=== PATIENT | female | born 1970 | race Caucasian/White ===

== ENCOUNTER 2016-04-06 16:06 | Observation (INO) | payer OTHER ==
[2016-04-06] MEDS ORDERED: PANTOPRAZOLE 40 MG/10 ML VIAL IVP STA (16:41)
[2016-04-06] MEDS ORDERED: SODIUM CHLORIDE 0.9% 1,000 ML IV STA ×3 (16:41→19:50)
[2016-04-06] MEDS ORDERED: ONDANSETRON 4 MG/2 ML VIAL IVP STA (16:41)
[2016-04-06] MEDS ORDERED: ACETAMINOPHEN IV (For NPO) 1,000 MG in EMPTY BAG 1 BAG IVPB ONE (16:43)
[2016-04-06 17:02] LABS: Basophils # (A) 0.1 k/uL (0-0.2); Basophils % (A) 0 %; CH 34.1; CHCM 35.8; Eosinophils # (A) 0.5 k/uL (0-0.7); Eosinophils % (A) 4 %; HCT 33.8 % (34.0-46.0); HDW 2.58; HGB 11.6 gm/dL (11.4-16.0); Luc # (Auto) 0.19; Luc % (Auto) 2; Lymphocytes # (A) 2.5 k/uL (1.0-4.8); Lymphocytes % (A) 20 %; MCH 32.8 pg (25.0-35.0); MCHC 34.3 g/dL (31.0-37.0); MCV 95.7 fL (80.0-100.0); Mean Platelet Volume 6.6; Monocytes # (A) 0.6 k/uL (0-1.0); Monocytes % (A) 5 %; Neutrophils % (A) 70 %; RBC 3.53 m/uL (3.80-5.40); RDW 12.4 % (11.5-15.5); WBC 12.9 k/uL (3.8-10.6); WBC (Perox) 13.15
[2016-04-06 17:12] LABS: Partial Thromboplastin Time 22.4 sec (22.0-30.0)
[2016-04-06 17:14] LABS: ALT 35 U/L (9-52); AST 19 U/L (14-36); Alkaline Phosphatase 103 U/L (38-126); Amylase 67 U/L (30-110); Anion Gap 12 mmol/L; Blood Urea Nitrogen 11 mg/dL (7-17); Calcium 9.7 mg/dL (8.4-10.2); Carbon Dioxide 19 mmol/L (22-30); Chloride 105 mmol/L (98-107); Glucose 107 mg/dL (74-99); Non-African American GFR(MDRD) >60 (>60 ml/min/1.73 sqM); Sodium 136 mmol/L (137-145); Total Bilirubin 0.3 mg/dL (0.2-1.3)
[2016-04-06 17:18] VITALS: RESP 18
--- NOTE | 2016-04-06 17:50 | CT ---
EXAMINATION TYPE: CT abdomen pelvis wo con DATE OF EXAM: 04/06/2016 5:43 PM COMPARISON: 08/10/2015 HISTORY: Pt states of abdominal pain and vomiting blood. CT DLP: 610.9 mGycm Automated exposure control for dose reduction was used. TECHNIQUE: Helical acquisition of images was performed from the lung bases through the pelvis. FINDINGS: The lung bases are clear. Heart size is normal. There is no pleural effusion. Liver spleen pancreas appear normal. Bile ducts are not dilated. There are clips from cholecystectomy . There is no adrenal mass. Kidneys have normal size and contour. There is no hydronephrosis. There i s no retroperitoneal adenopathy. There is mild atheromatous change in the abdominal aorta. Appendix a ppears normal. There are a few diverticula in the sigmoid colon. There is a metal density lateral to the mid sigmoid colon on the left side. Bladder distends smoothly. There is no sign of a pelvic mass. There is no ascites. I see no bony destructive process. Hysterectomy is noted. IMPRESSION: NEGATIVE CT SCAN OF THE ABDOMEN AND PELVIS. PREVIOUS PELVIC SURGERY. SIGMOID DIVERTICULOSIS WITHOUT E VIDENCE OF DIVERTICULITIS. NO CHANGE COMPARED TO OLD EXAM. NO SIGN OF ACUTE ABDOMEN AND PELVIS.
[2016-04-06] MEDS ORDERED: MORPHINE SULFATE 2 MG/ML SYRINGE IVP ONE (18:55)
[2016-04-06] MEDS ORDERED: METOCLOPRAMIDE 5 MG/ML 2 ML VIAL IVP STA (18:55)
--- NOTE | 2016-04-06 19:50 | ED ---
General Adult HPI - General Chief complaint: GI Bleed Stated complaint: vomiting blood Time Seen by Provider: 04/06/16 16:24 Source: patient, EMS Mode of arrival: EMS - History of Present Illness Initial comments: This 45-year-old white female presents with a complaint of nausea and vomiting. She barely had multiple episodes today. She states that she vomited up some blood today. She is also fairly ambiguous as to how much blood she vomited. She complains of some diffuse abdominal pain. She denies any measured fever. She relates that she cannot keep down any food or fluids. The onset of symptoms occurred this past evening but became worse this morning. She has apparently had somewhat similar symptoms with colitis in the past. She does have a history of gas off to reflux and irritable bowel syndrome as well. She also relates that she's had some diarrhea but denies any blood in her diarrhea. She takes Pepto-Bismol so her stools are black. She does have a history of narcotic abuse per old records and is quite adamant about asking for pain medications. She denies taking any aspirin but does take Motrin 800. No other complaints or modifying factors. - Related Data Home Medications Medication Instructions Recorded Confirmed Pantoprazole Sodium 40 mg PO BID 12/13/13 04/06/16 Propranolol HCl [Inderal] 60 mg PO BID 12/13/13 04/06/16 Simvastatin [Zocor] 40 mg PO HS 10/04/14 04/06/16 Loratadine [Claritin] 10 mg PO DAILY 02/20/15 04/06/16 Methocarbamol [Robaxin] 750 mg PO BID PRN 02/20/15 04/06/16 Dicyclomine [Bentyl] 20 mg PO QID 07/07/15 04/06/16 Ibuprofen [Motrin] 800 mg PO Q8H PRN 11/18/15 04/06/16 Sucralfate [Carafate] 1 gm PO ACHS 11/18/15 04/06/16 [id number] 1 tab PO Q6HR PRN 01/16/16 04/06/16 [Excedrin] Gabapentin 600 mg PO TID 02/24/16 04/06/16 Ranitidine HCl [Zantac] 150 mg PO HS PRN 02/24/16 04/06/16 Meclizine [Antivert] 12.5 mg PO Q6H PRN 04/06/16 04/06/16 Previous Rx's Medication Instructions Recorded Famotidine [Pepcid] 20 mg PO BID #30 tablet 08/10/15 Allergies Allergy/AdvReac Type Severity Reaction Status Date / Time Iodinated Contrast Media - Allergy Rash/Hives Verified 04/06/16 17:27 Oral and [Iodinated Contrast Media - IV Dye] metronidazole [From Flagyl] Allergy Unknown Verified 04/06/16 17:27 Penicillins Allergy Unknown Verified 04/06/16 17:27 aripiprazole [From Abilify] AdvReac Nausea & Verified 04/06/16 17:27 Vomiting cephalexin monohydrate AdvReac Nausea & Verified 04/06/16 17:27 [From Keflex] Vomiting ciprofloxacin [From Cipro] AdvReac Nausea & Verified 04/06/16 17:27 Vomiting Review of Systems ROS Statement: Those systems with pertinent positive or pertinent negative responses have been documented in the HPI. ROS Other: All systems not noted in ROS Statement are negative. Past Medical History Past Medical History: GERD/Reflux, Hyperlipidemia Additional Past Medical History / Comment(s): substance abuse, ibs, gastritis. substance abuse History of Any Multi-Drug Resistant Organisms: C-DIFF Date of last positivie culture/infection: 2011 MDRO Source:: stool Past Surgical History: Back Surgery, Cholecystectomy, Hysterectomy, Orthopedic Surgery, Tonsillectomy, Tubal Ligation Additional Past Surgical History / Comment(s): right eye cataract, bilateral shoulder surgery, right knee surgry, Past Anesthesia/Blood Transfusion Reactions: No Reported Reaction Past Psychological History: Bipolar Smoking Status: Current every day smoker Past Alcohol Use History: None Reported Additional Past Alcohol Use History / Comment(s): Patient was a smoker one and a half packs per day for 30 years and quit last weekend. She denies any medical marijuana, marijuana, street drug use. She does have history of narcotic abuse is currently receiving her medications on a regular basis from a physician in [facility]. She lives at home alone with her cat. She is currently . Past Drug Use History: None Reported - Past Family History Mother Family Medical History: Cancer Father Family Medical History: No Reported History Additional Family Medical History / Comment(s): Father at age 57 with history of cerebral palsy Son(s) Additional Family Medical History / Comment(s): She has 2 sons with no major medical problems. She states she is just on one of her sons. She does not have any brothers or sisters. General Exam - General Exam Comments Initial Comments: GENERAL: The patient is well nourished and well hydrated. VITAL SIGNS: Heart rate, blood pressure, respiratory rate reviewed as recorded in nurse's notes. EYES: Pupils are round and reactive. Extraocular movements are intact. No conjunctival / lid redness or swelling. ENT: No external evidence of injury, swelling, or ecchymosis. Airway is patent. Throat is clear. NECK: Nontender. No swelling or evidence of injury. No subcutaneous emphysema. Trachea is midline. No thyroid mass. HEART: Regular rate and rhythm. Good peripheral pulses. LUNGS/CHEST: Breath sounds clear and equal bilaterally. No rales, rhonchi, or wheezes. No ecchymosis, subcutaneous emphysema, or tenderness. ABDOMEN: There is mild diffuse tenderness. No palpable masses or organomegaly. No peritoneal signs. No abdominal wall swelling or ecchymosis. EXTREMITIES: No extremity tenderness. Normal muscle tone and function. No thoracolumbar tenderness. NEUROLOGIC: Sensation is grossly intact. Cranial nerve exam reveals face is symmetrical, tongue is midline, speech is clear. SKIN: No abrasions or ecchymosis is noted. No induration or masses noted. PSYCHIATRIC: Alert and oriented. Appropriate behavior and judgment. Rectal exam: There is no gross blood identified. There is some black stool noted in the rectal vault. No hemorrhoids identified. Course Vital Signs 04/06/16 04/06/16 04/06/16 16:12 17:03 19:47 Temperature 98.8 F Pulse Rate 88 88 92 Respiratory 16 18 18 Rate Blood Pressure 116/57 144/64 115/56 O2 Sat by Pulse 97 94 L 97 Oximetry Medical Decision Making - Medical Decision Making The patient is seen and examined. All diagnostics are reviewed. The patient receives some IV fluids as well as some Zofran and some Ofirmev. She complains of continued pain and later receives 2 mg of morphine as well as 10 mg of Reglan. The EKG shows a normal sinus rhythm at a rate of [address]-T wave changes identified. The OH interval is 130, the QRS duration is 82, and the QTc interval is 440. The laboratories reviewed. There is some mild leukocytosis. There is no anemia. The remainder of labs are fairly unremarkable. The Hemoccult is negative. Upon recheck, she states that she does not feel well enough to go home. She has not had any further vomiting or diarrhea in the ER thus far but is worried about further eating and drinking. She requests admission to the hospital for continued treatment. The case is discussed with internal medicine and they're agreeable to admission. It is felt as though she will likely does have a gastroenteritis. There are no signs of significant GI bleeding. - Lab Data Result diagrams: 04/06/16 16:20 04/06/16 16:20 Lab Results 04/06/16 04/06/16 04/06/16 Range/Units 16:20 16:20 16:20 WBC 12.9 H (3.8-10.6) k/uL RBC 3.53 L (3.80-5.40) m/uL Hgb 11.6 (11.4-16.0) gm/dL Hct 33.8 L (34.0-46.0) % MCV 95.7 (80.0-100.0) fL MCH 32.8 (25.0-35.0) pg MCHC 34.3 (31.0-37.0) g/dL RDW 12.4 (11.5-15.5) % Plt Count 505 H (150-450) k/uL Neutrophils % 70 % Lymphocytes % 20 % Monocytes % 5 % Eosinophils % 4 % Basophils % 0 % Neutrophils # 9.0 H (1.3-7.7) k/uL Lymphocytes # 2.5 (1.0-4.8) k/uL Monocytes # 0.6 (0-1.0) k/uL Eosinophils # 0.5 (0-0.7) k/uL Basophils # 0.1 (0-0.2) k/uL PT 10.0 (9.0-12.0) sec INR 1.0 (<1.1) APTT 22.4 (22.0-30.0) sec Sodium 136 L (137-145) mmol/L Potassium 4.0 (3.5-5.1) mmol/L Chloride 105 (98-107) mmol/L Carbon Dioxide 19 L (22-30) mmol/L Anion Gap 12 mmol/L BUN 11 (7-17) mg/dL Creatinine 0.81 (0.52-1.04) mg/dL Est GFR (MDRD) Af Amer >60 (>60 ml/min/1.73 sqM) Est GFR (MDRD) Non-Af >60 (>60 ml/min/1.73 sqM) Glucose 107 H (74-99) mg/dL Plasma Lactic Acid Von (0.7-2.0) mmol/L Calcium 9.7 (8.4-10.2) mg/dL Total Bilirubin 0.3 (0.2-1.3) mg/dL AST 19 (14-36) U/L ALT 35 (9-52) U/L Alkaline Phosphatase 103 (38-126) U/L Total Protein 7.0 (6.3-8.2) g/dL Albumin 4.0 (3.5-5.0) g/dL Amylase 67 (30-110) U/L Lipase 128 (23-300) U/L Stool Occult Blood (Negative) Blood Type Blood Type Confirm Blood Type Recheck Antibody Screen Spec Expiration Date 04/06/16 04/06/16 04/06/16 Range/Units 16:20 16:20 18:07 WBC (3.8-10.6) k/uL RBC (3.80-5.40) m/uL Hgb (11.4-16.0) gm/dL Hct (34.0-46.0) % MCV (80.0-100.0) fL MCH (25.0-35.0) pg MCHC (31.0-37.0) g/dL RDW (11.5-15.5) % Plt Count (150-450) k/uL Neutrophils % % Lymphocytes % % Monocytes % % Eosinophils % % Basophils % % Neutrophils # (1.3-7.7) k/uL Lymphocytes # (1.0-4.8) k/uL Monocytes # (0-1.0) k/uL Eosinophils # (0-0.7) k/uL Basophils # (0-0.2) k/uL PT (9.0-12.0) sec INR (<1.1) APTT (22.0-30.0) sec Sodium (137-145) mmol/L Potassium (3.5-5.1) mmol/L Chloride (98-107) mmol/L Carbon Dioxide (22-30) mmol/L Anion Gap mmol/L BUN (7-17) mg/dL Creatinine (0.52-1.04) mg/dL Est GFR (MDRD) Af Amer (>60 ml/min/1.73 sqM) Est GFR (MDRD) Non-Af (>60 ml/min/1.73 sqM) Glucose (74-99) mg/dL Plasma Lactic Acid Von 0.8 (0.7-2.0) mmol/L Calcium (8.4-10.2) mg/dL Total Bilirubin (0.2-1.3) mg/dL AST (14-36) U/L ALT (9-52) U/L Alkaline Phosphatase (38-126) U/L Total Protein (6.3-8.2) g/dL Albumin (3.5-5.0) g/dL Amylase (30-110) U/L Lipase (23-300) U/L Stool Occult Blood (Negative) Blood Type A Negative Blood Type Confirm A Negative Blood Type Recheck CABO Indicated Antibody Screen NEGATIVE Spec Expiration Date 04/09/2016 - 231904/06/16 Range/Units 19:30 WBC (3.8-10.6) k/uL RBC (3.80-5.40) m/uL Hgb (11.4-16.0) gm/dL Hct (34.0-46.0) % MCV (80.0-100.0) fL MCH (25.0-35.0) pg MCHC (31.0-37.0) g/dL RDW (11.5-15.5) % Plt Count (150-450) k/uL Neutrophils % % Lymphocytes % % Monocytes % % Eosinophils % % Basophils % % Neutrophils # (1.3-7.7) k/uL Lymphocytes # (1.0-4.8) k/uL Monocytes # (0-1.0) k/uL Eosinophils # (0-0.7) k/uL Basophils # (0-0.2) k/uL PT (9.0-12.0) sec INR (<1.1) APTT (22.0-30.0) sec Sodium (137-145) mmol/L Potassium (3.5-5.1) mmol/L Chloride (98-107) mmol/L Carbon Dioxide (22-30) mmol/L Anion Gap mmol/L BUN (7-17) mg/dL Creatinine (0.52-1.04) mg/dL Est GFR (MDRD) Af Amer (>60 ml/min/1.73 sqM) Est GFR (MDRD) Non-Af (>60 ml/min/1.73 sqM) Glucose (74-99) mg/dL Plasma Lactic Acid Von (0.7-2.0) mmol/L Calcium (8.4-10.2) mg/dL Total Bilirubin (0.2-1.3) mg/dL AST (14-36) U/L ALT (9-52) U/L Alkaline Phosphatase (38-126) U/L Total Protein (6.3-8.2) g/dL Albumin (3.5-5.0) g/dL Amylase (30-110) U/L Lipase (23-300) U/L Stool Occult Blood Negative (Negative) Blood Type Blood Type Confirm Blood Type Recheck Antibody Screen Spec Expiration Date Disposition Clinical Impression: Hematochezia, Gastroenteritis, Intractable nausea and vomiting, Abdominal pain , Irritable bowel syndrome (IBS), Leukocytosis, History of narcotic addiction, Diarrhea, Nausea and vomiting Disposition: ADMITTED IP TO THIS [facility] Condition: Good Time of Disposition: 20:21 Decision Date: 04/06/16 Decision Time: 20:22
[2016-04-06] MEDS ORDERED: NALOXONE 0.4 MG/ML 1 ML VIAL IV PRN (20:22)
[2016-04-06] MEDS ORDERED: METOCLOPRAMIDE 5 MG/ML 2 ML VIAL IVP PRN (20:25)
[2016-04-06] MEDS ORDERED: ACETAMINOPHEN IV (For NPO) 1,000 MG in EMPTY BAG 1 BAG IVPB PRN (20:25)
[2016-04-06] MEDS ORDERED: METHOCARBAMOL 750 MG TAB PO PRN (20:26)
[2016-04-06] MEDS ORDERED: MECLIZINE 12.5 MG TAB PO PRN (20:26)
[2016-04-06] MEDS ORDERED: ATORVASTATIN 20 MG TAB PO SCH (21:00)
[2016-04-06] MEDS: GABAPENTIN 300 MG CAP PO SCH (21:26)
[2016-04-06] MEDS: SUCRALFATE 1 GM TAB PO SCH (21:26)
[2016-04-06] MEDS: DICYCLOMINE 20 MG TAB PO SCH (21:26)
[2016-04-06] MEDS: PROPRANOLOL 20 MG TAB PO SCH (21:26)
[2016-04-06] MEDS: MORPHINE SULFATE 2 MG/ML SYRINGE IVP PRN (21:50)
[2016-04-06] MEDS: ONDANSETRON 4 MG/2 ML VIAL IVP PRN (21:54)
[2016-04-07] MEDS: MORPHINE SULFATE 2 MG/ML SYRINGE IVP PRN ×5 (01:05→14:50)
[2016-04-07] MEDS: ONDANSETRON 4 MG/2 ML VIAL IVP PRN ×4 (01:59→14:50)
[2016-04-07] MEDS: SUCRALFATE 1 GM TAB PO SCH ×2 (08:00→11:57)
[2016-04-07] MEDS: DICYCLOMINE 20 MG TAB PO SCH ×2 (08:00→11:58)
[2016-04-07] MEDS: PROPRANOLOL 20 MG TAB PO SCH (08:01)
[2016-04-07] MEDS: GABAPENTIN 300 MG CAP PO SCH ×2 (08:01→15:00)
[2016-04-07] MEDS ORDERED: PANTOPRAZOLE 40 MG/10 ML VIAL IV SCH (09:00)
[2016-04-07] MEDS ORDERED: ENOXAPARIN 40 MG/0.4 ML SYRINGE SQ SCH (09:00)
[2016-04-07] MEDS ORDERED: LORATADINE 10 MG TAB PO SCH (09:00)
[2016-04-07 09:29] LABS: Basophils % (A) 0 %; CH 33.7; CHCM 34.7; Eosinophils # (A) 0.3 k/uL (0-0.7); Eosinophils % (A) 3 %; HCT 31.1 % (34.0-46.0); HDW 2.62; HGB 10.3 gm/dL (11.4-16.0); Luc # (Auto) 0.12; Luc % (Auto) 1; Lymphocytes # (A) 3.2 k/uL (1.0-4.8); Lymphocytes % (A) 35 %; MCH 32.2 pg (25.0-35.0); MCV 97.5 fL (80.0-100.0); Mean Platelet Volume 7.3; Monocytes # (A) 0.6 k/uL (0-1.0); Monocytes % (A) 7 %; Neutrophils # (A) 4.7 k/uL (1.3-7.7); Neutrophils % (A) 53 %; RBC 3.19 m/uL (3.80-5.40); RDW 12.5 % (11.5-15.5); WBC 8.9 k/uL (3.8-10.6); WBC (Perox) 9.47
[2016-04-07 14:33] VITALS: BP 133/79; PULSE 83; TEMP 98.5
--- NOTE | 2016-04-07 18:34 | HP ---
H&P and DISCHARGE SUMMARY DATE OF ADMISSION: Patient is a 45-year-old female who came in with complaints of nausea, vomiting, epigastric abdominal pain, burning sensation. Patient does have real bad gastritis, as per the patient. Patient also vomited blood, as per the patient, because of which patient is admitted. Patient's symptoms completely resolved, patient being n.p.o., and patient will advance the diet to soft diet. If she is able to tolerate, patient will be discharged. Patient takes Protonix at home along with Maalox, which she is asked to continue. She probably may need an upper GI endoscopy. Patient takes naproxen, which was discontinued, and instead will give her tramadol for pain because of her severe gastritis. Patient denied any fever or chills. Patient denied any dysuria. Patient did have nausea and vomiting, which resolved at this point of time. Patient had minimal leukocytosis, which resolved. Home medications include: 1. Pantoprazole. 2. Propranolol. 3. Simvastatin. 4. Loratadine. 5. Methocarbamol. 6. Dicyclomine. 7. Ibuprofen. 8. Sucralfate. 9. Aspirin. 10. Acetaminophen and caffeine combination. 11. Gabapentin. 12. Ranitidine. 13. Meclizine. 14. Famotidine. ALLERGIES: 1. IODINATED RADIOCONTRAST. 2. METRONIDAZOLE. 3. PENICILLINS. 4. OMEPRAZOLE. 5. ARIPIPRAZOLE. 6. CEPHALEXIN. 7. CIPROFLOXACIN. Patient has a history of colitis in the past, although CT of the abdomen during this hospitalization was essentially negative for any diverticulitis. PAST SURGICAL HISTORY: 1. Back surgery. 2. Cholecystectomy. 3. Hysterectomy. 4. Orthopedic surgery in the past. 5. Tonsillectomy. 6. Tubal ligation surgery. SOCIAL HISTORY: Patient used to smoke until this weekend; used to smoke half a pack per day. She denied any drug abuse. FAMILY HISTORY: Mother had cancer. Father had cerebral palsy. PHYSICAL EXAMINATION: VITAL SIGNS: Temperature 98.5, pulse of 83, respiratory rate of 18. Blood pressure is 133/79. Saturating at 98% on room air. GENERAL: The patient is alert and oriented x3, not in any acute distress. Well developed, well nourished. HEENT: Pupils are round and equally reacting to light. EOMI. No scleral icterus. No conjunctival pallor. Normocephalic, atraumatic. No pharyngeal erythema. No thyromegaly. CARDIOVASCULAR: S1 and S2 present. No murmurs, rubs, or gallops. PULMONARY: Chest is clear to auscultation, no wheezing or crackles. ABDOMEN: Soft, nontender, nondistended, normoactive bowel sounds. No palpable organomegaly. MUSCULOSKELETAL: No joint swelling or deformity. EXTREMITIES: No cyanosis, clubbing, or pedal edema. NEUROLOGICAL: Gross neurological examination did not reveal any focal deficits. SKIN: No rashes. LABORATORY DATA: CBC, CMP are abnormal for minimal drop in hemoglobin from 11.6 to 10.3, which completely resolved at this point of time. Mildly low bicarbonate with normal anion gap of 12. Low bicarbonate is secondary to nausea and vomiting, probably. ASSESSMENT AND PLAN: 1. Gastritis or peptic ulcer disease leading to nausea, vomiting; symptoms improved at this point of time. Since her symptoms improved, will advance diet. If she is able to tolerate, patient will be discharged to follow up with Gastroenterology as an outpatient and with her primary care physician as an outpatient. Naproxen will be discontinued, as mentioned above. 2. Hyperlipidemia. 3. Hypertension. 4. Metabolic acidosis secondary to loss of bicarbonate from the gastrointestinal tract. Patient will be discharged today. This dictation is both H&P and discharge summary. Leukocytosis is reactive response. Patient will be discharged today in stable medical condition to home. Patient will follow up with Dr. Antonia Grimes in about 3 to 7 days; Dr. Kala Dey in about a week. Activity as tolerated. Cardiac diet.
== END 2016-04-07 16:11 | disposition home or self-care (01) ==
LOC: EC 16:06 → 4MS4W 20:22
PROVIDERS: ADMIT Internal Medicine; ATTEND Internal Medicine
DX: K29.70 Gastritis, unspecified, without bleeding (principal); E78.5 Hyperlipidemia, unspecified; I10 Essential (primary) hypertension; E87.2 Acidosis; K21.9 Gastro-esophageal reflux disease without esophagitis; K58.9 Irritable bowel syndrome, unspecified; Z16.24 Resistance to multiple antibiotics; F17.200 Nicotine dependence, unspecified, uncomplicated; F11.20 Opioid dependence, uncomplicated; Z79.899 Other long term (current) drug therapy; Z88.0 Allergy status to penicillin; Z88.1 Allergy status to other antibiotic agents; Z91.041 Radiographic dye allergy status; Z80.9 Family history of malignant neoplasm, unspecified
CPT/HCPCS: 36415; 93005; 86900; 86901; 80053; 82150; 83605; 83690; 85025 ×2; 85610; 85730; 86850; 82272; 74176; 99285; 96374; 96375 ×4; 96361 ×4; G0378 ×2; J2765; J2405 ×2; J1650; J2270 ×2; J0131; C9113 ×2; 96372; 96376

== ENCOUNTER 2016-04-09 04:38 | Observation (INO) | payer OTHER ==
[2016-04-09] MEDS ORDERED: SODIUM CHLORIDE 0.9% 1,000 ML IV ONE (04:46)
[2016-04-09] MEDS ORDERED: SODIUM CHLORIDE 0.9% 1,000 ML IV STA (04:46)
[2016-04-09] MEDS ORDERED: SODIUM CHLORIDE 0.9% 500 ML IV STA (04:46)
[2016-04-09] MEDS ORDERED: ONDANSETRON 4 MG/2 ML VIAL IVP PRN (04:46)
[2016-04-09] MEDS ORDERED: MORPHINE SULFATE 4 MG/ML SYRINGE IV STA (04:46)
[2016-04-09] MEDS ORDERED: MORPHINE SULFATE 2 MG/ML SYRINGE IVP PRN (04:46)
[2016-04-09] MEDS ORDERED: ACETAMINOPHEN IV (For NPO) 1,000 MG in EMPTY BAG 1 BAG IVPB STA (04:51)
[2016-04-09] MEDS ORDERED: ACETAMINOPHEN IV (For NPO) 1,000 MG in EMPTY BAG 1 BAG IVPB PRN (04:51)
[2016-04-09] MEDS ORDERED: PANTOPRAZOLE 40 MG/10 ML VIAL IVP STA (04:52)
--- NOTE | 2016-04-09 04:52 | ED ---
General Adult HPI - General Chief complaint: Abdominal Pain Stated complaint: nausea,vomiting Time Seen by Provider: 04/09/16 04:46 Source: patient, EMS, RN notes reviewed, old records reviewed Mode of arrival: EMS Limitations: no limitations - History of Present Illness Initial comments: This is a 45-year-old female the ER for evaluation nausea vomiting. Intractable nausea vomiting diarrhea. Patient with similar symptoms in the ER 3 days ago is symptoms are progressing and getting worse. No help with outpatient therapy. Patient also notes fever today. Continue vomiting unable to keep anything down. No chest pain no bowel pain or shortness of breath. - Related Data Home Medications Medication Instructions Recorded Confirmed Pantoprazole Sodium 40 mg PO BID 12/13/13 04/06/16 Propranolol HCl [Inderal] 60 mg PO BID 12/13/13 04/06/16 Simvastatin [Zocor] 40 mg PO HS 10/04/14 04/06/16 Loratadine [Claritin] 10 mg PO DAILY 02/20/15 04/06/16 Methocarbamol [Robaxin] 750 mg PO BID PRN 02/20/15 04/06/16 Dicyclomine [Bentyl] 20 mg PO QID 07/07/15 04/06/16 Sucralfate [Carafate] 1 gm PO ACHS 11/18/15 04/06/16 [id number] 1 tab PO Q6HR PRN 01/16/16 04/06/16 [Excedrin] Gabapentin 600 mg PO TID 02/24/16 04/06/16 Ranitidine HCl [Zantac] 150 mg PO HS PRN 02/24/16 04/06/16 Meclizine [Antivert] 12.5 mg PO Q6H PRN 04/06/16 04/06/16 Previous Rx's Medication Instructions Recorded Famotidine [Pepcid] 20 mg PO BID #30 tablet 08/10/15 traMADol HCL [Ultram] 50 mg PO Q4HR PRN #20 tab 04/07/16 Allergies Allergy/AdvReac Type Severity Reaction Status Date / Time Iodinated Contrast Media - Allergy Rash/Hives Verified 04/09/16 04:42 Oral and [Iodinated Contrast Media - IV Dye] metronidazole [From Flagyl] Allergy Unknown Verified 04/09/16 04:42 Penicillins Allergy Unknown Verified 04/09/16 04:42 aripiprazole [From Abilify] AdvReac Nausea & Verified 04/09/16 04:42 Vomiting cephalexin monohydrate AdvReac Nausea & Verified 04/09/16 04:42 [From Keflex] Vomiting ciprofloxacin [From Cipro] AdvReac Nausea & Verified 04/09/16 04:42 Vomiting Review of Systems ROS Statement: Those systems with pertinent positive or pertinent negative responses have been documented in the HPI. ROS Other: All systems not noted in ROS Statement are negative. Past Medical History Past Medical History: GERD/Reflux, Hyperlipidemia Additional Past Medical History / Comment(s): substance abuse (pills), ibs, gastritis. substance abuse History of Any Multi-Drug Resistant Organisms: C-DIFF Date of last positivie culture/infection: 2011 MDRO Source:: stool Past Surgical History: Back Surgery, Cholecystectomy, Hysterectomy, Orthopedic Surgery, Tonsillectomy, Tubal Ligation Additional Past Surgical History / Comment(s): right eye cataract, bilateral shoulder surgery, right knee surgry, Past Anesthesia/Blood Transfusion Reactions: No Reported Reaction Past Psychological History: Bipolar Smoking Status: Current every day smoker Past Alcohol Use History: None Reported Additional Past Alcohol Use History / Comment(s): She does have history of narcotic abuse. She lives at home alone with her cat. Past Drug Use History: None Reported - Past Family History Mother Family Medical History: Cancer Father Family Medical History: No Reported History Additional Family Medical History / Comment(s): Father at age 57 with history of cerebral palsy Son(s) Additional Family Medical History / Comment(s): She has 2 sons with no major medical problems. She states she is just on one of her sons. She does not have any brothers or sisters. General Exam Limitations: no limitations General appearance: alert, in no apparent distress, anxious Head exam: Present: atraumatic, normocephalic, normal inspection Eye exam: Present: normal appearance, PERRL, EOMI. Absent: scleral icterus, conjunctival injection, periorbital swelling ENT exam: Present: normal exam, mucous membranes moist Neck exam: Present: normal inspection. Absent: tenderness, meningismus, lymphadenopathy Respiratory exam: Present: normal lung sounds bilaterally. Absent: respiratory distress, wheezes, rales, rhonchi, stridor Cardiovascular Exam: Present: regular rate, normal rhythm, normal heart sounds. Absent: systolic murmur, diastolic murmur, rubs, gallop, clicks GI/Abdominal exam: Present: soft, normal bowel sounds. Absent: distended, tenderness, guarding, rebound, rigid Extremities exam: Present: normal inspection, full ROM, normal capillary refill. Absent: tenderness, pedal edema, joint swelling, calf tenderness Back exam: Present: normal inspection Neurological exam: Present: alert, oriented X3, CN II-XII intact Psychiatric exam: Present: normal affect, normal mood Skin exam: Present: warm, dry, intact, normal color. Absent: rash Course Vital Signs 04/09/16 04:42 Temperature 100.2 F H Pulse Rate 89 Respiratory 16 Rate Blood Pressure 138/63 O2 Sat by Pulse 98 Oximetry - Reevaluation(s) Reevaluation #1: 04/09/16 04:51 Patient's symptoms appear to be improved Medical Decision Making - Medical Decision Making 3 [facility] ER for evaluation. The patient is a came in here for evaluation of nausea vomiting. Nausea vomiting diarrhea. Patient even palpation again progressively worse regardless medications taken at home unable to keep down fluids or food. Patient will be admitted for symptom control - Radiology Data Radiology results: report reviewed (X-ray abdominal series with chest is negative), image reviewed Disposition Clinical Impression: Nausea & vomiting, Gastroenteritis, Failure of outpatient treatment Disposition: ADMITTED IP TO THIS [facility] Condition: Fair Referrals: Antonia Grimes MD [Primary Care Provider] - 1-2 days
[2016-04-09] MEDS: SODIUM CHLORIDE 0.9% 1,000 ML IV STA ×2 (05:09→10:31)
[2016-04-09 05:34] LABS: Basophils % (A) 0 %; CH 34.2; CHCM 36.6; Eosinophils # (A) 0.3 k/uL (0-0.7); Eosinophils % (A) 3 %; HCT 32.7 % (34.0-46.0); HGB 11.5 gm/dL (11.4-16.0); Luc # (Auto) 0.08; Luc % (Auto) 1; Lymphocytes # (A) 2.2 k/uL (1.0-4.8); Lymphocytes % (A) 18 %; MCHC 35.1 g/dL (31.0-37.0); Mean Platelet Volume 7.3; Monocytes # (A) 0.8 k/uL (0-1.0); Monocytes % (A) 6 %; Neutrophils % (A) 72 %; RBC 3.47 m/uL (3.80-5.40); RDW 12.5 % (11.5-15.5); WBC 12.4 k/uL (3.8-10.6); WBC (Perox) 12.84
[2016-04-09 05:53] LABS: ALT 41 U/L (9-52); AST 26 U/L (14-36); Alkaline Phosphatase 91 U/L (38-126); Anion Gap 10 mmol/L; Blood Urea Nitrogen 8 mg/dL (7-17); Calcium 9.7 mg/dL (8.4-10.2); Carbon Dioxide 23 mmol/L (22-30); Chloride 103 mmol/L (98-107); Glucose 121 mg/dL (74-99); Magnesium 1.6 mg/dL (1.6-2.3); Non-African American GFR(MDRD) >60 (>60 ml/min/1.73 sqM); Potassium 4.1 mmol/L (3.5-5.1); Sodium 136 mmol/L (137-145); Total Bilirubin 0.4 mg/dL (0.2-1.3); Total Protein 6.8 g/dL (6.3-8.2)
[2016-04-09 06:04] LABS: Creatine Kinase 33 U/L (30-135)
[2016-04-09 06:14] LABS: Creatine Kinase MB <0.2 ng/mL (0.0-2.4)
[2016-04-09 06:15] LABS: Appearance,Urine Clear (Clear); Bilirubin,Urine Negative (Negative); Glucose,Urine (UA) Negative (Negative); Ketones,Urine Negative (Negative); Leukocyte Esterase,Urine Negative (Negative); Mucus,Urine Rare /hpf; Nitrite,Urine Negative (Negative); Particle Count 2656; Protein,Urine 2+ (Negative); RBC,Urine 10 /hpf (0-5); Specific Gravity,Urine 1.007 (1.001-1.035); Squamous Epithelial Cell,Urine 1 /hpf (0-4); UA Billing (MACRO vs. MICRO) MICRO; Urobilinogen,Urine <2.0 mg/dL (<2.0); WBC,Urine 1 /hpf (0-5)
--- NOTE | 2016-04-09 06:52 | XR ---
EXAMINATION TYPE: XR abdomen acute w cxr DATE OF EXAM: 04/09/2016 5:25 AM COMPARISON: 01/31/2016 HISTORY: Abdominal pain TECHNIQUE: Single view of the chest and 2 views of the abdomen are submitted. FINDINGS: Heart and mediastinum are normal. Lungs are clear. Bowel gas pattern is normal. There is no sign of i ntestinal obstruction or pneumoperitoneum. Fecal pattern is normal. There are clips from tubal ligati on.. IMPRESSION: Nonacute abdomen. Normal chest. No change.
[2016-04-09] MEDS ORDERED: PANTOPRAZOLE 40 MG/10 ML VIAL IVP SCH (09:00)
[2016-04-09] MEDS: ENOXAPARIN 40 MG/0.4 ML SYRINGE SQ SCH (10:29)
[2016-04-09] MEDS: METOCLOPRAMIDE 5 MG TAB PO SCH (16:30)
--- NOTE | 2016-04-09 17:16 | P.HPIM ---
History of Present Illness H&P Date: 04/09/16 Chief Complaint: Abdominal pain This is a 45-year-old female was seen by 2 other physicians prior to me and was admitted and discharged home as patient was noted to have abdominal pain of unknown etiology. Patient apparently has had a significant workup done in the past in regards to this. Patient was admitted to the hospital previously with complaints of epigastric pain with nausea however no episodes of vomitus. Patient apparently request for multiple narcotics there was some pain seeking behavior that was felt by the previous physicians. Patient was discharged home on oral medications however came back in to the hospital with complaints of epigastric pain. An abdominal series was done today no abnormality was found. Patient had a T-max of 100.2. Patient denies having any difficulty breathing, chest pain, cough, generalized weakness or other constitutional symptoms. Patient is having any urinary urgency or frequency or diarrhea. Patient's only complaints are epigastric pain and nausea not associated with vomitus at this time. Patient states that she has a history of gastritis and is concerned that it has returned. Patient is on a PPI, H2 jose g, Carafate unsure why the same medications or be maintained on at this time. Laboratory values were within normal limits at the time of my examination patient appeared comfortable. Review of Systems All systems: negative (Noted in HPI) Past Medical History Past Medical History: GERD/Reflux, Hyperlipidemia, Rheumatoid Arthritis (RA) Additional Past Medical History / Comment(s): Pt recently admitted to [facility] on with nausea, vomiting and epigastric pain. Other hx: substance abuse ( pills), ibs, colitis, gastritis, chronic back pain, DDD, sinus problems. substance abuse History of Any Multi-Drug Resistant Organisms: C-DIFF Date of last positivie culture/infection: 2011 MDRO Source:: stool Past Surgical History: Cholecystectomy, Hysterectomy, Joint Replacement, Orthopedic Surgery, Tonsillectomy, Tubal Ligation Additional Past Surgical History / Comment(s): right eye cataract, R shoulder arthroscopy with anchors placed then total R shoulder, right knee surgry for spurs, skin tags off back and L shoulder (benign). Past Anesthesia/Blood Transfusion Reactions: No Reported Reaction Past Psychological History: Bipolar Additional Psychological History / Comment(s): Pt states she has had increased depression lately r/t health issues. She denies suicidal thoughts or plans. She does not wich to be . She does not have any pychiatric care. She has paper work which she is having difficulty completing it is for "Adult services" . She resides alone and has a cat. 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 Smoking Status: Former smoker Past Alcohol Use History: None Reported Additional Past Alcohol Use History / Comment(s): Pt states she started smoking as a teen and quit yesterday 04/08/16. Past Drug Use History: None Reported Additional Drug Use History / Comment(s): Pt states she has hx of narcotic abuse but it was yrs ago. - Past Family History Mother Family Medical History: Cancer Father Family Medical History: No Reported History Additional Family Medical History / Comment(s): Father at age 57 with history of cerebral palsy Son(s) Additional Family Medical History / Comment(s): She has 2 sons with no major medical problems. She does not have any brothers or sisters. Medications and Allergies Home Medications Medication Instructions Recorded Confirmed Type Pantoprazole Sodium 40 mg PO BID 12/13/13 04/09/16 History Simvastatin [Zocor] 40 mg PO HS 10/04/14 04/09/16 History Loratadine [Claritin] 10 mg PO DAILY 02/20/15 04/09/16 History Methocarbamol [Robaxin] 750 mg PO BID PRN 02/20/15 04/09/16 History Dicyclomine [Bentyl] 20 mg PO QID 07/07/15 04/09/16 History Zrzhysk-Hiod-Hoxq 231-155-12Ln 1 tab PO Q6HR PRN 01/16/16 04/09/16 History [Excedrin] Gabapentin 600 mg PO TID 02/24/16 04/09/16 History Ranitidine HCl [Zantac] 150 mg PO HS PRN 02/24/16 04/09/16 History Meclizine [Antivert] 12.5 mg PO Q6H PRN 04/06/16 04/09/16 History Allergies Allergy/AdvReac Type Severity Reaction Status Date / Time Iodinated Contrast Media - Allergy Rash/Hives Verified 04/09/16 08:49 Oral and [Iodinated Contrast Media - IV Dye] metronidazole [From Flagyl] Allergy Unknown Verified 04/09/16 08:49 Penicillins Allergy Unknown Verified 04/09/16 08:49 aripiprazole [From Abilify] AdvReac Nausea & Verified 04/09/16 08:49 Vomiting cephalexin monohydrate AdvReac Nausea & Verified 04/09/16 08:49 [From Keflex] Vomiting ciprofloxacin [From Cipro] AdvReac Nausea & Verified 04/09/16 08:49 Vomiting Physical Exam Vitals: Vital Signs Temp Pulse Pulse Resp BP BP Pulse Ox 04/09/16 15:00 99.3 F 97 16 127/70 94 L 04/09/16 10:53 20 04/09/16 08:12 99 F 83 20 109/68 97 04/09/16 06:22 98.6 F 89 16 114/61 97 Intake and Output 04/09/16 04/09/16 04/09/16 06:59 14:59 22:59 Other: Voiding Method Toilet Toilet # Voids 2 Physical exam Gen. appearance oriented 3 in no distress Neck is supple no JVD Lungs good air entry clear to auscultation no rhonchi or wheezing Heart S1-S2 heard regular rate and rhythm no murmurs appreciated Abdomen is soft nontender no organomegaly bowel sounds are intact Neurologically cranial nerves II-12 grossly intact no focal motor or sensory deficits noted Skin no abnormalities appreciated Results CBC & Chem 7: 04/09/16 04:55 04/09/16 04:55 Labs: Abnormal Lab Results - Last 24 Hours (Table) 04/09/16 04/09/16 04/09/16 Range/Units 04:55 04:55 04:55 WBC 12.4 H (3.8-10.6) k/uL RBC 3.47 L (3.80-5.40) m/uL Hct 32.7 L (34.0-46.0) % Plt Count 469 H (150-450) k/uL Neutrophils # 9.0 H (1.3-7.7) k/uL Sodium 136 L (137-145) mmol/L Glucose 121 H (74-99) mg/dL Plasma Lactic Acid Von 0.6 L (0.7-2.0) mmol/L Urine Protein (Negative) Urine Blood (Negative) Urine RBC (0-5) /hpf Urine Mucus (None) /hpf 04/09/16 Range/Units 05:50 WBC (3.8-10.6) k/uL RBC (3.80-5.40) m/uL Hct (34.0-46.0) % Plt Count (150-450) k/uL Neutrophils # (1.3-7.7) k/uL Sodium (137-145) mmol/L Glucose (74-99) mg/dL Plasma Lactic Acid Von (0.7-2.0) mmol/L Urine Protein 2+ H (Negative) Urine Blood Small H (Negative) Urine RBC 10 H (0-5) /hpf Urine Mucus Rare H (None) /hpf Microbiology - Last 24 Hours (Table) 04/09/16 05:50 Urine Culture - Preliminary Urine,Voided Thrombosis Risk Factor Assmnt - Choose All That Apply Any of the Below Risk Factors Present?: Yes Each Factor Represents 1 point: Age 41-60 years, Obesity (BMI >25) Other Risk Factors: No Other congenital or acquired thrombophilia - If yes, enter type in comment: No Thrombosis Risk Factor Assessment Total Risk Factor Score: 2 Thrombosis Risk Factor Assessment Level: Low Risk Assessment and Plan Plan: #1 acute gastroenteritis likely viral there may be an aspect of exacerbation of gastritis. #2 pain seeking behavior with opioid dependence #3 intractable nausea vomiting #4 history of rheumatoid arthritis #5 disability Plan This is a difficult patient as patient gets admitted to the hospital with nonspecific symptoms. Does not appear to have any abnormalities clinically and on prior evaluations radiologically as well. Patient does have some pain seeking behavior. I did discuss that I do not want to entertain any opiates at this time as patient was not on a prior to admission and a do not see need to treat nausea and epigastric pain with that. Patient will be continued on her anti-acid reflux medications patient will be continued on a clear liquid diet and advance as tolerated. I discussed this with the patient that patient was started on Reglan 5 mg by mouth twice a day and Zofran when necessary and symptomatically control of her symptoms may be beneficial. If patient has significant GI symptoms a concern should be noted for some withdrawal of opioids as well. can likely be discharged in the next 24 hours.
[2016-04-09] MEDS: ACETAMINOPHEN TAB 325 MG TAB PO PRN (17:49)
[2016-04-10] MEDS: ACETAMINOPHEN TAB 325 MG TAB PO PRN (05:49)
[2016-04-10] MEDS: ENOXAPARIN 40 MG/0.4 ML SYRINGE SQ SCH (08:30)
[2016-04-10] MEDS: METOCLOPRAMIDE 5 MG TAB PO SCH ×3 (08:30→17:31)
[2016-04-10] MEDS: PANTOPRAZOLE 40 MG TABLET PO SCH (08:30)
[2016-04-10] MEDS: SODIUM CHLORIDE 0.9% 1,000 ML IV SCH ×2 (14:42→23:05)
[2016-04-10] MEDS: traMADol 50 MG TAB PO PRN ×2 (15:05→22:56)
[2016-04-10] MEDS: ONDANSETRON 4 MG TAB PO PRN ×2 (15:10→22:57)
[2016-04-10] MEDS ORDERED: traMADol 50 MG TAB PO SCH (16:00)
[2016-04-10 17:19] VITALS: BMI 31.5
[2016-04-10] MEDS ORDERED: METHOCARBAMOL 750 MG TAB PO PRN (19:05)
[2016-04-10] MEDS ORDERED: ASPIRIN-ACET-CAFF 250-250-65MG 1 EACH TAB PO PRN (19:05)
[2016-04-10] MEDS ORDERED: MECLIZINE 12.5 MG TAB PO PRN (19:05)
[2016-04-10] MEDS: GABAPENTIN 300 MG CAP PO SCH (21:06)
[2016-04-10] MEDS: ATORVASTATIN 20 MG TAB PO SCH (21:06)
[2016-04-10] MEDS: DICYCLOMINE 20 MG TAB PO SCH (21:06)
[2016-04-11] MEDS: METOCLOPRAMIDE 5 MG TAB PO SCH ×3 (07:54→17:41)
[2016-04-11] MEDS: PANTOPRAZOLE 40 MG TABLET PO SCH (07:54)
[2016-04-11] MEDS: DICYCLOMINE 20 MG TAB PO SCH ×4 (07:54→21:08)
[2016-04-11] MEDS: ENOXAPARIN 40 MG/0.4 ML SYRINGE SQ SCH (07:54)
[2016-04-11] MEDS: GABAPENTIN 300 MG CAP PO SCH ×3 (07:54→21:08)
[2016-04-11] MEDS: LORATADINE 10 MG TAB PO SCH (07:54)
[2016-04-11] MEDS: traMADol 50 MG TAB PO PRN ×2 (07:55→17:45)
--- NOTE | 2016-04-11 08:01 | PN ---
DATE OF SERVICE: 04/10/2016 This 45-year-old woman admitted with incessant abdominal pain, also complaining of some diarrhea. The patient was unable to keep anything down according to the patient. The patient also has history of irritable bowel syndrome and multiple other complex medical issues. Patient is scheduled for outpatient endoscopy apparently. PAST MEDICAL HISTORY: Reviewed. REVIEW OF SYSTEMS: CARDIOVASCULAR: No angina. RESPIRATORY: As mentioned earlier. GI: As mentioned earlier. : No dysuria. NERVOUS SYSTEM: No numbness or weakness. Medications are reviewed and include: 1. Tylenol 650 q.4 p.r.n. 2. Lovenox 40 mg subcu daily. 3. Reglan 5 mg. 4. Protonix. 5. Ultram. PHYSICAL EXAMINATION: Alert and oriented x3. Pulse 119, blood pressure 130/81, respirations 20, temperature 98.8, pulse ox 99% on room air. HEENT: Conjunctivae normal. NECK: No jugular venous distention. CARDIOVASCULAR: S1 and S2, muffled. RESPIRATORY: Breath sounds diminished at the bases. A few scattered rhonchi and crackles. ABDOMEN: Soft. Mild diffuse tenderness present. No guarding. No rigidity. No mass palpable. LEGS: No edema, no swelling. NERVOUS SYSTEM: Higher function as mentioned. Moves all four limbs. No focal motor deficits. LYMPHATIC: No lymphadenopathy in the neck, axillae or groin. SKIN: No ulcer, rash or bleeding. LABS: WBC 12.3, hemoglobin 11.5. Sodium 136. UA noted. ASSESSMENT: 1. Abdominal pain for evaluation rule out acute gastritis or peptic ulcer disease. 2. Increased white blood cell count, reactive. 3. Increased platelets. 4. Hyponatremia. 5. Rule out irritable bowel syndrome. 6. History of gastroesophageal reflux disease. 7. Hyperlipidemia. 8. History of rheumatoid arthritis. 9. History of polysubstance abuse. 10. Previous history of Clostridium difficile. 11. History of degenerative joint disease. 12. History of bipolar. 13. Remote history nicotine dependence. RECOMMENDATIONS AND DISCUSSION: In this 45-year-old woman present with multiple complex medical issues. Will monitor the patient closely. Continue the current medications and symptomatic treatment. I would recommend an extremely bland diet at this time and gastroenterology evaluation with Dr. Acevedo or Dr. Dey for possible endoscopies. Guarded prognosis because of multiple complex medical issues. Further recommendations to follow.
[2016-04-11 09:02] LABS: Basophils # (A) 0.1 k/uL (0-0.2); Basophils % (A) 1 %; CH 33.7; CHCM 34.4; Eosinophils # (A) 0.2 k/uL (0-0.7); Eosinophils % (A) 3 %; HCT 32.9 % (34.0-46.0); HDW 2.62; HGB 10.9 gm/dL (11.4-16.0); Luc # (Auto) 0.19; Luc % (Auto) 2; Lymphocytes # (A) 3.3 k/uL (1.0-4.8); Lymphocytes % (A) 42 %; MCH 32.5 pg (25.0-35.0); MCHC 33.1 g/dL (31.0-37.0); MCV 98.3 fL (80.0-100.0); Mean Platelet Volume 6.5; Monocytes # (A) 0.6 k/uL (0-1.0); Monocytes % (A) 8 %; Neutrophils # (A) 3.6 k/uL (1.3-7.7); Neutrophils % (A) 46 %; RBC 3.35 m/uL (3.80-5.40); RDW 12.8 % (11.5-15.5)
[2016-04-11 09:18] LABS: Anion Gap 10 mmol/L; Blood Urea Nitrogen 7 mg/dL (7-17); Calcium 9.2 mg/dL (8.4-10.2); Carbon Dioxide 22 mmol/L (22-30); Chloride 108 mmol/L (98-107); Glucose 81 mg/dL (74-99); Non-African American GFR(MDRD) >60 (>60 ml/min/1.73 sqM); Sodium 140 mmol/L (137-145)
[2016-04-11] MEDS: SODIUM CHLORIDE 0.9% 1,000 ML IV SCH ×2 (09:41→21:08)
--- NOTE | 2016-04-11 10:51 | CONS ---
DATE OF CONSULTATION: 04/11/2016 REASON FOR CONSULTATION: Nausea, vomiting, diarrhea. HISTORY OF PRESENT ILLNESS: The patient is a 45-year-old white female who is known to me from multiple previous office visits. Has history of severe irritable bowel syndrome that was diagnosed several years ago. She has been maintained on Bentyl on an outpatient basis. The last time she was seen in the office was about a year ago. The patient was admitted to the hospital with acute onset of nausea, vomiting, and diarrhea for the last few weeks duration. She states that since being in the hospital she has had such intense nausea that she is not able to tolerate even liquids. She complains of diffuse abdominal pain, mostly in the epigastric area. However, since being in the hospital her diarrhea has resolved and in fact she did not have any bowel movements all day yesterday or today. She denies any rectal bleeding or melena. She reports no recent weight loss. She had a colonoscopy done by me in January 2015, which showed scattered sigmoid diverticulosis, but no evidence of colitis or colorectal neoplasia. She also had an upper endoscopy done about a year ago showing some gastritis. No prior history of peptic ulcer disease or recent NSAID use. Since being in the hospital she continues to complain of severe abdominal pain. She reports no fever, chills, night sweats. PAST MEDICAL HISTORY: Significant for GERD, IBS, rheumatoid arthritis, hyperlipidemia, substance abuse, chronic sinusitis. PAST SURGICAL HISTORY: Hysterectomy, cholecystectomy, tubal ligation, tonsillectomy, EGD, colonoscopy in the last one year. SOCIAL HISTORY: Smoking in the past. No smoking currently. No alcohol use. FAMILY HISTORY: Mother had some kind of cancer. Father had cerebral palsy ALLERGIES: None. REVIEW OF SYSTEMS: CARDIOPULMONARY: No chest pain or shortness of breath. GENITOURINARY: No dysuria or hematuria. MUSCULOSKELETAL: Unremarkable. ALLERGIES: PENICILLIN, FLAGYL, ABILIFY, KEFLEX, CIPRO, IV DYE. REVIEW OF SYSTEMS: CARDIOPULMONARY: No chest pain or shortness of breath. GENITOURINARY: No dysuria or hematuria. MUSCULOSKELETAL: Chronic back pain. NEUROLOGY: Unremarkable. PSYCHIATRIC: History of anxiety, depression. ENT: Vision: Unremarkable. CONSTITUTIONAL: No recent weight loss. No fevers, chills or night sweats. ENDOCRINE: Unremarkable. HEMATOLOGY: Unremarkable. On physical examination, she appears comfortable in no apparent distress. Vitals as are stable. Blood pressure is 128/82, pulse is 75, temperature 98.2. HEENT: Examination is unremarkable. Conjunctivae pink. Sclerae anicteric. Oral cavity, no lesions. NECK: No JVD or lymph node enlargement. CHEST: Clear to auscultation. HEART: Regular rate and rhythm. ABDOMEN: Soft. Bowel sounds are positive. No organomegaly. EXTREMITIES: No pedal edema. SKIN: No rashes. NEURO: Alert and oriented x4. No focal deficits. LABS: WBC 12.4, hemoglobin 11.5. Platelets are normal. Basic metabolic panel is within normal limits. IMPRESSION: This is a lady with a long-standing history of irritable bowel syndrome, admitted to the hospital with nausea, vomiting, and diarrhea for the last few weeks' duration. Most likely her symptoms are related to IBS. As mentioned above, last upper endoscopy as well as colonoscopy were in 2014 and were unremarkable. Because of the ongoing epigastric pain, the possibility of an upper GI pathology cannot be excluded, though it is very unlikely. RECOMMENDATIONS: 1. Continue with clear liquid diet. 2. Continue with IV Protonix. 3. Will proceed with an upper endoscopy tomorrow. Since the colonoscopy a year ago was within normal limits, no need to proceed with any colonoscopic intervention at the present time. Also, continue with Bentyl 20 mg 4 times daily. We will follow her closely during her hospital stay. Thank you for this consultation.
[2016-04-11 15:03] VITALS: RESP 20
[2016-04-11] MEDS: ATORVASTATIN 20 MG TAB PO SCH (21:08)
--- NOTE | 2016-04-11 22:28 | PN ---
DATE OF SERVICE: 04/11/2016 This 45-year-old woman was admitted with abdominal pain, scheduled for EGD by Dr. Dey today. Dr. Dey is recommending no colonoscopy ( ) most recent colonoscopy. There is no history of fevers or rigors. No history of headache or loss of consciousness. The patient had diffuse abdominal pain. The possibility of irritable bowel syndrome is also considered. On exam, alert, oriented x3. Pulse 77, blood pressure 130/70, respirations 18, temperature 98.4, pulse ox 94% on room air. HEENT: Conjunctivae normal. NECK: Supple. CARDIOVASCULAR: S1 and S2 muffled. LUNGS: Breath sounds diminished at the bases. No rhonchi, no crackles. ABDOMEN: Soft. Mild diffuse discomfort. No guarding, rigidity, tenderness. EXTREMITIES: Legs no edema. NERVOUS SYSTEM: No focal deficits. LABS: WBC is 8, hemoglobin 10.9. UA noted. Influenza A is negative. ASSESSMENT: 1. Abdominal pain for evaluation, possible acute gastritis, rule out peptic ulcer disease. 2. Increased WBC, reactive. 3. Possible irritable bowel syndrome. 4. Increased platelets. 5. Hyponatremia. 6. History of gastroesophageal reflux disease. 7. Hyperlipidemia. 8. History of rheumatoid arthritis. 9. History of polysubstance abuse. 10. History of Clostridium difficile colitis. 11. History of degenerative joint disease. 12. History of bipolar disorder. 13. Remote history of nicotine dependence. RECOMMENDATIONS: Recommend to continue current medications, continue with monitoring and symptomatic treatment. Otherwise at this time EGD per Dr. Dey. Advance soft diet. Dietary consultation. Guarded prognosis because of multiple complex medical issues. Further recommendations to follow.
[2016-04-12] MEDS: SODIUM CHLORIDE 0.9% 1,000 ML IV SCH ×2 (06:32→16:04)
[2016-04-12] MEDS: METOCLOPRAMIDE 5 MG TAB PO SCH ×3 (07:52→16:16)
[2016-04-12] MEDS: PANTOPRAZOLE 40 MG TABLET PO SCH (07:52)
[2016-04-12] MEDS: DICYCLOMINE 20 MG TAB PO SCH ×2 (07:53→13:15)
[2016-04-12 09:18] VITALS: BP 124/74; PULSE 88; TEMP 97.7
[2016-04-12 09:23] LABS: Basophils # (A) 0.1 k/uL (0-0.2); Basophils % (A) 1 %; CH 33.7; CHCM 34.3; Eosinophils # (A) 0.3 k/uL (0-0.7); Eosinophils % (A) 4 %; HCT 32.3 % (34.0-46.0); HDW 2.66; HGB 10.7 gm/dL (11.4-16.0); Luc # (Auto) 0.17; Luc % (Auto) 3; Lymphocytes # (A) 2.1 k/uL (1.0-4.8); Lymphocytes % (A) 31 %; MCH 32.7 pg (25.0-35.0); MCHC 33.2 g/dL (31.0-37.0); MCV 98.6 fL (80.0-100.0); Mean Platelet Volume 6.6; Monocytes # (A) 0.6 k/uL (0-1.0); Monocytes % (A) 8 %; Neutrophils # (A) 3.6 k/uL (1.3-7.7); Neutrophils % (A) 53 %; RBC 3.28 m/uL (3.80-5.40); WBC 6.8 k/uL (3.8-10.6); WBC (Perox) 7.18
[2016-04-12 09:51] LABS: Anion Gap 8 mmol/L; Blood Urea Nitrogen 4 mg/dL (7-17); Calcium 9.1 mg/dL (8.4-10.2); Carbon Dioxide 23 mmol/L (22-30); Chloride 112 mmol/L (98-107); Glucose 89 mg/dL (74-99); Non-African American GFR(MDRD) >60 (>60 ml/min/1.73 sqM); Potassium 3.9 mmol/L (3.5-5.1); Sodium 143 mmol/L (137-145)
[2016-04-12] MEDS: GABAPENTIN 300 MG CAP PO SCH ×2 (10:01→16:16)
[2016-04-12] MEDS: LORATADINE 10 MG TAB PO SCH (10:02)
[2016-04-12] MEDS ORDERED: IV FLUID CONTINUATION 1,000 ML IV ONE (11:16)
[2016-04-12] MEDS ORDERED: PROPOFOL 10 MG/ML 20 ML VIAL IV ONE (11:29)
[2016-04-12] MEDS ORDERED: MIDAZOLAM 2 MG/2 ML VIAL ONE (11:29)
--- NOTE | 2016-04-12 11:32 | P.PCN ---
Date of Procedure: 04/12/16 Procedure(s) Performed: BRIEF HISTORY: Patient is a 45-year-old, pleasant, white female, scheduled for an upper endoscopy as a part of evaluation of chronic persistent nausea vomiting for the last several days duration. PROCEDURE PERFORMED: Esophagogastroduodenoscopy. PREOPERATIVE DIAGNOSIS: Chronic persistent nausea and vomiting. IV sedation per anesthesia. PROCEDURE: After informed consent was obtained, the patient was brought into the endoscopy unit. IV conscious sedation was administered by Anesthesia under continuous monitoring. Initially the Olympus GIF-140 video endoscope was inserted into the mouth. Esophagus intubated without any difficulty. It was gradually advanced into the stomach and duodenum and carefully examined. The bulb and the second part of the duodenum appeared normal. The scope at this time was withdrawn to the stomach, adequately insufflated with air, and upon careful examination, mucosa of the antrum, had mild gastritis and biopsies were done from this area. The body, cardia and the fundus appeared normal. The scope was then withdrawn into the esophagus. The GE junction was located at 39 cm from the incisors. The esophagus appeared normal. There were no erosions or ulcerations seen and the patient tolerated the procedure well. IMPRESSION: 1. Mild antral gastritis. 2. No evidence of esophagitis or peptic ulcer disease. RECOMMENDATIONS: The findings of this examination were discussed with the patient. She was advised to follow with the biopsy results. Her diet will be advanced as tolerated.
[2016-04-12] MEDS: POTASSIUM CHLORIDE 10 MEQ, LIDOCAINE 2% INJ 10 MG in SODIUM CHLORIDE 0.9% 100 ML IVPB SCH ×2 (11:52→13:14)
[2016-04-12] MEDS: ENOXAPARIN 40 MG/0.4 ML SYRINGE SQ SCH (11:52)
[2016-04-12] MEDS: traMADol 50 MG TAB PO PRN (13:06)
--- NOTE | 2016-04-13 09:40 | DS ---
DATE OF ADMISSION: 04/09/2016 DATE OF DISCHARGE: 04/12/2016 FINAL DIAGNOSES: 1. Abdominal pain, possibly acute gastritis, status post EGD. 2. No evidence of peptic ulcer disease. 3. Increased WBC reactive. 4. Possible irritable bowel syndrome. 5. Increased platelets. 6. Hyponatremia. 7. History gastroesophageal reflux disease. 8. Hyperlipidemia. 9. History of rheumatoid arthritis. 10. History of polysubstance abuse. 11. History of Clostridium difficile colitis. 12. History of degenerative joint disease. 13. History of bipolar disorder. 14. History of nicotine dependence. DISCHARGE DISPOSITION: The patient will be discharged in stable condition with guarded prognosis. cleared the patient for discharge. HISTORY OF PRESENT ILLNESS: This is a 45-year-old woman with the past medical history of multiple medical problems as mentioned earlier, being followed by Dr. Antonia Grimes in the outpatient setting was admitted with abdominal pain and vomiting and some diarrhea. The patient was treated symptomatically, improved significantly. EGD showed antral gastritis. Dr. Dey saw the patient. Outpatient follow up is diet with modification . On exam, vitals are stable. CARDIOVASCULAR SYSTEM: S1, S2, muffled. ABDOMEN: Soft. NERVOUS SYSTEM: No focal deficits. Discharge advice: 1. Diet is cardiac. 2. Activity limited until followup. 3. Follow up with Dr. Antonia Grimes in 2 to 3 days. 4. Follow up with Dr. Dey as advised. 5. Follow up with Dr. Ulises Martinez as advised for pain management. Medications are: 1. Khmqfok-fmacnlnxsohws-yzoxfhvi p.r.n. for migraine headaches. 2. Bentyl 20 mg q.i.d. 3. Gabapentin 600 mg p.o. t.i.d. 4. Claritin 10 mg p.o. daily. 5. Antivert 12.5 q.6 p.r.n. 6. Robaxin 750 mg p.o. b.i.d. p.r.n. 7. Reglan 5 mg a.c. t.i.d. 8. Protonix 40 mg p.o. b.i.d. 9. Zofran 40 mg q.h.s. 10. Ultram 50 mg q.8 p.r.n. On again, the patient will be discharged in a stable condition with guarded prognosis. [facility]
== END 2016-04-12 16:34 | disposition home or self-care (01) ==
LOC: EC 04:38 → 4MS4W 04:46
PROVIDERS: ADMIT Internal Medicine; ATTEND Internal Medicine
DX: K52.9 Noninfective gastroenteritis and colitis, unspecified (principal); E78.5 Hyperlipidemia, unspecified; E87.1 Hypo-osmolality and hyponatremia; F11.20 Opioid dependence, uncomplicated; F17.200 Nicotine dependence, unspecified, uncomplicated; F31.9 Bipolar disorder, unspecified; K21.9 Gastro-esophageal reflux disease without esophagitis; K29.60 Other gastritis without bleeding; K57.30 Diverticulosis of large intestine without perforation or abscess without bleeding; Z86.19 Personal history of other infectious and parasitic diseases; Z76.5 Malingerer [conscious simulation]; Z79.899 Other long term (current) drug therapy; Z88.0 Allergy status to penicillin; Z88.8 Allergy status to other drugs, medicaments and biological substances; Z88.1 Allergy status to other antibiotic agents; Z88.3 Allergy status to other anti-infective agents; Z91.041 Radiographic dye allergy status
CPT/HCPCS: 99285 ×2; 96374 ×2; 96375 ×2; 96361 ×2; 36415; 94760; 93005; 88305; 80053; 80048 ×2; 82550; 82553; 83605; 83735; 84100; 85025 ×3; 81001; 88342; 87086; 87502; 74022; 43239; G0378 ×4; J2001; J2250; J2270; J2405; J3480; J1650 ×4; J0131; J2704; C9113; 96372; 96376

== ENCOUNTER 2016-04-16 08:08 | Emergency (ER) | payer OTHER ==
[2016-04-16] MEDS ORDERED: IPRATROPIUM-ALBUTEROL 3 ML NEB INHALATION STA (08:54)
--- NOTE | 2016-04-16 09:01 | ED ---
General Adult HPI - General Chief complaint: Shortness of Breath Stated complaint: alysha Time Seen by Provider: 04/16/16 08:46 Source: EMS, RN notes reviewed Mode of arrival: EMS Limitations: no limitations - History of Present Illness Initial comments: Patient 45-year-old female who presents emergency room today with a chief complaint of cough congestion over the last few days. She does admit that she' s had some right ear pain. She states she is worried about "bronchitis". She states that she was here in the hospital for another problem admitted and her roommate did have cough congestion. States that The room very cold. Patient does admit that she's had some cough congestion with some mild sputum production it's been yellow in color. She admits to some pain right side of her chest wall when she coughs. She denies any other complaints or symptoms. Patient denies any recent back pain, abdominal pain, nausea or vomiting, numbness or tingling, dysuria or hematuria, constipation or diarrhea, headaches or visual changes, or any other complaints. - Related Data Home Medications Medication Instructions Recorded Confirmed Pantoprazole Sodium 40 mg PO BID 12/13/13 04/09/16 Simvastatin [Zocor] 40 mg PO HS 10/04/14 04/09/16 Loratadine [Claritin] 10 mg PO DAILY 02/20/15 04/09/16 Methocarbamol [Robaxin] 750 mg PO BID PRN 02/20/15 04/09/16 Dicyclomine [Bentyl] 20 mg PO QID 07/07/15 04/09/16 [id number] 1 tab PO Q6HR PRN 01/16/16 04/09/16 [Excedrin] Gabapentin 600 mg PO TID 02/24/16 04/09/16 Meclizine [Antivert] 12.5 mg PO Q6H PRN 04/06/16 04/09/16 Previous Rx's Medication Instructions Recorded Metoclopramide [Reglan] 5 mg PO AC-TID #20 tab 04/12/16 traMADol HCL [Ultram] 50 mg PO Q8H PRN #20 tab 04/12/16 Albuterol Inhaler [Ventolin Hfa 1 - 2 puff INHALATION Q4-6H PRN #1 04/16/16 Inhaler] inhaler Azithromycin [Zithromax Z-pack] 0 mg PO DIRECTED #6 tab 04/16/16 Ibuprofen [Motrin] 600 mg PO Q6HR PRN #20 day 04/16/16 Ondansetron Odt [Zofran ODT] 4 mg PO Q8HR PRN #15 tab 04/16/16 Allergies Allergy/AdvReac Type Severity Reaction Status Date / Time Iodinated Contrast Media - Allergy Rash/Hives Verified 04/09/16 08:49 Oral and [Iodinated Contrast Media - IV Dye] metronidazole [From Flagyl] Allergy Unknown Verified 04/09/16 08:49 Penicillins Allergy Unknown Verified 04/09/16 08:49 aripiprazole [From Abilify] AdvReac Nausea & Verified 04/09/16 08:49 Vomiting cephalexin monohydrate AdvReac Nausea & Verified 04/09/16 08:49 [From Keflex] Vomiting ciprofloxacin [From Cipro] AdvReac Nausea & Verified 04/09/16 08:49 Vomiting Review of Systems ROS Statement: Those systems with pertinent positive or pertinent negative responses have been documented in the HPI. ROS Other: All systems not noted in ROS Statement are negative. Past Medical History Past Medical History: GERD/Reflux, Hyperlipidemia, Rheumatoid Arthritis (RA) Additional Past Medical History / Comment(s): Pt recently admitted to [facility] on with nausea, vomiting and epigastric pain. Other hx: substance abuse ( pills), ibs, colitis, gastritis, chronic back pain, DDD, sinus problems. substance abuse History of Any Multi-Drug Resistant Organisms: C-DIFF Date of last positivie culture/infection: 2011 MDRO Source:: stool Past Surgical History: Cholecystectomy, Hysterectomy, Joint Replacement, Orthopedic Surgery, Tonsillectomy, Tubal Ligation Additional Past Surgical History / Comment(s): right eye cataract, R shoulder arthroscopy with anchors placed then total R shoulder, right knee surgry for spurs, skin tags off back and L shoulder (benign). Past Anesthesia/Blood Transfusion Reactions: No Reported Reaction Past Psychological History: Bipolar Additional Psychological History / Comment(s): Pt states she has had increased depression lately r/t health issues. She denies suicidal thoughts or plans. She does not wich to be . She does not have any pychiatric care. She has paper work which she is having difficulty completing it is for "Adult services" . She resides alone and has a cat. 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 Smoking Status: Former smoker Past Alcohol Use History: None Reported Additional Past Alcohol Use History / Comment(s): Pt states she started smoking as a teen and quit yesterday 04/08/16. Past Drug Use History: None Reported Additional Drug Use History / Comment(s): Pt states she has hx of narcotic abuse but it was yrs ago. - Past Family History Mother Family Medical History: Cancer Father Family Medical History: No Reported History Additional Family Medical History / Comment(s): Father at age 57 with history of cerebral palsy Son(s) Additional Family Medical History / Comment(s): She has 2 sons with no major medical problems. She does not have any brothers or sisters. General Exam - General Exam Comments Initial Comments: General: The patient is awake and alert, in no distress, and does not appear acutely ill. Eye: Pupils are equal, round and reactive to light, extra-ocular movements are intact. No nystagmus. There is normal conjunctiva bilaterally. No signs of icterus. Ears, nose, mouth and throat: There are moist mucous membranes and no oral lesions. He does have increased redness erythema to the right ear canal with decreased bony landmarks. Left ear is clear. Neck: The neck is supple, there is no tenderness or JVD. Cardiovascular: There is a regular rate and rhythm. No murmur, rub or gallop is appreciated. Respiratory: Lungs are clear to auscultation, respirations are non-labored, breath sounds are equal. No wheezes, stridor, rales, or rhonchi. Gastrointestinal: Soft, non-distended, non-tender abdomen without masses or organomegaly noted. There is no rebound or guarding present. No CVA tenderness. Bowel sounds are unremarkable. Musculoskeletal: Normal ROM, no tenderness. Strength 5/5. Sensation intact. Pulses equal bilaterally 2+. Neurological: A&O x 3. CN II-XII intact, There are no obvious motor or sensory deficits. Coordination appears grossly intact. Speech is normal. Skin: Skin is warm and dry and no rashes or lesions are noted. Psychiatric: Cooperative, appropriate mood & affect, normal judgment. Limitations: no limitations Course Vital Signs 04/16/16 04/16/16 04/16/16 08:20 08:27 09:31 Temperature 100.8 F H Pulse Rate 88 80 Respiratory 18 18 Rate Blood Pressure 152/85 O2 Sat by Pulse 95 Oximetry Medical Decision Making - Medical Decision Making Patient advised most likely viral illness but will be covered with antibiotic of azithromycin for both her ear and upper respiratory symptoms. Patient given inhaler to go home with to use as needed. Advised follow-up the family doctor over the next 2 days or return here to emergency room if any symptoms increase or worsen or for any other concerns. Disposition Clinical Impression: Acute otitis media, Bronchitis Disposition: HOME SELF-CARE Condition: Good Instructions: Otitis Media (ED) Additional Instructions: Please use medication as discussed. Please follow-up with family doctor in the next 2 days of symptoms have not improved. Please return to emergency room if the symptoms increase or worsen or for any other concerns. Prescriptions: Albuterol Inhaler [Ventolin Hfa Inhaler] 1 - 2 puff INHALATION Q4-6H PRN #1 inhaler PRN Reason: Cough Azithromycin [Zithromax Z-pack] 0 mg PO DIRECTED #6 tab Ibuprofen [Motrin] 600 mg PO Q6HR PRN #20 day PRN Reason: Pain Ondansetron Odt [Zofran ODT] 4 mg PO Q8HR PRN #15 tab PRN Reason: Nausea Time of Disposition: 09:45
--- NOTE | 2016-04-16 09:14 | XR ---
EXAMINATION TYPE: XR chest 2V DATE OF EXAM: 04/16/2016 9:11 AM COMPARISON: Chest x-ray April 09, 2015 HISTORY: Cough TECHNIQUE: Frontal and lateral views of the chest are obtained. FINDINGS: There is no focal air space opacity, pleural effusion, or pneumothorax seen. The cardiac silhouette size is within normal limits. The osseous structures are somewhat demineralized. Metalli c hardware from right shoulder surgery is partially imaged. IMPRESSION: No suspicious acute infiltrate is present.
[2016-04-16] MEDS ORDERED: ONDANSETRON 4 MG/2 ML VIAL IVP STA (09:45)
[2016-04-16] MEDS ORDERED: IBUPROFEN 600 MG TAB PO STA (09:45)
[2016-04-16 09:51] VITALS: BP 142/72; PULSE 94; RESP 16; TEMP 100.9
== END 2016-04-16 10:00 | disposition home or self-care (01) ==
LOC: EC 08:08
DX: J40 Bronchitis, not specified as acute or chronic (principal); H66.91 Otitis media, unspecified, right ear; K21.9 Gastro-esophageal reflux disease without esophagitis; M19.90 Unspecified osteoarthritis, unspecified site; E78.5 Hyperlipidemia, unspecified; K58.9 Irritable bowel syndrome, unspecified; Z87.19 Personal history of other diseases of the digestive system; Z87.891 Personal history of nicotine dependence; Z79.899 Other long term (current) drug therapy; Z88.0 Allergy status to penicillin; Z88.1 Allergy status to other antibiotic agents; Z91.041 Radiographic dye allergy status; Z90.89 Acquired absence of other organs
CPT/HCPCS: 94640; 93005; 71020; 99285; 96374; J2405

== ENCOUNTER 2016-04-17 16:46 | Emergency (ER) | payer OTHER ==
[2016-04-17 16:55] VITALS: BP 112/69; RESP 20; TEMP 97.8
[2016-04-17] MEDS ORDERED: SODIUM CHLORIDE 0.9% 1,000 ML IV ONE (17:02)
[2016-04-17] MEDS ORDERED: methylPREDNISolone SOD SUCCI 125 MG/2 ML VIAL IV STA (17:02)
[2016-04-17] MEDS ORDERED: IPRATROPIUM-ALBUTEROL 3 ML NEB INHALATION STA ×2 (17:02→18:27)
--- NOTE | 2016-04-17 17:04 | ED ---
General Adult HPI - General Chief complaint: ENT Stated complaint: Flu like symtoms Time Seen by Provider: 04/17/16 16:49 Source: patient, EMS Mode of arrival: EMS Limitations: no limitations - History of Present Illness Initial comments: 45-year-old female presenting for cough and sinus congestion. States symptoms are going on for the past 3-4 days. She states nonproductive cough. Patient states she was seen yesterday for similar symptoms. She states she was sent home with a Z-Yordy and albuterol inhaler and this has not been helping her symptoms. She states "I need to stay couple nights in the hospital to get better." She denies any chest pain. She states she does have a distant history of smoking but is not an active smoker. She denies any COPD history. - Related Data Home Medications Medication Instructions Recorded Confirmed Pantoprazole Sodium 40 mg PO BID 12/13/13 04/17/16 Simvastatin [Zocor] 40 mg PO HS 10/04/14 04/17/16 Loratadine [Claritin] 10 mg PO DAILY 02/20/15 04/17/16 Methocarbamol [Robaxin] 750 mg PO BID PRN 02/20/15 04/17/16 Dicyclomine [Bentyl] 20 mg PO QID 07/07/15 04/17/16 [id number] 1 tab PO Q6HR PRN 01/16/16 04/17/16 [Excedrin] Gabapentin 600 mg PO TID 02/24/16 04/17/16 Meclizine [Antivert] 12.5 mg PO Q6H PRN 04/06/16 04/17/16 Albuterol Inhaler [Ventolin Hfa 1 - 2 puff INHALATION RT-Q4H PRN 04/17/16 Inhaler] Azithromycin [Zithromax Z-pack] See Taper PO DAILY 04/17/16 04/17/16 Previous Rx's Medication Instructions Recorded Metoclopramide [Reglan] 5 mg PO AC-TID #20 tab 04/12/16 traMADol HCL [Ultram] 50 mg PO Q8H PRN #20 tab 04/12/16 Ibuprofen [Motrin] 600 mg PO Q6HR PRN #20 day 04/16/16 Ondansetron Odt [Zofran ODT] 4 mg PO Q8HR PRN #15 tab 04/16/16 predniSONE 40 mg PO DAILY #10 tab 04/17/16 Allergies Allergy/AdvReac Type Severity Reaction Status Date / Time Iodinated Contrast Media - Allergy Rash/Hives Verified 04/17/16 16:54 Oral and [Iodinated Contrast Media - IV Dye] metronidazole [From Flagyl] Allergy Unknown Verified 04/17/16 16:54 Penicillins Allergy Unknown Verified 04/17/16 16:54 aripiprazole [From Abilify] AdvReac Nausea & Verified 04/17/16 16:54 Vomiting cephalexin monohydrate AdvReac Nausea & Verified 04/17/16 16:54 [From Keflex] Vomiting ciprofloxacin [From Cipro] AdvReac Nausea & Verified 04/17/16 16:54 Vomiting Review of Systems ROS Statement: Those systems with pertinent positive or pertinent negative responses have been documented in the HPI. ROS Other: All systems not noted in ROS Statement are negative. Past Medical History Past Medical History: GERD/Reflux, Hyperlipidemia, Rheumatoid Arthritis (RA) Additional Past Medical History / Comment(s): Pt recently admitted to [facility] on with nausea, vomiting and epigastric pain. Other hx: substance abuse ( pills), ibs, colitis, gastritis, chronic back pain, DDD, sinus problems. substance abuse History of Any Multi-Drug Resistant Organisms: C-DIFF Date of last positivie culture/infection: 2011 MDRO Source:: stool Past Surgical History: Cholecystectomy, Hysterectomy, Joint Replacement, Orthopedic Surgery, Tonsillectomy, Tubal Ligation Additional Past Surgical History / Comment(s): right eye cataract, R shoulder arthroscopy with anchors placed then total R shoulder, right knee surgry for spurs, skin tags off back and L shoulder (benign). Past Anesthesia/Blood Transfusion Reactions: No Reported Reaction Past Psychological History: Bipolar Additional Psychological History / Comment(s): Pt states she has had increased depression lately r/t health issues. She denies suicidal thoughts or plans. She does not wich to be . She does not have any pychiatric care. She has paper work which she is having difficulty completing it is for "Adult services" . She resides alone and has a cat. 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 Smoking Status: Former smoker Past Alcohol Use History: None Reported Additional Past Alcohol Use History / Comment(s): Pt states she started smoking as a teen and quit yesterday 04/08/16. Past Drug Use History: None Reported Additional Drug Use History / Comment(s): Pt states she has hx of narcotic abuse but it was yrs ago. - Past Family History Mother Family Medical History: Cancer Father Family Medical History: No Reported History Additional Family Medical History / Comment(s): Father at age 57 with history of cerebral palsy Son(s) Additional Family Medical History / Comment(s): She has 2 sons with no major medical problems. She does not have any brothers or sisters. General Exam - General Exam Comments Initial Comments: General: Awake and Alert. No acute distress. Does not appear acutely ill. Obese. Eyes: JANA, EOM intact. No nystagmus. No scleral icterus. HENT: Atraumatic, normocephalic. Mucous membranes moist. Trachea midline. Nasal turbinate erythema and edema with clear rhinorrhea. No posterior pharyngeal edema or erythema. No tonsillar edema. Neck: The neck is supple, there is no tenderness or JVD. Cardiovascular: Regular rate and rhythm. No murmur, rub, or gallop is appreciated. Distal pulses intact. Respiratory: Lungs are clear to auscultation bilaterally. Mild expiratory wheezes. No rales, rhonchi. No respiratory distress. Gastrointestinal: Soft, Nontender. No rebound or guarding. Non-distended. No masses or organomegaly noted. No CVA tenderness. Musculoskeletal: No tenderness. Normal ROM. No gross deformity. No strength deficits. Neurological: A&Ox3. CN II-XII grossly intact, There are no obvious motor or sensory deficits. Coordination appears grossly intact. Speech is normal. Skin: Skin is warm and dry and no rashes or lesions are noted. Psychiatric: Cooperative, appears anxious, normal judgment. Limitations: no limitations Course Vital Signs 04/17/16 04/17/16 04/17/16 16:48 17:26 17:32 Temperature 97.8 F Pulse Rate 101 H 88 90 Respiratory 20 Rate Blood Pressure 112/69 O2 Sat by Pulse 98 Oximetry EKG Findings - EKG Comments: EKG Findings:: EKG 17:24. Normal sinus rhythm. Rate 88. IN 142. QRS 80. QT/ QTc 354/428. Normal axis. No STEMI. Nonspecific T wave changes. Nonspecific EKG. Similar to prior EKG 04/16/2016. Medical Decision Making - Medical Decision Making 45-year-old female presenting for URI type symptoms. Patient seen yesterday for similar symptoms. She was febrile yesterday although she has no fever here today. Vitals are otherwise stable, she is mildly tachycardiac, IV fluids were given. She does not appear acutely septic. She is not hypoxic. Workup was performed which shows grossly stable lab work. Lactate negative. Chest x-ray today shows no acute findings. Influenza was negative. Patient was reevaluated, appears improved after breathing treatment. Patient started on Solu-Medrol in the ED plan to add Rx for prednisone over the next several days as well. There is likely some reactive airway component of her disease process. Otherwise she appears to have a URI. I encouraged her to continue taking her medications that were prescribed yesterday including Zithromax and albuterol. Discussed with the patient that she has not appear to require admission to the hospital at this time. She does not appear septic. Her lactic acid is negative. Her chest x-ray remains clear. I encouraged patient that the current therapies will likely help her get over her upper respiratory symptoms. I discussed concerning signs symptoms for immediate return to the ED. I discussed close follow-up with PCP. Patient is agreeable to plan of discharge home. - Lab Data Result diagrams: 04/17/16 17:35 04/17/16 17:35 Lab Results 04/17/16 04/17/16 04/17/16 Range/Units 17:35 17:35 17:35 WBC 12.7 H (3.8-10.6) k/uL RBC 3.79 L (3.80-5.40) m/uL Hgb 12.3 (11.4-16.0) gm/dL Hct 36.2 (34.0-46.0) % MCV 95.5 (80.0-100.0) fL MCH 32.4 (25.0-35.0) pg MCHC 33.9 (31.0-37.0) g/dL RDW 13.2 (11.5-15.5) % Plt Count 478 H (150-450) k/uL Neutrophils % 62 % Lymphocytes % 27 % Monocytes % 8 % Eosinophils % 0 % Basophils % 0 % Neutrophils # 7.9 H (1.3-7.7) k/uL Lymphocytes # 3.4 (1.0-4.8) k/uL Monocytes # 1.0 (0-1.0) k/uL Eosinophils # 0.1 (0-0.7) k/uL Basophils # 0.1 (0-0.2) k/uL Sodium 143 (137-145) mmol/L Potassium 3.5 (3.5-5.1) mmol/L Chloride 107 (98-107) mmol/L Carbon Dioxide 21 L (22-30) mmol/L Anion Gap 15 mmol/L BUN 13 (7-17) mg/dL Creatinine 0.97 (0.52-1.04) mg/dL Est GFR (MDRD) Af Amer >60 (>60 ml/min/1.73 sqM) Est GFR (MDRD) Non-Af >60 (>60 ml/min/1.73 sqM) Glucose 93 (74-99) mg/dL Plasma Lactic Acid Von 1.5 (0.7-2.0) mmol/L Calcium 10.0 (8.4-10.2) mg/dL Influenza Type A RNA (Not Detectd) Influenza Type B (PCR) (Not Detectd) 04/17/16 Range/Units 17:35 WBC (3.8-10.6) k/uL RBC (3.80-5.40) m/uL Hgb (11.4-16.0) gm/dL Hct (34.0-46.0) % MCV (80.0-100.0) fL MCH (25.0-35.0) pg MCHC (31.0-37.0) g/dL RDW (11.5-15.5) % Plt Count (150-450) k/uL Neutrophils % % Lymphocytes % % Monocytes % % Eosinophils % % Basophils % % Neutrophils # (1.3-7.7) k/uL Lymphocytes # (1.0-4.8) k/uL Monocytes # (0-1.0) k/uL Eosinophils # (0-0.7) k/uL Basophils # (0-0.2) k/uL Sodium (137-145) mmol/L Potassium (3.5-5.1) mmol/L Chloride (98-107) mmol/L Carbon Dioxide (22-30) mmol/L Anion Gap mmol/L BUN (7-17) mg/dL Creatinine (0.52-1.04) mg/dL Est GFR (MDRD) Af Amer (>60 ml/min/1.73 sqM) Est GFR (MDRD) Non-Af (>60 ml/min/1.73 sqM) Glucose (74-99) mg/dL Plasma Lactic Acid Von (0.7-2.0) mmol/L Calcium (8.4-10.2) mg/dL Influenza Type A RNA Not Detected (Not Detectd) Influenza Type B (PCR) Not Detected (Not Detectd) - EKG Data -: EKG Interpreted by [place] EKG shows normal: sinus rhythm Rate: normal When compared to previous EKG there are: no significant change Interpretation: no acute changes - Radiology Data Radiology results: report reviewed, image reviewed Disposition Clinical Impression: URI (upper respiratory infection), RAD (reactive airway disease), Cough Disposition: HOME SELF-CARE Condition: Stable Instructions: Upper Respiratory Infection (ED), Reactive Airways Disease (ED), Rhinosinusitis (ED) Prescriptions: predniSONE 40 mg PO DAILY #10 tab Referrals: Antonia Grimes MD [Primary Care Provider] - 1-2 days Time of Disposition: 18:33
[2016-04-17 17:33] VITALS: PULSE 90
--- NOTE | 2016-04-17 17:54 | XR ---
EXAMINATION TYPE: XR chest 2V DATE OF EXAM: 04/17/2016 5:51 PM COMPARISON: 04/16/2016 HISTORY: 2 views TECHNIQUE: Frontal and lateral views of the chest are obtained. FINDINGS: Heart and mediastinum are normal. Lungs are clear. Diaphragm is normal. Bony thorax is int act. There is a right shoulder prosthesis. IMPRESSION: No active cardiopulmonary disease. No change.
[2016-04-17 17:59] LABS: Basophils # (A) 0.1 k/uL (0-0.2); Basophils % (A) 0 %; CHCM 35.8; Eosinophils # (A) 0.1 k/uL (0-0.7); Eosinophils % (A) 0 %; HCT 36.2 % (34.0-46.0); HDW 2.91; HGB 12.3 gm/dL (11.4-16.0); Luc # (Auto) 0.31; Luc % (Auto) 2; Lymphocytes # (A) 3.4 k/uL (1.0-4.8); Lymphocytes % (A) 27 %; MCH 32.4 pg (25.0-35.0); MCHC 33.9 g/dL (31.0-37.0); MCV 95.5 fL (80.0-100.0); Mean Platelet Volume 6.8; Monocytes % (A) 8 %; Neutrophils # (A) 7.9 k/uL (1.3-7.7); Neutrophils % (A) 62 %; RBC 3.79 m/uL (3.80-5.40); RDW 13.2 % (11.5-15.5); WBC 12.7 k/uL (3.8-10.6); WBC (Perox) 13.37
[2016-04-17 18:11] LABS: Anion Gap 15 mmol/L; Blood Urea Nitrogen 13 mg/dL (7-17); Carbon Dioxide 21 mmol/L (22-30); Chloride 107 mmol/L (98-107); Glucose 93 mg/dL (74-99); Non-African American GFR(MDRD) >60 (>60 ml/min/1.73 sqM); Potassium 3.5 mmol/L (3.5-5.1); Sodium 143 mmol/L (137-145)
== END 2016-04-17 19:40 | disposition home or self-care (01) ==
LOC: EC 16:46
DX: J06.9 Acute upper respiratory infection, unspecified (principal); J45.909 Unspecified asthma, uncomplicated; M06.9 Rheumatoid arthritis, unspecified; K21.9 Gastro-esophageal reflux disease without esophagitis; E78.5 Hyperlipidemia, unspecified; Z87.891 Personal history of nicotine dependence; Z79.899 Other long term (current) drug therapy; Z79.82 Long term (current) use of aspirin; Z88.0 Allergy status to penicillin; Z88.8 Allergy status to other drugs, medicaments and biological substances; Z91.041 Radiographic dye allergy status
CPT/HCPCS: 36415; 94640 ×2; 93005; 80048; 83605; 85025; 87502; 71020; 99284; 96374; 96361; J2930

== ENCOUNTER 2016-04-19 04:55 | Emergency (ER) | payer OTHER ==
[2016-04-19] MEDS ORDERED: SODIUM CHLORIDE 0.9% 1,000 ML IV STA ×2 (05:00)
--- NOTE | 2016-04-19 05:03 | ED ---
General Adult HPI - General Source: patient, EMS, RN notes reviewed, old records reviewed Mode of arrival: EMS <Misha Santos - Last Filed: 04/19/16 06:44> <Eduar Rivera - Last Filed: 04/19/16 08:31> - General Stated complaint: poss c-diff Time Seen by Provider: 04/19/16 04:55 - History of Present Illness Initial comments: This is a 45-year-old female who is here for third visit in 3 days today complaining of possible C. diff. She states she's had twice in the past she complains of having diarrhea 4 since last night she states it has a followed are she denies any abdominal pain she does states she had some blood when she wiped the last time. She does have a history of hemorrhoids. She was diagnosed with a upper respiratory infection viral in nature. She currently denies any shortness of breath fevers chills or sweats. (Misha Santos) - Related Data Home Medications Medication Instructions Recorded Confirmed Pantoprazole Sodium 40 mg PO BID 12/13/13 04/19/16 Simvastatin [Zocor] 40 mg PO HS 10/04/14 04/19/16 Loratadine [Claritin] 10 mg PO DAILY PRN 02/20/15 04/19/16 Methocarbamol [Robaxin] 750 mg PO BID PRN 02/20/15 04/19/16 Dicyclomine [Bentyl] 20 mg PO QID 07/07/15 04/19/16 [id number] 1 tab PO Q6HR PRN 01/16/16 04/19/16 [Excedrin] Gabapentin 600 mg PO TID 02/24/16 04/19/16 Meclizine [Antivert] 12.5 mg PO Q6H PRN 04/06/16 04/19/16 Albuterol Inhaler [Ventolin Hfa 1 - 2 puff INHALATION RT-Q4H PRN 04/17/16 Inhaler] Azithromycin [Zithromax Z-pack] See Taper PO DAILY 04/17/16 04/19/16 Famotidine [Pepcid] 20 mg PO BID 04/19/16 04/19/16 Propranolol HCl [Inderal] 60 mg PO BID 04/19/16 04/19/16 Sucralfate [Carafate] 1 gm PO TID PRN 04/19/16 04/19/16 Previous Rx's Medication Instructions Recorded Metoclopramide [Reglan] 5 mg PO AC-TID #20 tab 04/12/16 traMADol HCL [Ultram] 50 mg PO Q8H PRN #20 tab 04/12/16 Ibuprofen [Motrin] 600 mg PO Q6HR PRN #20 day 04/16/16 Ondansetron Odt [Zofran ODT] 4 mg PO Q8HR PRN #15 tab 04/16/16 predniSONE 40 mg PO DAILY #10 tab 04/17/16 Potassium Chloride ER [K-Dur 20] 20 meq PO BID #5 tab 04/19/16 Allergies Allergy/AdvReac Type Severity Reaction Status Date / Time Iodinated Contrast Media - Allergy Rash/Hives Verified 04/19/16 07:18 Oral and [Iodinated Contrast Media - IV Dye] metronidazole [From Flagyl] Allergy Unknown Verified 04/19/16 07:18 Penicillins Allergy Unknown Verified 04/19/16 07:18 aripiprazole [From Abilify] AdvReac Nausea & Verified 04/19/16 07:18 Vomiting cephalexin monohydrate AdvReac Nausea & Verified 04/19/16 07:18 [From Keflex] Vomiting ciprofloxacin [From Cipro] AdvReac Nausea & Verified 04/19/16 07:18 Vomiting Review of Systems ROS Other: All systems not noted in ROS Statement are negative. <Misha Santos - Last Filed: 04/19/16 06:44> ROS Other: All systems not noted in ROS Statement are negative. <Eduar Rivera - Last Filed: 04/19/16 08:31> ROS Statement: Those systems with pertinent positive or pertinent negative responses have been documented in the HPI. Past Medical History Past Medical History: GERD/Reflux, Hyperlipidemia, Rheumatoid Arthritis (RA) Additional Past Medical History / Comment(s): Pt recently admitted to [facility] on with nausea, vomiting and epigastric pain. Other hx: substance abuse ( pills), ibs, colitis, gastritis, chronic back pain, DDD, sinus problems. substance abuse History of Any Multi-Drug Resistant Organisms: C-DIFF Date of last positivie culture/infection: 2011 MDRO Source:: stool Past Surgical History: Cholecystectomy, Hysterectomy, Joint Replacement, Orthopedic Surgery, Tonsillectomy, Tubal Ligation Additional Past Surgical History / Comment(s): right eye cataract, R shoulder arthroscopy with anchors placed then total R shoulder, right knee surgry for spurs, skin tags off back and L shoulder (benign). Past Anesthesia/Blood Transfusion Reactions: No Reported Reaction Past Psychological History: Bipolar Additional Psychological History / Comment(s): Pt states she has had increased depression lately r/t health issues. She denies suicidal thoughts or plans. She does not wich to be . She does not have any pychiatric care. She has paper work which she is having difficulty completing it is for "Adult services" . She resides alone and has a cat. 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 Smoking Status: Former smoker Past Alcohol Use History: None Reported Additional Past Alcohol Use History / Comment(s): Pt states she started smoking as a teen and quit yesterday 04/08/16. Past Drug Use History: None Reported Additional Drug Use History / Comment(s): Pt states she has hx of narcotic abuse but it was yrs ago. - Past Family History Mother Family Medical History: Cancer Father Family Medical History: No Reported History Additional Family Medical History / Comment(s): Father at age 57 with history of cerebral palsy Son(s) Additional Family Medical History / Comment(s): She has 2 sons with no major medical problems. She does not have any brothers or sisters. <Mihsa Santos - Last Filed: 04/19/16 06:44> General Exam General appearance: alert, in no apparent distress Head exam: Present: atraumatic, normocephalic, normal inspection Eye exam: Present: normal appearance, PERRL, EOMI. Absent: scleral icterus, conjunctival injection, periorbital swelling ENT exam: Present: mucous membranes dry Neck exam: Present: normal inspection. Absent: tenderness, meningismus, lymphadenopathy Respiratory exam: Present: normal lung sounds bilaterally. Absent: respiratory distress, wheezes, rales, rhonchi, stridor Cardiovascular Exam: Present: regular rate, normal rhythm, normal heart sounds. Absent: systolic murmur, diastolic murmur, rubs, gallop, clicks GI/Abdominal exam: Present: soft, normal bowel sounds. Absent: distended, tenderness, guarding, rebound, rigid Rectal exam: Present: normal inspection, normal rectal tone, other (Dark green colored stool no masses this was done with a female nurse present) Extremities exam: Present: normal inspection, full ROM, normal capillary refill. Absent: tenderness, pedal edema, joint swelling, calf tenderness Back exam: Present: normal inspection Neurological exam: Present: alert, oriented X3, CN II-XII intact Psychiatric exam: Present: normal affect, normal mood Skin exam: Present: warm, dry, intact, normal color. Absent: rash <Misha Santos - Last Filed: 04/19/16 06:44> <Eduar Rivera - Last Filed: 04/19/16 08:31> - General Exam Comments Initial Comments: This is a well-developed well-nourished awake alert oriented history female she is very anxious (Misha Santos) Course <Misha Santos - Last Filed: 04/19/16 06:44> <Eduar Rivera - Last Filed: 04/19/16 08:31> Vital Signs 04/19/16 04/19/16 05:33 07:54 Temperature 98.4 F Pulse Rate 90 80 Respiratory 14 14 Rate Blood Pressure 148/85 139/78 O2 Sat by Pulse 97 98 Oximetry - Reevaluation(s) Reevaluation #1: 04/19/16 06:44 The patient will be endorsed to Dr. Rivera at our shift change. He will make the final disposition. (Misha Santos) Medical Decision Making - Lab Data Result diagrams: 04/19/16 05:50 04/19/16 05:50 - Radiology Data Radiology results: report reviewed (I did review the x-ray report nonspecific findings.), image reviewed <Misha Santos - Last Filed: 04/19/16 06:44> - Lab Data Result diagrams: 04/19/16 05:50 04/19/16 05:50 - Radiology Data Radiology results: image reviewed (KUB shows nonobstructive bowel gas pattern.) <Eduar Rivera - Last Filed: 04/19/16 08:31> - Medical Decision Making Patient reevaluated by myself, Dr. Miguel Hughes patient resting comfortably in bed. Abdomen is soft and nontender. Patient updated on results and need for close follow-up as well as need for repeat potassium check this week. Patient comfortable with discharge home. (Eduar Rivera) - Lab Data Lab Results 04/19/16 04/19/16 04/19/16 Range/Units 05:35 05:50 05:50 WBC 11.8 H (3.8-10.6) k/uL RBC 3.78 L (3.80-5.40) m/uL Hgb 12.2 (11.4-16.0) gm/dL Hct 36.6 (34.0-46.0) % MCV 96.6 (80.0-100.0) fL MCH 32.2 (25.0-35.0) pg MCHC 33.3 (31.0-37.0) g/dL RDW 13.3 (11.5-15.5) % Plt Count 464 H (150-450) k/uL Neutrophils % 50 % Lymphocytes % 38 % Monocytes % 8 % Eosinophils % 0 % Basophils % 1 % Neutrophils # 5.9 (1.3-7.7) k/uL Lymphocytes # 4.5 (1.0-4.8) k/uL Monocytes # 1.0 (0-1.0) k/uL Eosinophils # 0.0 (0-0.7) k/uL Basophils # 0.1 (0-0.2) k/uL Sodium 146 H (137-145) mmol/L Potassium 2.9 L* (3.5-5.1) mmol/L Chloride 112 H (98-107) mmol/L Carbon Dioxide 20 L (22-30) mmol/L Anion Gap 14 mmol/L BUN 10 (7-17) mg/dL Creatinine 1.13 H (0.52-1.04) mg/dL Est GFR (MDRD) Af Amer >60 (>60 ml/min/1.73 sqM) Est GFR (MDRD) Non-Af 52 (>60 ml/min/1.73 sqM) Glucose 116 H (74-99) mg/dL Calcium 9.8 (8.4-10.2) mg/dL Magnesium (1.6-2.3) mg/dL Total Bilirubin 0.4 (0.2-1.3) mg/dL AST 26 (14-36) U/L ALT 44 (9-52) U/L Alkaline Phosphatase 91 (38-126) U/L Total Protein 7.2 (6.3-8.2) g/dL Albumin 4.1 (3.5-5.0) g/dL Amylase 34 (30-110) U/L Lipase 141 (23-300) U/L Urine Color Urine Appearance (Clear) Urine pH (5.0-8.0) Ur Specific [place] (1.001-1.035) Urine Protein (Negative) Urine Glucose (UA) (Negative) Urine Ketones (Negative) Urine Blood (Negative) Urine Nitrate (Negative) Urine Bilirubin (Negative) Urine Urobilinogen (<2.0) mg/dL Ur Leukocyte Esterase (Negative) Urine RBC (0-5) /hpf Urine WBC (0-5) /hpf Ur Squamous Epith Cells (0-4) /hpf Hyaline Casts (0-2) /lpf Urine Mucus (None) /hpf Stool Occult Blood Negative (Negative) C. difficile (EIA) Intrp (Negative) 04/19/16 04/19/16 04/19/16 Range/Units 05:50 05:50 05:50 WBC (3.8-10.6) k/uL RBC (3.80-5.40) m/uL Hgb (11.4-16.0) gm/dL Hct (34.0-46.0) % MCV (80.0-100.0) fL MCH (25.0-35.0) pg MCHC (31.0-37.0) g/dL RDW (11.5-15.5) % Plt Count (150-450) k/uL Neutrophils % % Lymphocytes % % Monocytes % % Eosinophils % % Basophils % % Neutrophils # (1.3-7.7) k/uL Lymphocytes # (1.0-4.8) k/uL Monocytes # (0-1.0) k/uL Eosinophils # (0-0.7) k/uL Basophils # (0-0.2) k/uL Sodium (137-145) mmol/L Potassium (3.5-5.1) mmol/L Chloride (98-107) mmol/L Carbon Dioxide (22-30) mmol/L Anion Gap mmol/L BUN (7-17) mg/dL Creatinine (0.52-1.04) mg/dL Est GFR (MDRD) Af Amer (>60 ml/min/1.73 sqM) Est GFR (MDRD) Non-Af (>60 ml/min/1.73 sqM) Glucose (74-99) mg/dL Calcium (8.4-10.2) mg/dL Magnesium 1.8 (1.6-2.3) mg/dL Total Bilirubin (0.2-1.3) mg/dL AST (14-36) U/L ALT (9-52) U/L Alkaline Phosphatase (38-126) U/L Total Protein (6.3-8.2) g/dL Albumin (3.5-5.0) g/dL Amylase (30-110) U/L Lipase (23-300) U/L Urine Color Yellow Urine Appearance Clear (Clear) Urine pH 6.5 (5.0-8.0) Ur Specific [place] 1.034 (1.001-1.035) Urine Protein 3+ H (Negative) Urine Glucose (UA) Negative (Negative) Urine Ketones Negative (Negative) Urine Blood Moderate H (Negative) Urine Nitrate Negative (Negative) Urine Bilirubin Negative (Negative) Urine Urobilinogen 2.0 (<2.0) mg/dL Ur Leukocyte Esterase Negative (Negative) Urine RBC 66 H (0-5) /hpf Urine WBC 2 (0-5) /hpf Ur Squamous Epith Cells 1 (0-4) /hpf Hyaline Casts 2 (0-2) /lpf Urine Mucus Few H (None) /hpf Stool Occult Blood (Negative) C. difficile (EIA) Intrp Negative (Negative) Disposition <Misha Santos - Last Filed: 04/19/16 06:44> <Eduar Rivera - Last Filed: 04/19/16 08:31> Clinical Impression: Diarrhea, Hypokalemia Disposition: HOME SELF-CARE Condition: Stable Instructions: Acute Diarrhea (ED), Hypokalemia (ED) Additional Instructions: Please follow-up with your primary care physician in the next day or 2. He will need to have your potassium level rechecked in approximately 2 days. Return for uncontrolled diarrhea, fever, uncontrolled pain, uncontrolled vomiting, worsening symptoms or other concerns. Prescriptions: Potassium Chloride ER [K-Dur 20] 20 meq PO BID #5 tab Referrals: Antonia Grimes MD [Primary Care Provider] - 1-2 days
[2016-04-19 05:59] LABS: Basophils # (A) 0.1 k/uL (0-0.2); Basophils % (A) 1 %; CH 33.6; Eosinophils % (A) 0 %; HCT 36.6 % (34.0-46.0); HDW 3.06; HGB 12.2 gm/dL (11.4-16.0); Luc # (Auto) 0.37; Luc % (Auto) 3; Lymphocytes # (A) 4.5 k/uL (1.0-4.8); Lymphocytes % (A) 38 %; MCH 32.2 pg (25.0-35.0); MCHC 33.3 g/dL (31.0-37.0); MCV 96.6 fL (80.0-100.0); Mean Platelet Volume 6.6; Monocytes % (A) 8 %; Neutrophils # (A) 5.9 k/uL (1.3-7.7); Neutrophils % (A) 50 %; RBC 3.78 m/uL (3.80-5.40); RDW 13.3 % (11.5-15.5); WBC 11.8 k/uL (3.8-10.6); WBC (Perox) 11.95
[2016-04-19 06:08] LABS: ALT 44 U/L (9-52); AST 26 U/L (14-36); Alkaline Phosphatase 91 U/L (38-126); Amylase 34 U/L (30-110); Anion Gap 14 mmol/L; Blood Urea Nitrogen 10 mg/dL (7-17); Calcium 9.8 mg/dL (8.4-10.2); Carbon Dioxide 20 mmol/L (22-30); Chloride 112 mmol/L (98-107); Glucose 116 mg/dL (74-99); Non-African American GFR(MDRD) 52 (>60 ml/min/1.73 sqM); Sodium 146 mmol/L (137-145); Total Bilirubin 0.4 mg/dL (0.2-1.3); Total Protein 7.2 g/dL (6.3-8.2)
[2016-04-19 06:09] LABS: Potassium 2.9 mmol/L (3.5-5.1)
--- NOTE | 2016-04-19 06:11 | XR ---
EXAMINATION TYPE: XR KUB DATE OF EXAM: 04/19/2016 5:58 AM CLINICAL HISTORY: Abdominal pain. TECHNIQUE: Single upright KUB image of the abdomen is obtained. COMPARISON: 04/09/2016 FINDINGS: Scattered gas is seen in non-distended small bowel loops. Gas and fecal material is seen in non-distended colon. There is no visceromegaly, pneumoperitoneum, or abnormal calcification appr eciated. The lung bases are clear and the osseous structures are intact. Tubal ligation changes are noted in the pelvis. Cholecystectomy changes are present in the right upper abdomen. IMPRESSION: Overall nonobstructive bowel gas pattern.
[2016-04-19] MEDS ORDERED: POTASSIUM CHLORIDE 20 MEQ, LIDOCAINE 2% INJ 20 MG in SODIUM CHLORIDE 0.9% 100 ML IVPB ONE (07:00)
[2016-04-19 07:10] LABS: Appearance,Urine Clear (Clear); Bilirubin,Urine Negative (Negative); Glucose,Urine (UA) Negative (Negative); Ketones,Urine Negative (Negative); Leukocyte Esterase,Urine Negative (Negative); Mucus,Urine Few /hpf; Nitrite,Urine Negative (Negative); PH, Urine 6.5 (5.0-8.0); Particle Count 14764; Protein,Urine 3+ (Negative); RBC,Urine 66 /hpf (0-5); Specific Gravity,Urine 1.034 (1.001-1.035); Squamous Epithelial Cell,Urine 1 /hpf (0-4); UA Billing (MACRO vs. MICRO) MICRO; WBC,Urine 2 /hpf (0-5)
[2016-04-19] MEDS ORDERED: POTASSIUM CHLORIDE ER 20 MEQ TAB.ER PO STA (07:25)
[2016-04-19 09:26] VITALS: BP 130/75; PULSE 76; RESP 16; TEMP 99.1
== END 2016-04-19 09:28 | disposition home or self-care (01) ==
LOC: EC 04:55
DX: R19.7 Diarrhea, unspecified (principal); E87.6 Hypokalemia; E78.5 Hyperlipidemia, unspecified; M06.9 Rheumatoid arthritis, unspecified; K21.9 Gastro-esophageal reflux disease without esophagitis; K58.9 Irritable bowel syndrome, unspecified; Z87.891 Personal history of nicotine dependence; Z88.0 Allergy status to penicillin; Z91.041 Radiographic dye allergy status; Z88.1 Allergy status to other antibiotic agents; Z79.899 Other long term (current) drug therapy; Z79.52 Long term (current) use of systemic steroids; Z86.19 Personal history of other infectious and parasitic diseases
CPT/HCPCS: 99284; 96365; 96366; 96361; 36415; 80053; 82150; 83690; 83735; 85025; 82272; 81001; 80299; 74000; J2001; J3480; 87324

== ENCOUNTER 2016-05-03 13:37 | Emergency (ER) | payer OTHER ==
[2016-05-03 13:47] VITALS: BP 125/76; PULSE 78; RESP 20; TEMP 97.5
--- NOTE | 2016-05-03 14:17 | ED ---
General Adult HPI - General Chief complaint: Fall Stated complaint: Fall/right shoulder & arm pain Time Seen by Provider: 05/03/16 14:00 Source: patient, RN notes reviewed Mode of arrival: ambulatory Limitations: no limitations - History of Present Illness Initial comments: Patient for 45-year-old female who presents emergency room today with chief complaint of injury to the right hand and shoulder that occurred due to a fall that occurred just prior to arrival. Patient does admit to a fall slipping in the mud falling down to the right arm. Admits to pain to the right hand. Admits to pain to the right shoulder. States she's worried about possible infiltrate her right shoulder she had surgery. Patient denies any other complaints or symptoms currently. Patient denies any recent fever, chills, shortness of breath, chest pain, back pain, abdominal pain, nausea or vomiting, numbness or tingling, dysuria or hematuria, constipation or diarrhea, headaches or visual changes, or any other complaints. - Related Data Home Medications Medication Instructions Recorded Confirmed Pantoprazole Sodium 40 mg PO BID 12/13/13 05/03/16 Simvastatin [Zocor] 40 mg PO HS 10/04/14 05/03/16 Loratadine [Claritin] 10 mg PO DAILY PRN 02/20/15 05/03/16 Methocarbamol [Robaxin] 750 mg PO BID PRN 02/20/15 05/03/16 Dicyclomine [Bentyl] 20 mg PO QID 07/07/15 05/03/16 [id number] 1 tab PO Q6HR PRN 01/16/16 05/03/16 [Excedrin] Gabapentin 600 mg PO TID 02/24/16 05/03/16 Meclizine [Antivert] 12.5 mg PO Q6H PRN 04/06/16 05/03/16 Albuterol Inhaler [Ventolin Hfa 1 - 2 puff INHALATION RT-Q4H PRN 04/17/16 Inhaler] Azithromycin [Zithromax Z-pack] See Taper PO DAILY 04/17/16 05/03/16 Famotidine [Pepcid] 20 mg PO BID 04/19/16 05/03/16 Propranolol HCl [Inderal] 60 mg PO BID 04/19/16 05/03/16 Sucralfate [Carafate] 1 gm PO TID PRN 04/19/16 05/03/16 Previous Rx's Medication Instructions Recorded Acetaminophen Tab [Tylenol] 1,000 mg PO TID 5 Days 05/03/16 Allergies Allergy/AdvReac Type Severity Reaction Status Date / Time Iodinated Contrast Media - Allergy Rash/Hives Verified 05/03/16 14:01 Oral and [Iodinated Contrast Media - IV Dye] metronidazole [From Flagyl] Allergy Unknown Verified 05/03/16 14:01 Penicillins Allergy Unknown Verified 05/03/16 14:01 aripiprazole [From Abilify] AdvReac Nausea & Verified 05/03/16 14:01 Vomiting cephalexin monohydrate AdvReac Nausea & Verified 05/03/16 14:01 [From Keflex] Vomiting ciprofloxacin [From Cipro] AdvReac Nausea & Verified 05/03/16 14:01 Vomiting Review of Systems ROS Statement: Those systems with pertinent positive or pertinent negative responses have been documented in the HPI. ROS Other: All systems not noted in ROS Statement are negative. Past Medical History Past Medical History: GERD/Reflux, Hyperlipidemia, Rheumatoid Arthritis (RA) Additional Past Medical History / Comment(s): Pt recently admitted to [facility] on with nausea, vomiting and epigastric pain. Other hx: substance abuse ( pills), ibs, colitis, gastritis, chronic back pain, DDD, sinus problems. substance abuse History of Any Multi-Drug Resistant Organisms: C-DIFF Date of last positivie culture/infection: 2011 MDRO Source:: stool Past Surgical History: Cholecystectomy, Hysterectomy, Joint Replacement, Orthopedic Surgery, Tonsillectomy, Tubal Ligation Additional Past Surgical History / Comment(s): right eye cataract, R shoulder arthroscopy with anchors placed then total R shoulder, right knee surgry for spurs, skin tags off back and L shoulder (benign). Past Anesthesia/Blood Transfusion Reactions: No Reported Reaction Past Psychological History: Bipolar Additional Psychological History / Comment(s): Pt states she has had increased depression lately r/t health issues. She denies suicidal thoughts or plans. She does not wich to be . She does not have any pychiatric care. She has paper work which she is having difficulty completing it is for "Adult services" . She resides alone and has a cat. 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 Smoking Status: Current some day smoker Past Alcohol Use History: None Reported Additional Past Alcohol Use History / Comment(s): Pt states she started smoking as a teen and quit yesterday 04/08/16. Past Drug Use History: None Reported Additional Drug Use History / Comment(s): Pt states she has hx of narcotic abuse but it was yrs ago. - Past Family History Mother Family Medical History: Cancer Father Family Medical History: No Reported History Additional Family Medical History / Comment(s): Father at age 57 with history of cerebral palsy Son(s) Additional Family Medical History / Comment(s): She has 2 sons with no major medical problems. She does not have any brothers or sisters. General Exam - General Exam Comments Initial Comments: General: The patient is awake and alert, in no distress, and does not appear acutely ill. Neck: The neck is supple, there is no tenderness or JVD. Cardiovascular: There is a regular rate and rhythm. No murmur, rub or gallop is appreciated. Respiratory: Lungs are clear to auscultation, respirations are non-labored, breath sounds are equal. No wheezes, stridor, rales, or rhonchi. Musculoskeletal: Patient does have bruising and swelling over the fifth metacarpal. Shows good range of motion. Does have tenderness over the fourth and fifth metacarpal. No tenderness down into the digits. Mild tenderness to the anterior posterior aspect of the right shoulder. Shows good range of motion minus approximate 10-15 with abduction due to pain. Sensations intact with pulses equal bilaterally 2+. Strength is 5/5 Neurological: A&O x 3. CN II-XII intact, There are no obvious motor or sensory deficits. Coordination appears grossly intact. Speech is normal. Skin: Skin is warm and dry and no rashes or lesions are noted. Psychiatric: Normal mood and affect. Limitations: no limitations Course Vital Signs 05/03/16 13:43 Temperature 97.5 F L Pulse Rate 78 Respiratory 20 Rate Blood Pressure 125/76 O2 Sat by Pulse 96 Oximetry Procedures - Procedures Initial comment: Patient's right ring finger prepped cleaned with ChloraPrep. 1% lidocaine used to anesthetize the right ring finger at the head of the metacarpals. Traction pulled and flex at the PIP joint. She tolerated well. Medical Decision Making - Medical Decision Making Case discussed in detail with attending physician Dr. Guidry. Patient's x-rays of the right shoulder reviewed and shows no acute abnormalities. Shows stable hardware. Patient's x-ray of the right hand does show subluxation of the PIP joint of the right ring finger. Finger was anesthetized locally at the head of the metacarpal. Traction pulled and flexed at the PIP joint. Patient able to flex at the PIP but during extension finger hyperextends and sublux. Patient has been splinted in mild flexion and karissa taped to the third digit. 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 Disposition Clinical Impression: [place]-neck deformity of finger Disposition: HOME SELF-CARE Condition: Good Instructions: Tendon Rupture (ED) Additional Instructions: Please follow-up with the orthopedic doctor over the next 1-2 days. Please see splinted in place until follow-up appointment. Please return to emergency room if any symptoms increase or worsen or for any other concerns. Prescriptions: Acetaminophen Tab [Tylenol] 1,000 mg PO TID 5 Days Referrals: Antonia Grimes MD [Primary Care Provider] - 1-2 days Daniel Mcbride DO [Doctor of Osteopathic Medicine] - 1-2 days Time of Disposition: 14:55
[2016-05-03] MEDS ORDERED: IBUPROFEN 600 MG TAB PO STA (14:27)
--- NOTE | 2016-05-03 14:33 | XR ---
EXAMINATION TYPE: XR shoulder complete RT DATE OF EXAM: 05/03/2016 2:19 PM COMPARISON: 07/27/2014 HISTORY: 45 year-old female right-sided pain from fall TECHNIQUE: 3 views FINDINGS: As compared to 2014, there has been interval right shoulder total arthroplasty. No evident periprosth etic fracture is seen. A couple metallic pins are again demonstrated along the glenoid. Alignment is maintained. Utilized right hemithorax is clear. IMPRESSION: Right total shoulder arthroplasty without evident complication.
--- NOTE | 2016-05-03 14:35 | XR ---
EXAMINATION TYPE: XR hand complete RT DATE OF EXAM: 05/03/2016 2:19 PM COMPARISON: NONE HISTORY: 45-year-old female with right hand pain from fall TECHNIQUE: 3 views FINDINGS: No acute fracture, subluxation, or dislocation. IMPRESSION: No acute osseous abnormality seen.
== END 2016-05-03 15:03 | disposition home or self-care (01) ==
LOC: EC 13:37
DX: S63.254A Unspecified dislocation of right ring finger, initial encounter (principal); M20.031 Swan-neck deformity of right finger(s); K21.9 Gastro-esophageal reflux disease without esophagitis; E78.5 Hyperlipidemia, unspecified; M06.9 Rheumatoid arthritis, unspecified; Z79.899 Other long term (current) drug therapy; Z91.041 Radiographic dye allergy status; Z88.0 Allergy status to penicillin; Z88.1 Allergy status to other antibiotic agents; Z88.8 Allergy status to other drugs, medicaments and biological substances; W01.0XXA Fall on same level from slipping, tripping and stumbling without subsequent striking against object, initial encounter; Y92.009 Unspecified place in unspecified non-institutional (private) residence as the place of occurrence of the external cause
CPT/HCPCS: 26770; 99284

== ENCOUNTER 2016-05-16 13:53 | Emergency (ER) | payer OTHER ==
[2016-05-16] MEDS ORDERED: ONDANSETRON 4 MG/2 ML VIAL IVP STA (14:10)
[2016-05-16] MEDS ORDERED: HYDROmorphone 1 MG/ML 1 ML SYRINGE IVP STA (14:10)
[2016-05-16] MEDS ORDERED: SODIUM CHLORIDE 0.9% 1,000 ML IV STA ×2 (14:10)
--- NOTE | 2016-05-16 14:18 | ED ---
Nausea/Vomiting/Diarrhea HPI - General Chief complaint: Nausea/Vomiting/Diarrhea Stated complaint: NAUSEA, VOMITING Time Seen by Provider: 05/16/16 13:57 Source: patient, EMS, RN notes reviewed, old records reviewed Mode of arrival: EMS Limitations: no limitations - History of Present Illness Initial comments: Chief complaint and history of present illness is a 45-year-old female complaint nausea vomiting diarrhea for 3 or 4 days. She reports she had a low- grade temp at home. Also complaining chronic low back pain. Patient reports she spent a week at [facility] one month ago had an upper or lower endoscopy. Told she had gastritis. - Related Data Home Medications Medication Instructions Recorded Confirmed Pantoprazole Sodium 40 mg PO BID 12/13/13 05/16/16 Simvastatin [Zocor] 40 mg PO HS 10/04/14 05/16/16 Methocarbamol [Robaxin] 750 mg PO BID PRN 02/20/15 05/16/16 Dicyclomine [Bentyl] 20 mg PO QID 07/07/15 05/16/16 [id number] 1 tab PO Q6HR PRN 01/16/16 05/16/16 [Excedrin] Gabapentin 600 mg PO TID 02/24/16 05/16/16 Famotidine [Pepcid] 20 mg PO BID 04/19/16 05/16/16 Propranolol HCl [Inderal] 60 mg PO BID 04/19/16 05/16/16 Sucralfate [Carafate] 1 gm PO TID PRN 04/19/16 05/16/16 Acetaminophen Tab [Tylenol] 1,000 mg PO TID PRN 05/16/16 05/16/16 Albuterol Nebulized [Ventolin 2.5 mg INHALATION RT-Q4H PRN 05/16/16 05/16/16 Nebulized] Cetirizine HCl [Zyrtec] 10 mg PO DAILY 05/16/16 05/16/16 Previous Rx's Medication Instructions Recorded Ondansetron Odt [Zofran ODT] 4 mg PO Q8HR PRN #5 tab 05/16/16 Allergies Allergy/AdvReac Type Severity Reaction Status Date / Time ampicillin Allergy Unknown Verified 05/16/16 14:18 azithromycin Allergy Unknown Verified 05/16/16 14:18 Iodinated Contrast Media - Allergy Rash/Hives Verified 05/16/16 14:08 Oral and [Iodinated Contrast Media - IV Dye] metronidazole [From Flagyl] Allergy Unknown Verified 05/16/16 14:08 Penicillins Allergy Unknown Verified 05/16/16 14:08 aripiprazole [From Abilify] AdvReac Nausea & Verified 05/16/16 14:08 Vomiting cephalexin monohydrate AdvReac Nausea & Verified 05/16/16 14:08 [From Keflex] Vomiting ciprofloxacin [From Cipro] AdvReac Nausea & Verified 05/16/16 14:08 Vomiting Review of Systems ROS Statement: Those systems with pertinent positive or pertinent negative responses have been documented in the HPI. Review of systems no headache or visual acuity changes no sore throat. No neck pain. No chest pain. No shortness of breath. She has epigastric discomfort nausea vomiting diarrhea for 3 or 4 days. Low-grade temp at home. Chronic back pain. No rashes. No complaints of any neuro deficits. All systems are reviewed Past medical problems significant for gastritis, diverticulitis, chronic back pain. Bipolar disorder, GERD, hyperlipidemia, or a, previous problems with substance abuse states she's better now takes on medications that are prescribed. Also history of IBS, colitis, degenerative disc disease, sinus problems. Patient's had C. diff on occasion. Last time was 2011. Her surgeries include gallbladder, hysterectomy, joint replacement, tonsillectomy and tubal ligation. Other surgeries include cataract right eye, right shoulder arthroscopy, arthroscopic surgery for spurs. States she's more depressed lately because of her frequent problem abdomen. Quit smoking one month ago. Denies alcohol use. Family history significant for mother had breast cancer grandmother heart attack her father had cerebral palsy.. ALLERGIES include iodinated contrast material, Flagyl, penicillin, Abilify, Keflex, and Cipro. When asked specifically currently ALLERGIC reaction she had she said penicillins cause diarrhea. Others have caused upset stomach. Patient was unable to answer which cause hives or difficulty breathing. ROS Other: All systems not noted in ROS Statement are negative. Past Medical History Past Medical History: GERD/Reflux, Hyperlipidemia Additional Past Medical History / Comment(s): substance abuse, ibs, gastritis. substance abuse History of Any Multi-Drug Resistant Organisms: None Reported, C-DIFF Date of last positivie culture/infection: 2011 MDRO Source:: stool Past Surgical History: Back Surgery, Cholecystectomy, Hysterectomy, Orthopedic Surgery, Tonsillectomy, Tubal Ligation Additional Past Surgical History / Comment(s): right eye cataract, bilateral shoulder surgery, right knee surgry, Past Anesthesia/Blood Transfusion Reactions: No Reported Reaction Past Psychological History: Bipolar Additional Psychological History / Comment(s): Pt states she has had increased depression lately r/t health issues. She denies suicidal thoughts or plans. She does not wich to be . She does not have any pychiatric care. She has paper work which she is having difficulty completing it is for "Adult services" . She resides alone and has a cat. 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 Smoking Status: Former smoker Past Alcohol Use History: None Reported Additional Past Alcohol Use History / Comment(s): Patient was a smoker one and a half packs per day for 30 years and quit last weekend. She denies any medical marijuana, marijuana, street drug use. She does have history of narcotic abuse is currently receiving her medications on a regular basis from a physician in [facility]. She lives at home alone with her cat. She is currently . Past Drug Use History: None Reported Additional Drug Use History / Comment(s): Pt states she has hx of narcotic abuse but it was yrs ago. - Past Family History Mother Family Medical History: Cancer Father Family Medical History: No Reported History Additional Family Medical History / Comment(s): Father at age 57 with history of cerebral palsy Son(s) Additional Family Medical History / Comment(s): She has 2 sons with no major medical problems. She does not have any brothers or sisters. General Exam - General Exam Comments Initial Comments: General: The patient is awake and alert, in no distress, and does not appear acutely ill. Vital signs show temperature 97.7. Respiratory rate 18 pulse ox 72, pulse ox 97% room air, blood pressure 113/55. Eye: Pupils are equal, round and reactive to light, extra-ocular movements are intact ; there is normal conjunctiva bilaterally. No signs of icterus. Ears, nose, mouth and throat: There are moist mucous membranes and no oral lesions. Neck: The neck is supple, there is no tenderness. Cardiovascular: There is a regular rate and rhythm. No murmur, rub or gallop is appreciated. Respiratory: Lungs are clear to auscultation, respirations are non-labored, breath sounds are equal. No wheezes, stridor, rales, or rhonchi. Gastrointestinal: Abdomen soft, active bowel sounds, mild tenderness deep palpation, no organomegaly. Back: There is no tenderness to palpation in the midline. Chronic back pain complaints. Requesting pain medication immediately. Musculoskeletal: Normal ROM, no tenderness, There is no pedal edema. There is no calf tenderness or swelling. Sensation intact. Pulses equal bilaterally 2+. Neurological: CN II-XII intact, There are no obvious motor or sensory deficits. Coordination appears grossly intact. Speech is normal. No evidence or complaints of any neuro deficits. Skin: Skin is warm and dry and no rashes or lesions are noted. Psychiatric: History of depression, bipolar disorder. States she is mildly depressed because of her health. No thoughts of hurting herself. Limitations: no limitations Course Vital Signs 05/16/16 05/16/16 13:55 16:00 Temperature 97.2 F L Pulse Rate 72 88 Respiratory 20 20 Rate Blood Pressure 113/55 128/80 O2 Sat by Pulse 97 97 Oximetry Medical Decision Making - Medical Decision Making Medical decision making; patient's white count is 15 hemoglobin 12.7 hematocrit 39, potassium is 4.7 BUN 17 creatinine 0.87 GFR greater than 60. Amylase and lipase within normal limits. X-ray of the abdomen was done and reviewed by radiologist his impression is there is some nondistended air filled small bowel throughout the abdomen. Scattered air-fluid levels are present. No obstruction or free air is seen. Impression; findings most consistent with early ileus. As read by Dr. Orozco Patient reports feeling better after GI cocktail. She is already on medications for gastritis. Patient will be have little food before she is discharged home to follow up with her family physician to be placed on Zofran for nausea Follow-up family physician advance diet as directed - Lab Data Result diagrams: 05/16/16 15:12 05/16/16 15:12 Lab Results 05/16/16 05/16/16 Range/Units 15:12 15:12 WBC 15.3 H (3.8-10.6) k/uL RBC 3.94 (3.80-5.40) m/uL Hgb 12.7 (11.4-16.0) gm/dL Hct 39.1 (34.0-46.0) % MCV 99.1 (80.0-100.0) fL MCH 32.1 (25.0-35.0) pg MCHC 32.4 (31.0-37.0) g/dL RDW 13.8 (11.5-15.5) % Plt Count 453 H (150-450) k/uL Neutrophils % 72 % Lymphocytes % 19 % Monocytes % 6 % Eosinophils % 1 % Basophils % 0 % Neutrophils # 11.0 H (1.3-7.7) k/uL Lymphocytes # 2.8 (1.0-4.8) k/uL Monocytes # 1.0 (0-1.0) k/uL Eosinophils # 0.2 (0-0.7) k/uL Basophils # 0.0 (0-0.2) k/uL Sodium 137 (137-145) mmol/L Potassium 4.7 (3.5-5.1) mmol/L Chloride 100 (98-107) mmol/L Carbon Dioxide 27 (22-30) mmol/L Anion Gap 10 mmol/L BUN 17 (7-17) mg/dL Creatinine 0.87 (0.52-1.04) mg/dL Est GFR (MDRD) Af Amer >60 (>60 ml/min/1.73 sqM) Est GFR (MDRD) Non-Af >60 (>60 ml/min/1.73 sqM) Glucose 103 H (74-99) mg/dL Calcium 10.2 (8.4-10.2) mg/dL Total Bilirubin 0.5 (0.2-1.3) mg/dL AST 19 (14-36) U/L ALT 33 (9-52) U/L Alkaline Phosphatase 85 (38-126) U/L Total Protein 7.4 (6.3-8.2) g/dL Albumin 4.4 (3.5-5.0) g/dL Amylase 80 (30-110) U/L Lipase 150 (23-300) U/L Disposition Clinical Impression: Gastritis Disposition: HOME SELF-CARE Condition: Fair Instructions: Gastritis (ED), Diet for Stomach Ulcers and Gastritis (ED) Additional Instructions: Eat frequent small meals. Use antacids such as Maalox for flareups. Also taken one hour after meals and at bedtime. Continue all medications for gastritis prescribed by her family physician. Follow-up with your family physician. Prescriptions: Ondansetron Odt [Zofran ODT] 4 mg PO Q8HR PRN #5 tab PRN Reason: Nausea Referrals: Antonia Grimes MD [Primary Care Provider] - 1-2 days Time of Disposition: 17:14
--- NOTE | 2016-05-16 14:34 | XR ---
EXAMINATION TYPE: XR abdomen 2V DATE OF EXAM ORDERED: 05/16/2016 2:28 PM HISTORY: Pain. COMPARISON: Previous study dated 04/19/1969. FINDINGS: There has been a previous cholecystectomy. There have been previous tubal ligations. There is some nondistended air-filled small bowel throughout the abdomen. Scattered air-fluid levels are present. No obstruction or free air is seen. IMPRESSION: FINDINGS MOST CONSISTENT WITH EARLY ILEUS.
[2016-05-16 15:24] LABS: Basophils % (A) 0 %; CH 33.4; CHCM 33.9; Eosinophils # (A) 0.2 k/uL (0-0.7); Eosinophils % (A) 1 %; HCT 39.1 % (34.0-46.0); HDW 2.62; HGB 12.7 gm/dL (11.4-16.0); Luc # (Auto) 0.33; Luc % (Auto) 2; Lymphocytes # (A) 2.8 k/uL (1.0-4.8); Lymphocytes % (A) 19 %; MCH 32.1 pg (25.0-35.0); MCHC 32.4 g/dL (31.0-37.0); MCV 99.1 fL (80.0-100.0); Mean Platelet Volume 6.4; Monocytes % (A) 6 %; Neutrophils % (A) 72 %; RBC 3.94 m/uL (3.80-5.40); RDW 13.8 % (11.5-15.5); WBC 15.3 k/uL (3.8-10.6); WBC (Perox) 16.98
[2016-05-16 15:42] LABS: ALT 33 U/L (9-52); AST 19 U/L (14-36); Alkaline Phosphatase 85 U/L (38-126); Amylase 80 U/L (30-110); Anion Gap 10 mmol/L; Blood Urea Nitrogen 17 mg/dL (7-17); Calcium 10.2 mg/dL (8.4-10.2); Carbon Dioxide 27 mmol/L (22-30); Chloride 100 mmol/L (98-107); Glucose 103 mg/dL (74-99); Non-African American GFR(MDRD) >60 (>60 ml/min/1.73 sqM); Potassium 4.7 mmol/L (3.5-5.1); Sodium 137 mmol/L (137-145); Total Bilirubin 0.5 mg/dL (0.2-1.3); Total Protein 7.4 g/dL (6.3-8.2)
[2016-05-16] MEDS ORDERED: MAG HYDROX/AL HYDROX/SIMETH 30 ML, HYOSCYAMINE ELIXIR 10 ML, CIMETIDINE HCL 300 MG PO STA ×3 (15:50)
[2016-05-16 16:20] VITALS: PULSE 88
[2016-05-16 17:43] VITALS: BP 149/72; RESP 18; TEMP 98.8
== END 2016-05-16 18:04 | disposition home or self-care (01) ==
LOC: EC 13:53
DX: K29.70 Gastritis, unspecified, without bleeding (principal); R11.2 Nausea with vomiting, unspecified; M54.5 Low back pain; G89.29 Other chronic pain; K21.9 Gastro-esophageal reflux disease without esophagitis; E78.5 Hyperlipidemia, unspecified; F31.9 Bipolar disorder, unspecified; K58.9 Irritable bowel syndrome, unspecified; Z87.891 Personal history of nicotine dependence; Z79.899 Other long term (current) drug therapy; Z88.0 Allergy status to penicillin; Z88.1 Allergy status to other antibiotic agents; Z91.041 Radiographic dye allergy status; Z88.8 Allergy status to other drugs, medicaments and biological substances; Z87.19 Personal history of other diseases of the digestive system; Z90.49 Acquired absence of other specified parts of digestive tract
CPT/HCPCS: 36415; 80053; 82150; 83690; 85025; 74020; 99285; 96374; 96375; 96361 ×2; J2405; J1170

== ENCOUNTER 2016-05-18 09:05 | Emergency (ER) | payer OTHER ==
[2016-05-18 09:14] VITALS: RESP 16
[2016-05-18] MEDS ORDERED: SODIUM CHLORIDE 0.9% 500 ML IV STA (10:28)
--- NOTE | 2016-05-18 10:29 | ED ---
General Adult HPI - General Chief complaint: Nausea/Vomiting/Diarrhea Stated complaint: abd pain Time Seen by Provider: 05/18/16 10:00 Source: patient, RN notes reviewed Mode of arrival: EMS Limitations: no limitations - History of Present Illness Initial comments: This is a 45-year-old female who is a regular coming into the emergency department. Patient was just here 2 days ago for the same complaint. Patient states she has abdominal cramping and some nausea vomiting or diarrhea. Patient states the Zofran doesn't appear to be helping her. Patient denies any specific area of pain in the abdomen she says it everywhere. Patient denies any back pain. Patient denies dysuria hematuria urinary frequency. Patient denies any chest pain difficulty breathing or shortness of breath. Patient denies any recent fever chills or cough. During my interview with the patient she asked for narcotic pain medications 3 times. - Related Data Home Medications Medication Instructions Recorded Confirmed Pantoprazole Sodium 40 mg PO BID 12/13/13 05/18/16 Simvastatin [Zocor] 40 mg PO HS 10/04/14 05/18/16 Methocarbamol [Robaxin] 750 mg PO BID PRN 02/20/15 05/18/16 Dicyclomine [Bentyl] 20 mg PO QID 07/07/15 05/18/16 [id number] 1 tab PO Q6HR PRN 01/16/16 05/18/16 [Excedrin] Gabapentin 600 mg PO TID 02/24/16 05/18/16 Famotidine [Pepcid] 20 mg PO BID 04/19/16 05/18/16 Propranolol HCl [Inderal] 60 mg PO BID 04/19/16 05/18/16 Sucralfate [Carafate] 1 gm PO TID PRN 04/19/16 05/18/16 Acetaminophen Tab [Tylenol] 1,000 mg PO TID PRN 05/16/16 05/18/16 Albuterol Nebulized [Ventolin 2.5 mg INHALATION RT-TID PRN 05/16/16 05/18/16 Nebulized] Cetirizine HCl [Zyrtec] 10 mg PO DAILY 05/16/16 05/18/16 Mag Hydrox/Al Hydrox/Simeth 30 ml PO Q6H PRN 05/18/16 05/18/16 [Maalox] Promethazine HCl 12.5 mg PO Q6H PRN 05/18/16 05/18/16 Previous Rx's Medication Instructions Recorded Ondansetron Odt [Zofran ODT] 4 mg PO Q8HR PRN #5 tab 05/16/16 Allergies Allergy/AdvReac Type Severity Reaction Status Date / Time ampicillin Allergy Unknown Verified 05/18/16 09:44 azithromycin Allergy Unknown Verified 05/18/16 09:44 Iodinated Contrast Media - Allergy Rash/Hives Verified 05/18/16 09:44 Oral and [Iodinated Contrast Media - IV Dye] metronidazole [From Flagyl] Allergy Unknown Verified 05/18/16 09:44 Penicillins Allergy Unknown Verified 05/18/16 09:44 aripiprazole [From Abilify] AdvReac Nausea & Verified 05/18/16 09:44 Vomiting cephalexin monohydrate AdvReac Nausea & Verified 05/18/16 09:44 [From Keflex] Vomiting ciprofloxacin [From Cipro] AdvReac Nausea & Verified 05/18/16 09:44 Vomiting Review of Systems ROS Statement: Those systems with pertinent positive or pertinent negative responses have been documented in the HPI. ROS Other: All systems not noted in ROS Statement are negative. Past Medical History Past Medical History: GERD/Reflux, Hyperlipidemia Additional Past Medical History / Comment(s): substance abuse, ibs, gastritis. substance abuse History of Any Multi-Drug Resistant Organisms: C-DIFF Date of last positivie culture/infection: 2011 MDRO Source:: stool Past Surgical History: Cholecystectomy, Hysterectomy, Orthopedic Surgery, Tonsillectomy, Tubal Ligation Additional Past Surgical History / Comment(s): right eye cataract, bilateral shoulder surgery, right knee surgry, Past Anesthesia/Blood Transfusion Reactions: No Reported Reaction Past Psychological History: Bipolar Additional Psychological History / Comment(s): Pt states she has had increased depression lately r/t health issues. She denies suicidal thoughts or plans. She does not wich to be . She does not have any pychiatric care. She has paper work which she is having difficulty completing it is for "Adult services" . She resides alone and has a cat. 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 Smoking Status: Former smoker Past Alcohol Use History: None Reported Additional Past Alcohol Use History / Comment(s): Patient was a smoker one and a half packs per day for 30 years and quit last weekend. She denies any medical marijuana, marijuana, street drug use. She does have history of narcotic abuse is currently receiving her medications on a regular basis from a physician in [facility]. She lives at home alone with her cat. She is currently . Past Drug Use History: None Reported Additional Drug Use History / Comment(s): Pt states she has hx of narcotic abuse but it was yrs ago. - Past Family History Mother Family Medical History: Cancer Father Family Medical History: No Reported History Additional Family Medical History / Comment(s): Father at age 57 with history of cerebral palsy Son(s) Additional Family Medical History / Comment(s): She has 2 sons with no major medical problems. She does not have any brothers or sisters. General Exam - General Exam Comments Initial Comments: GENERAL: Patient is well-developed and well-nourished. Patient is nontoxic and well- hydrated and is in distress. When I walked into the room the patient was sleeping ENT: Neck is soft and supple. No significant lymphadenopathy is noted. Oropharynx is clear. Moist mucous membranes. Neck has full range of motion without eliciting any pain. EYES: The sclera were anicteric and conjunctiva were pink and moist. Extraocular movements were intact and pupils were equal round and reactive to light. Eyelids were unremarkable. PULMONARY: Unlabored respirations. Good breath sounds bilaterally. No audible rales rhonchi or wheezing was noted. CARDIOVASCULAR: There is a regular rate and rhythm without any murmurs gallops or rubs. ABDOMEN: Soft and nontender with normal bowel sounds. No palpable organomegaly was noted. There is no palpable pulsatile mass. SKIN: Skin is clear with no lesions or rashes and otherwise unremarkable. NEUROLOGIC: Patient is alert and oriented x3. Cranial nerves II through XII are grossly intact. Motor and sensory are also intact. Normal speech, volume and content. Symmetrical smile. MUSCULOSKELETAL: Normal extremities with adequate strength and full range of motion. No lower extremity swelling or edema. No calf tenderness. LYMPHATICS: No significant lymphadenopathy is noted PSYCHIATRIC: Normal psychiatric evaluation. Normal interpersonal interactions appears functionally intact in deals appropriately with others. No signs of depression. No signs of anxiety. Limitations: no limitations Course Vital Signs 05/18/16 09:07 Temperature 98.7 F Pulse Rate 74 Respiratory 16 Rate Blood Pressure 138/69 O2 Sat by Pulse 97 Oximetry Medical Decision Making - Medical Decision Making I made it clear to the patient she needs to follow-up with her physician today or tomorrow she is well aware of this and states she will make her best effort - Lab Data Result diagrams: 05/18/16 10:41 05/18/16 10:41 Lab Results 05/18/16 05/18/16 Range/Units 10:41 10:41 WBC 13.5 H (3.8-10.6) k/uL RBC 3.90 (3.80-5.40) m/uL Hgb 12.7 (11.4-16.0) gm/dL Hct 37.8 (34.0-46.0) % MCV 97.0 (80.0-100.0) fL MCH 32.5 (25.0-35.0) pg MCHC 33.5 (31.0-37.0) g/dL RDW 13.4 (11.5-15.5) % Plt Count 461 H (150-450) k/uL Neutrophils % 69 % Lymphocytes % 21 % Monocytes % 7 % Eosinophils % 2 % Basophils % 0 % Neutrophils # 9.3 H (1.3-7.7) k/uL Lymphocytes # 2.8 (1.0-4.8) k/uL Monocytes # 1.0 (0-1.0) k/uL Eosinophils # 0.3 (0-0.7) k/uL Basophils # 0.0 (0-0.2) k/uL Sodium 137 (137-145) mmol/L Potassium 4.7 (3.5-5.1) mmol/L Chloride 101 (98-107) mmol/L Carbon Dioxide 25 (22-30) mmol/L Anion Gap 11 mmol/L BUN 20 H (7-17) mg/dL Creatinine 0.80 (0.52-1.04) mg/dL Est GFR (MDRD) Af Amer >60 (>60 ml/min/1.73 sqM) Est GFR (MDRD) Non-Af >60 (>60 ml/min/1.73 sqM) Glucose 99 (74-99) mg/dL Calcium 9.8 (8.4-10.2) mg/dL Total Bilirubin 0.4 (0.2-1.3) mg/dL AST 23 (14-36) U/L ALT 30 (9-52) U/L Alkaline Phosphatase 79 (38-126) U/L Total Protein 7.0 (6.3-8.2) g/dL Albumin 4.1 (3.5-5.0) g/dL Amylase 82 (30-110) U/L Lipase 187 (23-300) U/L Disposition Clinical Impression: Gastroenteritis Disposition: HOME SELF-CARE Condition: Good Instructions: Gastroenteritis (ED) Referrals: Antonia Grimes MD [Primary Care Provider] - 1-2 days Time of Disposition: 11:38
[2016-05-18] MEDS ORDERED: METOCLOPRAMIDE 5 MG/ML 2 ML VIAL IVP STA (10:30)
[2016-05-18] MEDS ORDERED: IBUPROFEN IV 600 MG in SODIUM CHLORIDE 0.9% 250 ML IV STA (10:30)
--- NOTE | 2016-05-18 10:54 | XR ---
EXAMINATION TYPE: XR KUB DATE OF EXAM: 05/18/2016 10:48 AM CLINICAL HISTORY: History of gastritis presents with abdominal pain. TECHNIQUE: 2 upright KUB images of the abdomen are obtained. COMPARISON: Abdominal x-ray series from 2 days ago. FINDINGS: Scattered gas is seen in non-distended stomach and small bowel loops. Gas is seen in non- distended colon. A few scattered air-fluid levels are noted, nonspecific finding. No pneumoperitoneum is seen. Tubal ligation clips and pelvis are redemonstrated. Cholecystectomy clips are again seen. L bárbara bases are clear and osseous structures are intact. IMPRESSION: Overall nonspecific strongly favor nonobstructive bowel gas pattern.
[2016-05-18 11:02] LABS: Basophils % (A) 0 %; CH 33.4; CHCM 34.6; Eosinophils # (A) 0.3 k/uL (0-0.7); Eosinophils % (A) 2 %; HCT 37.8 % (34.0-46.0); HDW 2.57; HGB 12.7 gm/dL (11.4-16.0); Luc # (Auto) 0.18; Luc % (Auto) 1; Lymphocytes # (A) 2.8 k/uL (1.0-4.8); Lymphocytes % (A) 21 %; MCH 32.5 pg (25.0-35.0); MCHC 33.5 g/dL (31.0-37.0); Mean Platelet Volume 6.7; Monocytes % (A) 7 %; Neutrophils # (A) 9.3 k/uL (1.3-7.7); Neutrophils % (A) 69 %; RDW 13.4 % (11.5-15.5); WBC 13.5 k/uL (3.8-10.6); WBC (Perox) 13.71
[2016-05-18 11:23] LABS: ALT 30 U/L (9-52); AST 23 U/L (14-36); Alkaline Phosphatase 79 U/L (38-126); Amylase 82 U/L (30-110); Anion Gap 11 mmol/L; Blood Urea Nitrogen 20 mg/dL (7-17); Calcium 9.8 mg/dL (8.4-10.2); Carbon Dioxide 25 mmol/L (22-30); Chloride 101 mmol/L (98-107); Glucose 99 mg/dL (74-99); Non-African American GFR(MDRD) >60 (>60 ml/min/1.73 sqM); Potassium 4.7 mmol/L (3.5-5.1); Sodium 137 mmol/L (137-145); Total Bilirubin 0.4 mg/dL (0.2-1.3)
[2016-05-18] MEDS ORDERED: DIPHENOX-ATROP STARTER PACK 8 TAB BTL PO STA (11:40)
[2016-05-18] MEDS ORDERED: ONDANSETRON 4 MG ODT STARTER PACK 2 TAB BTL PO STA (11:40)
[2016-05-18 12:00] VITALS: BP 136/62; PULSE 69; TEMP 98.5
== END 2016-05-18 12:01 | disposition home or self-care (01) ==
LOC: EC 09:05
DX: K52.9 Noninfective gastroenteritis and colitis, unspecified (principal); R11.2 Nausea with vomiting, unspecified; K21.9 Gastro-esophageal reflux disease without esophagitis; E78.5 Hyperlipidemia, unspecified; F31.9 Bipolar disorder, unspecified; Z87.891 Personal history of nicotine dependence; Z79.899 Other long term (current) drug therapy; Z88.0 Allergy status to penicillin; Z88.1 Allergy status to other antibiotic agents; Z91.041 Radiographic dye allergy status; Z88.8 Allergy status to other drugs, medicaments and biological substances; Z90.49 Acquired absence of other specified parts of digestive tract; Z90.710 Acquired absence of both cervix and uterus
CPT/HCPCS: 36415; 80053; 82150; 83690; 85025; 74000; 99284; 96365; 96375; J2765; S0119; J1741

== ENCOUNTER → 2016-05-19 | Outpatient (CLI) | payer OTHER ==
--- NOTE | 2016-05-19 10:55 | US ---
EXAMINATION TYPE: US kidneys/renal and bladder DATE OF EXAM: 05/19/2016 8:40 AM COMPARISON: NONE CLINICAL HISTORY: R31.9 HEMATURIA. Abnormal renal function per patient EXAM MEASUREMENTS: Right Kidney: 11.6 x 4.3 x 4.9 cm Left Kidney: 10.5 x 4.5 x 5.5 cm TECHNOLOGIST IMPRESSION: wnl Right Kidney: No hydronephrosis or masses seen Left Kidney: No hydronephrosis or masses seen Bladder: wnl Bilateral Jets seen: Yes There is no evidence for hydronephrosis at this point in time. No nephrolithiasis is seen. No regina s are identified. The urinary bladder is anechoic. Bilateral ureteral jets are seen. IMPRESSION: 1. Normal retroperitoneal ultrasound
--- NOTE | 2016-05-26 14:04 | US ---
EXAMINATION TYPE: US MSK right shoulder DATE OF EXAM: 05/25/2016 1:16 PM COMPARISON: Radiographs 05/03/2016 CLINICAL HISTORY: 45-year-old female Z96.611 PRESENCE OF RT ARTIFICIAL SHOULDER JOINT. Patient with l imited range of motion, pain, and recent falls. Technique: Multiple sonographic images of the right shoulder are obtained. FINDINGS: The long head biceps tendon is suboptimally visualized. There may be prior tenotomy and tenodesis. The subscapularis tendon appears thin but intact fibers are seen during internal and external rotatio n. There is heterogeneity of the soft tissues likely relating to patient's prior surgery. The short axis views of the supraspinatus tendon show no clear normal tendon architecture. There is a lso extensive heterogeneity in the expected region of the tendon on the long axis views. In addition, during dynamic maneuvers with abduction, there is abnormal superior movement of the newton ral head so that the greater tuberosity abuts the lateral margin of the acromion. There is at least mild fatty infiltration of the right supraspinatus muscle belly. The right infraspi natus muscle belly shows volume loss and more extensive fatty infiltration. Some images by the program dir of the posterior shoulder suggests some infraspinatus tendons remain i ntact. Mild degenerative joint space narrowing at the AC joint. IMPRESSION: 1. Difficult exam due to heterogeneous tissues likely secondary to the patient's prior shoulder surge ry. 2. Abnormal movement of the humeral head during abduction with abutment of the greater tuberosity to the lateral aspect of the acromion in combination with no normal tendon architecture seen especially on the short axis views of the supraspinatus are suspicious for full-thickness supraspinatus tendon t ear. 3. Some infraspinatus tendon fibers are visualized on posterior views of the shoulder. However, given moderate to severe fatty atrophy of the infraspinatus muscle belly, a significant portion of the inf raspinatus tendon is probably torn as well.
== END | disposition home or self-care (01) ==
LOC: RADUSMAIN 08:12
PROVIDERS: ATTEND Internal Medicine Nephrology
DX: R31.9 Hematuria, unspecified (principal)
CPT/HCPCS: 76770

== ENCOUNTER 2016-05-30 14:40 | Inpatient (IN) | payer MEDICAID ==
[2016-05-30] MEDS ORDERED: ACETAMINOPHEN TAB 325 MG TAB PO PRN (16:58)
[2016-05-30] MEDS ORDERED: MAGNESIUM HYDROXIDE 2,400 MG/10 ML CUP PO PRN (16:58)
[2016-05-30] MEDS ORDERED: MAG HYDROX/AL HYDROX/SIMETH 30 ML CUP PO PRN (16:58)
[2016-05-30 17:48] VITALS: BMI 29.8
[2016-05-30] MEDS ORDERED: SUCRALFATE 1 GM TAB PO PRN (17:50)
[2016-05-30] MEDS: DICYCLOMINE 20 MG TAB PO SCH ×3 (18:50→21:28)
[2016-05-30] MEDS: ATORVASTATIN 20 MG TAB PO SCH (19:54)
[2016-05-30] MEDS: DIVALPROEX 250 MG TABLET.DR PO SCH (19:57)
[2016-05-30] MEDS: PANTOPRAZOLE 40 MG TABLET PO SCH (19:57)
[2016-05-30] MEDS: PROPRANOLOL 20 MG TAB PO SCH (19:57)
[2016-05-30] MEDS: HYDROcodone/APAP 5-325MG 1 EACH TAB PO PRN (20:00)
[2016-05-30] MEDS: FAMOTIDINE 20 MG TAB PO SCH (20:00)
[2016-05-30] MEDS: GABAPENTIN 300 MG CAP PO SCH (20:44)
[2016-05-30] MEDS: LOPERAMIDE 2 MG CAP PO PRN (21:26)
[2016-05-31] MEDS: ASPIRIN-ACET-CAFF 250-250-65MG 1 EACH TAB PO PRN (00:52)
[2016-05-31] MEDS: HYDROcodone/APAP 5-325MG 1 EACH TAB PO PRN ×3 (03:28→19:17)
[2016-05-31] MEDS: LOPERAMIDE 2 MG CAP PO PRN ×2 (06:35→15:52)
[2016-05-31] MEDS: PANTOPRAZOLE 40 MG TABLET PO SCH ×2 (08:39→17:07)
[2016-05-31] MEDS: LORATADINE 10 MG TAB PO SCH (08:40)
[2016-05-31] MEDS: GABAPENTIN 300 MG CAP PO SCH ×3 (08:40→20:32)
[2016-05-31] MEDS: FAMOTIDINE 20 MG TAB PO SCH ×2 (08:40→20:32)
[2016-05-31] MEDS: PROPRANOLOL 20 MG TAB PO SCH ×2 (08:40→20:32)
[2016-05-31] MEDS: DICYCLOMINE 20 MG TAB PO SCH ×4 (08:40→20:32)
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
[2016-05-31] MEDS: ESCITALOPRAM 10 MG TAB PO SCH (10:51)
[2016-05-31 11:04] LABS: ALT 27 U/L (9-52); AST 18 U/L (14-36); Alkaline Phosphatase 68 U/L (38-126); Anion Gap 11 mmol/L; Blood Urea Nitrogen 17 mg/dL (7-17); Calcium 9.6 mg/dL (8.4-10.2); Carbon Dioxide 27 mmol/L (22-30); Chloride 94 mmol/L (98-107); Glucose 88 mg/dL (74-99); Non-African American GFR(MDRD) >60 (>60 ml/min/1.73 sqM); Potassium 4.8 mmol/L (3.5-5.1); Sodium 132 mmol/L (137-145); Total Bilirubin 0.3 mg/dL (0.2-1.3)
[2016-05-31] MEDS: ATORVASTATIN 20 MG TAB PO SCH (20:32)
[2016-05-31] MEDS: DIVALPROEX 250 MG TABLET.DR PO SCH (20:32)
[2016-06-01] MEDS: LOPERAMIDE 2 MG CAP PO PRN (05:43)
[2016-06-01] MEDS: HYDROcodone/APAP 5-325MG 1 EACH TAB PO PRN ×3 (05:43→21:48)
[2016-06-01] MEDS: PROPRANOLOL 20 MG TAB PO SCH ×2 (08:10→20:41)
[2016-06-01] MEDS: GABAPENTIN 300 MG CAP PO SCH ×3 (08:10→21:50)
[2016-06-01] MEDS: ESCITALOPRAM 10 MG TAB PO SCH (08:10)
[2016-06-01] MEDS: PANTOPRAZOLE 40 MG TABLET PO SCH ×2 (08:10→16:26)
[2016-06-01] MEDS: LORATADINE 10 MG TAB PO SCH (08:11)
[2016-06-01] MEDS: DICYCLOMINE 20 MG TAB PO SCH ×4 (08:11→21:50)
[2016-06-01] MEDS: FAMOTIDINE 20 MG TAB PO SCH ×2 (08:11→20:41)
[2016-06-01] MEDS: ASPIRIN-ACET-CAFF 250-250-65MG 1 EACH TAB PO PRN ×2 (08:13→17:09)
--- NOTE | 2016-06-01 10:38 | P.CONS ---
History of Present Illness - Reason for Consult Consult date: 05/31/16 medical management - History of Present Illness This is a 45-year-old female. Her primary care physician is Dr. Antonia Grimes. She has a past medical history for gastroesophageal reflux disease , hyperlipidemia, irritable bowel syndrome worked up with Dr. Meza for EGD and colonoscopy, gastritis, C. difficile colitis in 2011, substance abuse with narcotics, bipolar, tobacco use and dependence. patient states that on she went to [facility] due to gastritis and irritable bowel syndrome and was admitted to the hospital. She states the nurse started asking her if she was suicidal and she responded that she was leaning towards that due to her multiple medical problems. She patient states that she ended up going to court and was brought by ambulance to [facility] mental health unit. Patient was admitted to the mental health unit. sodium is low at 132 most likely due to Depakote. TSH is 1.400. Patient states that she underwent EGD 1 month ago for gastritis and has been on Pepcid.we will plan to continue Carafate as well. Patient has used Motrin in the past but recently stopped using. She does state that she has an appointment next month to have surgery on her right shoulder for the third time. Review of Systems All systems: negative Constitutional: Denies chills, Denies fever Eyes: denies blurred vision, denies pain Ears, nose, mouth and throat: Denies headache, Denies sore throat Cardiovascular: Denies chest pain, Denies shortness of breath Respiratory: Denies cough Gastrointestinal: Denies abdominal pain, Denies diarrhea, Denies nausea, Denies vomiting Genitourinary: Denies dysuria, Denies hematuria Musculoskeletal: Denies myalgias Integumentary: Denies pruritus, Denies rash Neurological: Denies numbness, Denies weakness Psychiatric: Reports depression, Denies anxiety, Denies hopelessness, Denies suicidal ideation Endocrine: Denies fatigue, Denies weight change Past Medical History Past Medical History: GERD/Reflux, Hyperlipidemia Additional Past Medical History / Comment(s): substance abuse, ibs, gastritis. substance abuse History of Any Multi-Drug Resistant Organisms: None Reported Year Discovered:: None MDRO Source:: None Past Surgical History: Cholecystectomy, Hysterectomy, Orthopedic Surgery, Tonsillectomy, Tubal Ligation Additional Past Surgical History / Comment(s): right eye cataract, bilateral shoulder surgery x2, right knee surgry, partial hysterectomy, back surgery was to remove skin tags. Past Anesthesia/Blood Transfusion Reactions: No Reported Reaction Past Psychological History: Bipolar, Depression Additional Psychological History / Comment(s): Pt states she has had increased depression lately r/t health issues. She denies suicidal thoughts or plans. She does not wich to be . She does not have any pychiatric care. She has paper work which she is having difficulty completing it is for "Adult services" . She resides alone and has a cat. 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 Smoking Status: Former smoker Past Alcohol Use History: None Reported Additional Past Alcohol Use History / Comment(s): Patient was a smoker one and a half packs per day for 30 years and quit last weekend. She denies any medical marijuana, marijuana, street drug use. She does have history of narcotic abuse is currently receiving her medications on a regular basis from a physician in [facility]. She lives at home alone with her cat. She is currently . Past Drug Use History: None Reported Additional Drug Use History / Comment(s): Pt states she has hx of narcotic abuse but it was yrs ago. - Past Family History Mother Family Medical History: Cancer Additional Family Medical History / Comment(s): patient does not know history on her mother as they have had relationship on and off over the years. Father Family Medical History: No Reported History Additional Family Medical History / Comment(s): Father at age 57 with history of cerebral palsy Son(s) Additional Family Medical History / Comment(s): She has 2 sons with no major medical problems. She does not have any brothers or sisters. Medications and Allergies Home Medications Medication Instructions Recorded Confirmed Type Pantoprazole Sodium 40 mg PO BID 12/13/13 05/30/16 History Simvastatin [Zocor] 40 mg PO HS 10/04/14 05/30/16 History Methocarbamol [Robaxin] 750 mg PO TID PRN 02/20/15 05/30/16 History Dicyclomine [Bentyl] 20 mg PO QID 07/07/15 05/30/16 History [id number]-[id number] 2 tab PO Q6HR PRN 01/16/16 05/30/16 History [Excedrin] Gabapentin 600 mg PO TID 02/24/16 05/30/16 History Famotidine [Pepcid] 20 mg PO BID 04/19/16 05/30/16 History Propranolol HCl [Inderal] 60 mg PO BID 04/19/16 05/30/16 History Sucralfate [Carafate] 1 gm PO TID PRN 04/19/16 05/30/16 History Acetaminophen Tab [Tylenol] 1,000 mg PO TID PRN 05/16/16 05/30/16 History Albuterol Nebulized [Ventolin 2.5 mg INHALATION RT-TID PRN 05/16/16 05/30/16 History Nebulized] Cetirizine HCl [Zyrtec] 10 mg PO DAILY 05/16/16 05/30/16 History Mag Hydrox/Al Hydrox/Simeth 30 ml PO Q6H PRN 05/18/16 05/30/16 History [Maalox] Promethazine HCl 12.5 mg PO Q6H PRN 05/18/16 05/30/16 History Acetaminophen-Codeine 300-30mg 1 tab PO Q4H PRN 05/30/16 05/30/16 History [Tylenol #3] Diphenox-Atrop 2.5-0.025 mg 1 tab PO TID PRN 05/30/16 05/30/16 History [Lomotil] Divalproex [Depakote] 250 mg PO HS 05/30/16 05/30/16 History Loperamide [Imodium] 2 mg PO Q4H PRN 05/30/16 05/30/16 History Allergies Allergy/AdvReac Type Severity Reaction Status Date / Time ampicillin Allergy Unknown Verified 05/30/16 17:23 azithromycin Allergy Unknown Verified 05/30/16 17:23 Iodinated Contrast Media - Allergy Rash/Hives Verified 05/30/16 17:23 Oral and [Iodinated Contrast Media - IV Dye] metronidazole [From Flagyl] Allergy Unknown Verified 05/30/16 17:23 Penicillins Allergy Unknown Verified 05/30/16 17:23 aripiprazole [From Abilify] AdvReac Nausea & Verified 05/30/16 17:23 Vomiting cephalexin monohydrate AdvReac Nausea & Verified 05/30/16 17:23 [From Keflex] Vomiting ciprofloxacin [From Cipro] AdvReac Nausea & Verified 05/30/16 17:23 Vomiting Physical Exam Vitals: Vital Signs Temp Pulse Resp BP Pulse Ox 05/31/16 08:42 73 110/70 05/31/16 00:53 98.0 F 62 16 108/58 05/30/16 20:04 81 18 118/61 05/30/16 17:24 99.1 F 115 H 18 130/78 98 Intake and Output 05/30/16 05/31/16 05/31/16 22:59 06:59 14:59 Other: Weight 71.7 kg Gen: This is a 45 year old female. She is cooperative and appears to be in no acute distress. HEENT: Head is atraumatic, normocephalic. Pupils equal, round. Sclerae is anicteric. NECK: Supple. No JVD. No lymphadenopathy. No thyromegaly. LUNGS: Clear to auscultation. No wheezes or rhonchi. No intercostal retractions. HEART: Regular rate and rhythm. No murmur. ABDOMEN: Soft. Bowel sounds are present. No masses. No tenderness. EXTREMITIES: No pedal edema. No calf tenderness. NEUROLOGICAL: Patient is awake, alert and oriented x3. Cranial nerves 2 through 12 are grossly intact. Results CBC & Chem 7: 05/31/16 09:59 Assessment and Plan Plan: 1. Depression recurrent with bipolar history and suicidal ideation. Patient admitted to the mental health unit. Continue current plan of care. 2. History of narcotic abuse and has followed with Dr. Conde in [place]. 3. Gastroesophageal reflux disease and gastritis. Continue Protonix 40 mg twice daily and Carafate 1 mg before meals and at bedtime 4. Irritable bowel syndrome. Continue Lomotil as needed and Bentyl. 5. Chronic pain. Continue [place], Neurontin. 6. Tobacco use and dependence, quit recently. Impression and plan of care have been directed as dictated by the signing physician. Sarah Jalloh nurse practitioner acting as scribe for signing physician. Time with Patient: Greater than 30
--- NOTE | 2016-06-01 10:54 | P.PN ---
Progress Note - Text Interval history: The patient is found in the hallway she follows me to an interview room. She reports that her mood is stabilizing. She feels that she is having some nausea with the initiation of Lexapro. She does feel that this is tolerable and is willing to continue the medication further as it we'll likely subside. She states that she attended a few groups yesterday. She has given social work permission to speak with her friend who is her former boyfriend. Mental status exam: The patient is alert she seated calmly hygiene grooming adequate. Speech is fluent spontaneous nonpressured. She is reporting no acute suicidal or homicidal ideation intent or plan. There is no report or evidence of psychosis. There is no objective evidence of hypomanic or manic symptoms. Insight and judgment improving. She remains oriented to person place and date. Thought process can be concrete. There is no evidence of tangential thinking loose associations or flight of ideas. She demonstrates no verbal or physical aggressiveness. Plan: The patient will continue on her current psychotropic medications. If she remains clinically stable and demonstrates further improvement we will consider discharging her tomorrow. We will monitor for safety and encourage her participation in the milieu. Social work will arrange a support meeting.
[2016-06-01 11:23] LABS: Appearance,Urine Clear (Clear); Bilirubin,Urine Negative (Negative); Glucose,Urine (UA) Negative (Negative); Ketones,Urine Negative (Negative); Leukocyte Esterase,Urine Negative (Negative); Mucus,Urine Rare /hpf; Nitrite,Urine Negative (Negative); PH, Urine 6.5 (5.0-8.0); Particle Count 4631; Protein,Urine 2+ (Negative); Specific Gravity,Urine 1.015 (1.001-1.035); Squamous Epithelial Cell,Urine 1 /hpf (0-4); UA Billing (MACRO vs. MICRO) MICRO; Urobilinogen,Urine <2.0 mg/dL (<2.0); WBC,Urine 1 /hpf (0-5)
[2016-06-01] MEDS: METHOCARBAMOL 750 MG TAB PO PRN ×2 (13:27→21:48)
[2016-06-01] MEDS: ONDANSETRON ODT 4 MG TAB PO PRN ×2 (13:27→21:48)
[2016-06-01] MEDS: ALBUTEROL NEBULIZED 2.5 MG/3 ML INHALATION PRN ×2 (13:33→22:15)
[2016-06-01] MEDS: DIVALPROEX 250 MG TABLET.DR PO SCH (20:40)
[2016-06-01] MEDS: ATORVASTATIN 20 MG TAB PO SCH (20:41)
[2016-06-02] MEDS: ALBUTEROL NEBULIZED 2.5 MG/3 ML INHALATION PRN (02:06)
[2016-06-02] MEDS: ASPIRIN-ACET-CAFF 250-250-65MG 1 EACH TAB PO PRN (02:23)
[2016-06-02] MEDS: PANTOPRAZOLE 40 MG TABLET PO SCH (08:29)
[2016-06-02] MEDS: ESCITALOPRAM 10 MG TAB PO SCH (08:29)
[2016-06-02] MEDS: DICYCLOMINE 20 MG TAB PO SCH ×2 (08:29→14:42)
[2016-06-02] MEDS: FAMOTIDINE 20 MG TAB PO SCH (08:30)
[2016-06-02] MEDS: GABAPENTIN 300 MG CAP PO SCH (08:30)
[2016-06-02] MEDS: LORATADINE 10 MG TAB PO SCH (08:30)
[2016-06-02 08:32] VITALS: BP 94/65; PULSE 73; RESP 18; TEMP 98.1
[2016-06-02] MEDS: PROPRANOLOL 20 MG TAB PO SCH (08:32)
[2016-06-02] MEDS: ONDANSETRON ODT 4 MG TAB PO PRN (09:59)
--- NOTE | 2016-06-02 10:04 | P.DS ---
Providers Date of admission: 05/30/16 16:20 Expected date of discharge: 06/02/16 Attending physician: Malachi Nichole Consults: 05/30/16 16:58 Consult Physician Routine Consulting Provider: Efrain Lincoln Consult Reason/Comments: H and P and Medical Management Do you want consulting provider notified?: Yes Primary care physician: Antonia Grimes - Discharge Diagnosis(es) (1) Major depressive disorder, recurrent Current Visit: Yes Status: Acute Priority: High Hospital Course: Brief summary of admission note: This patient is a 45-year-old female who presented from [facility] with a petition indicating suicidal ideation. The patient reported she presented to them with gastrointestinal symptoms she felt nauseous and was in physical pain. She informed me on 2016 she was not actually suicidal and did not feel she needed to be admitted to the mental health unit. [facility] until she was placed on our unit. She did indicate that she has a previous diagnosis of gastritis. She reported that her sleep was increased energy was low appetite was low. She indicated she felt depressed at times. She has not been engaged in outpatient mental health services. For full detail please refer to my psychiatric evaluation dated 05/31/2016. Summary of hospital course: The patient was admitted to the mental health unit she signed in voluntarily. She stated she had no acute suicidal ideation but was willing to let us assess her symptoms and provide a medication recommendation. We decided to initiate Lexapro 10 mg daily. She was continued on her other medications. She selectively attended groups. At no point did she indicate any suicidal ideation. She states she is willing to work with an individual therapist again and an outpatient psychiatrist. She is looking forward to her appointment with her drafter construction next week. She demonstrated no agitated behavior. She did allow us to contact her male friend who is her ex-boyfriend. He serves as her primary support. The patient underwent a routine medical consultation. The patient's has been verbalizing that she is motivated for discharge. Mental status exam: The patient is an overweight female appearing her stated age. She seated calmly. Eye contact is appropriate speech is fluent spontaneous nonpressured. She states her mood is stable she is reporting no suicidal or homicidal ideation intent or plan. She states she does not feel hopeless. She endorses no auditory or visual hallucinations she is endorsing no specific delusions. There is no evidence of hallucinations or delusional thought. She does not appear hypomanic or manic. Thought process is linear and goal directed. She demonstrates no circumstantial thoughts, tangential thinking, loose associations or flight of ideas. Insight and judgment grossly intact. Cognitively she is oriented to person place and date. She demonstrates no psychomotor agitation or slowing. He is ambulating without ataxia. Affect is able to demonstrate some range. Impressions 1. Major depressive disorder recurrent, rule out PTSD 2. Several medical comorbidities contributing to mood symptoms mainly concerned with gastritis symptoms 3. Limited social support, impaired previous follow through with outpatient mental health services Plan: The patient will be discharged mental health unit today to return home. She will continue on Lexapro 10 mg daily. Social work will arrange for outpatient mental health follow-up. She is requesting to go to [facility]. She is agreeable to meeting with a therapist on a weekly basis as psychotherapy would be an important part of her treatment. She will follow up with her primary care physician and drafter construction. There is no imminent safety risk she is appropriate for transition to outpatient mental health services. She is instructed to report to the emergency room with any acute safety concerns. Her neurologist has placed her on Depakote and he will manage that medication. Patient Condition at Discharge: Stable Plan - Discharge Summary New Discharge Prescriptions: Escitalopram [Lexapro] 10 mg PO DAILY #30 tab Discharge Medication List Pantoprazole Sodium 40 mg PO BID 12/13/13 [History] Simvastatin [Zocor] 40 mg PO HS 10/04/14 [History] Methocarbamol [Robaxin] 750 mg PO TID PRN 02/20/15 [History] Dicyclomine [Bentyl] 20 mg PO QID 07/07/15 [History] [id number] [Excedrin] 2 tab PO Q6HR PRN 01/16/16 [History] Gabapentin 600 mg PO TID 02/24/16 [History] Famotidine [Pepcid] 20 mg PO BID 04/19/16 [History] Propranolol HCl [Inderal] 60 mg PO BID 04/19/16 [History] Sucralfate [Carafate] 1 gm PO TID PRN 04/19/16 [History] Acetaminophen Tab [Tylenol] 1,000 mg PO TID PRN 05/16/16 [History] Albuterol Nebulized [Ventolin Nebulized] 2.5 mg INHALATION RT-TID PRN 05/16/16 [ History] Cetirizine HCl [Zyrtec] 10 mg PO DAILY 05/16/16 [History] Ondansetron Odt [Zofran ODT] 4 mg PO Q8HR PRN #5 tab 05/16/16 [Rx] Mag Hydrox/Al Hydrox/Simeth [Maalox] 30 ml PO Q6H PRN 05/18/16 [History] Promethazine HCl 12.5 mg PO Q6H PRN 05/18/16 [History] Diphenox-Atrop 2.5-0.025 mg [Lomotil] 1 tab PO TID PRN 05/30/16 [History] Divalproex [Depakote] 250 mg PO HS 05/30/16 [History] Loperamide [Imodium] 2 mg PO Q4H PRN 05/30/16 [History] Escitalopram [Lexapro] 10 mg PO DAILY #30 tab 06/02/16 [Rx] Follow up Appointment(s)/Referral(s): [facility] [Outside] - 06/08/16 12:00 pm (Intake with Cassandra 06/08/16 at 12:00 pm. Please arrive 30 minutes early for paperwork.) Chris Uriostegui DO [Doctor of Osteopathic Medicine] - 2 Weeks (check for food allergies)
== END 2016-06-02 13:51 | disposition home or self-care (01) | DRG 885 ==
LOC: 3MHU 16:20
PROVIDERS: ADMIT Psychiatry & Neurology Psychiatry; ATTEND Psychiatry & Neurology Psychiatry
DX: F33.9 Major depressive disorder, recurrent, unspecified (principal); E87.1 Hypo-osmolality and hyponatremia; R45.851 Suicidal ideations; E78.5 Hyperlipidemia, unspecified; E66.3 Overweight; F43.10 Post-traumatic stress disorder, unspecified; K21.9 Gastro-esophageal reflux disease without esophagitis; K58.9 Irritable bowel syndrome, unspecified; Z79.899 Other long term (current) drug therapy; Z86.59 Personal history of other mental and behavioral disorders; Z87.891 Personal history of nicotine dependence; Z91.410 Personal history of adult physical and sexual abuse; G89.29 Other chronic pain; G43.909 Migraine, unspecified, not intractable, without status migrainosus; Z60.2 Problems related to living alone; T42.6X5A Adverse effect of other antiepileptic and sedative-hypnotic drugs, initial encounter; Z79.82 Long term (current) use of aspirin; Z88.0 Allergy status to penicillin; Z88.1 Allergy status to other antibiotic agents; Z88.3 Allergy status to other anti-infective agents; Z91.041 Radiographic dye allergy status
CPT/HCPCS: 80053; 81001; 81025; 84443; 94640

== ENCOUNTER 2016-06-06 07:24 | Observation (INO) | payer OTHER ==
[2016-06-06] MEDS ORDERED: MORPHINE SULFATE 4 MG/ML SYRINGE IV STA (07:45)
[2016-06-06] MEDS ORDERED: SODIUM CHLORIDE 0.9% 1,000 ML IV STA (07:45)
[2016-06-06] MEDS ORDERED: ONDANSETRON 4 MG/2 ML VIAL IVP STA ×2 (07:45→10:04)
[2016-06-06] MEDS ORDERED: SODIUM CHLORIDE 0.9% 500 ML IV STA (07:45)
--- NOTE | 2016-06-06 08:01 | ED ---
Abdominal Pain HPI - General Chief Complaint: Abdominal Pain Stated Complaint: Abd pain,nausea Time Seen by Provider: 06/06/16 07:35 Source: patient, EMS Mode of arrival: EMS Limitations: no limitations - History of Present Illness Initial Comments: Planing about abdominal pain, nausea vomiting she stated she threw up more than 20 times over the last couple days prior GI doctor Dr. Ramirez's nurse called the patient stating that her cortisol levels were quite low that was back on Tuesday, abdominal pain is generalized and it's not focused on the one area she has multiple abdominal surgeries including gallbladder including hysterectomy and tubal ligation she still has appendix she had some fever and chills. Denies any headaches no neck stiffness has chest pain and abdominal pain. Denies any signs of TIA or CVA - Related Data Home Medications Medication Instructions Recorded Confirmed Pantoprazole Sodium 40 mg PO BID 12/13/13 06/06/16 Simvastatin [Zocor] 40 mg PO HS 10/04/14 06/06/16 Methocarbamol [Robaxin] 750 mg PO TID PRN 02/20/15 06/06/16 Dicyclomine [Bentyl] 20 mg PO QID 07/07/15 06/06/16 [id number] 2 tab PO Q6HR PRN 01/16/16 06/06/16 [Excedrin] Gabapentin 600 mg PO TID 02/24/16 06/06/16 Famotidine [Pepcid] 20 mg PO BID 04/19/16 06/06/16 Propranolol HCl [Inderal] 60 mg PO BID 04/19/16 06/06/16 Sucralfate [Carafate] 1 gm PO AC-TID 04/19/16 06/06/16 Acetaminophen Tab [Tylenol] 1,000 mg PO TID PRN 05/16/16 06/06/16 Albuterol Nebulized [Ventolin 2.5 mg INHALATION RT-TID PRN 05/16/16 06/06/16 Nebulized] Cetirizine HCl [Zyrtec] 10 mg PO DAILY 05/16/16 06/06/16 Mag Hydrox/Al Hydrox/Simeth 30 ml PO Q6H PRN 05/18/16 06/06/16 [Maalox] Promethazine HCl 12.5 mg PO Q6H PRN 05/18/16 06/06/16 Diphenox-Atrop 2.5-0.025 mg 1 tab PO TID PRN 05/30/16 06/06/16 [Lomotil] Divalproex [Depakote] 250 mg PO HS 05/30/16 06/06/16 Loperamide [Imodium] 2 mg PO Q4H PRN 05/30/16 06/06/16 Previous Rx's Medication Instructions Recorded Ondansetron Odt [Zofran ODT] 4 mg PO Q8HR PRN #5 tab 05/16/16 Escitalopram [Lexapro] 10 mg PO DAILY #30 tab 06/02/16 Allergies Allergy/AdvReac Type Severity Reaction Status Date / Time ampicillin Allergy Unknown Verified 06/06/16 10:54 azithromycin Allergy Unknown Verified 06/06/16 10:54 Iodinated Contrast Media - Allergy Rash/Hives Verified 06/06/16 10:54 Oral and [Iodinated Contrast Media - IV Dye] metronidazole [From Flagyl] Allergy Unknown Verified 06/06/16 10:54 Penicillins Allergy Unknown Verified 06/06/16 10:54 aripiprazole [From Abilify] AdvReac Nausea & Verified 06/06/16 10:54 Vomiting cephalexin monohydrate AdvReac Nausea & Verified 06/06/16 10:54 [From Keflex] Vomiting ciprofloxacin [From Cipro] AdvReac Nausea & Verified 06/06/16 10:54 Vomiting Review of Systems ROS Statement: Those systems with pertinent positive or pertinent negative responses have been documented in the HPI. ROS Other: All systems not noted in ROS Statement are negative. Past Medical History Past Medical History: GERD/Reflux, Hyperlipidemia Additional Past Medical History / Comment(s): substance abuse-pt states she doesn't remember, ibs, gastritis. substance abuse History of Any Multi-Drug Resistant Organisms: C-DIFF Date of last positivie culture/infection: 2011 MDRO Source:: stool Past Surgical History: Cholecystectomy, Hysterectomy, Orthopedic Surgery, Tonsillectomy, Tubal Ligation Additional Past Surgical History / Comment(s): right eye cataract, bilateral shoulder surgery x2, right knee surgry, partial hysterectomy, back surgery was to remove skin tags. Past Anesthesia/Blood Transfusion Reactions: No Reported Reaction Past Psychological History: Bipolar, Depression Additional Psychological History / Comment(s): Pt states she has had increased depression lately r/t health issues. She denies suicidal thoughts or plans. She does not wich to be . She does not have any pychiatric care. She has paper work which she is having difficulty completing it is for "Adult services" . She resides alone and has a cat. 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 Smoking Status: Former smoker Past Alcohol Use History: None Reported Additional Past Alcohol Use History / Comment(s): Patient was a smoker one and a half packs per day for 30 years and quit last weekend. She denies any medical marijuana, marijuana, street drug use. She does have history of narcotic abuse is currently receiving her medications on a regular basis from a physician in [facility]. She lives at home alone with her cat. She is currently . Past Drug Use History: None Reported Additional Drug Use History / Comment(s): Pt states she has hx of narcotic abuse but it was yrs ago. - Past Family History Mother Family Medical History: Cancer Additional Family Medical History / Comment(s): patient does not know history on her mother as they have had relationship on and off over the years. Father Family Medical History: No Reported History Additional Family Medical History / Comment(s): Father at age 57 with history of cerebral palsy Son(s) Additional Family Medical History / Comment(s): She has 2 sons with no major medical problems. She does not have any brothers or sisters. General Exam - General Exam Comments Initial Comments: General: The patient is awake and alert, looks anxious Skin: Skin is warm and dry and no rashes or lesions are noted. Eye: Pupils are equal, round and reactive to light, extra-ocular movements are intact; there is normal conjunctiva bilaterally. Ears, nose, mouth and throat: There are moist mucous membranes and no oral lesions. Neck: The neck is supple, there is no tenderness or JVD. Cardiovascular: There is a regular rate and rhythm. No murmur, rub or gallop is appreciated. Respiratory: To auscultation bilateral, crease breath sounds bilaterally Gastrointestinal: Tender in epigastric area Back: There is no tenderness to palpation in the midline. There is no obvious deformity. Musculoskeletal: Normal ROM, no tenderness, There is no pedal edema. There is no calf tenderness or swelling. No cords were appreciated. Neurological: CN II-XII intact, Cranial nerves III through XII are intact. There are no obvious motor or sensory deficits. Coordination appears grossly intact. Speech is normal. Psychiatric: Cooperative, appropriate mood & affect, normal judgment. Limitations: no limitations Course Vital Signs 06/06/16 06/06/16 07:25 09:11 Temperature 98.5 F 98.3 F Pulse Rate 83 76 Respiratory 16 16 Rate Blood Pressure 111/66 122/69 O2 Sat by Pulse 99 99 Oximetry EKG is a normal sinus rhythm medical rate of 69 MD interval is 118 QRS duration is 86 QT/QTc is 400/428 notice a T-wave inversion in lead [address] elevation or ST depression noticed in the other leads Complaining about abdominal pain and the chest pain and wanted to do CT chest to rule out PE as well as CT abdomen for any abdominal pathology but unfortunately she is ALLERGIC to IV contrast considering that I'm canal go for a VQ scan to rule out any PE and will hospitalize her on hospitalist services if she did benefit from a CT abdomen without the contrast WILL LET THE HOSPITALIST SERVICES DECIDE ON THE Medical Decision Making - Lab Data Result diagrams: 06/06/16 08:15 06/06/16 08:15 Lab Results 06/06/16 06/06/16 06/06/16 Range/Units 08:15 08:15 08:15 WBC 12.6 H (3.8-10.6) k/uL RBC 3.55 L (3.80-5.40) m/uL Hgb 11.7 (11.4-16.0) gm/dL Hct 34.1 (34.0-46.0) % MCV 95.8 (80.0-100.0) fL MCH 33.0 (25.0-35.0) pg MCHC 34.5 (31.0-37.0) g/dL RDW 13.4 (11.5-15.5) % Plt Count 394 (150-450) k/uL Neutrophils % 72 % Lymphocytes % 20 % Monocytes % 6 % Eosinophils % 1 % Basophils % 0 % Neutrophils # 9.0 H (1.3-7.7) k/uL Lymphocytes # 2.5 (1.0-4.8) k/uL Monocytes # 0.7 (0-1.0) k/uL Eosinophils # 0.1 (0-0.7) k/uL Basophils # 0.0 (0-0.2) k/uL Sodium 131 L (137-145) mmol/L Potassium 4.1 (3.5-5.1) mmol/L Chloride 94 L (98-107) mmol/L Carbon Dioxide 26 (22-30) mmol/L Anion Gap 11 mmol/L BUN 13 (7-17) mg/dL Creatinine 0.74 (0.52-1.04) mg/dL Est GFR (MDRD) Af Amer >60 (>60 ml/min/1.73 sqM) Est GFR (MDRD) Non-Af >60 (>60 ml/min/1.73 sqM) Glucose 108 H (74-99) mg/dL Calcium 9.6 (8.4-10.2) mg/dL Total Bilirubin 0.5 (0.2-1.3) mg/dL AST 24 (14-36) U/L ALT 28 (9-52) U/L Alkaline Phosphatase 73 (38-126) U/L Troponin I <0.012 (0.000-0.034) ng/mL Total Protein 6.9 (6.3-8.2) g/dL Albumin 4.0 (3.5-5.0) g/dL Amylase 69 (30-110) U/L Lipase 183 (23-300) U/L Cortisol 21 ug/dL Urine Color Urine Appearance (Clear) Urine pH (5.0-8.0) Ur Specific [place]der[place] (1.001-1.035) Urine Protein (Negative) Urine Glucose (UA) (Negative) Urine Ketones (Negative) Urine Blood (Negative) Urine Nitrite (Negative) Urine Bilirubin (Negative) Urine Urobilinogen (<2.0) mg/dL Ur Leukocyte Esterase (Negative) Urine RBC (0-5) /hpf Ur Squamous Epith Cells (0-4) /hpf Amorphous Sediment (None) /hpf Urine Mucus (None) /hpf 06/06/16 Range/Units 10:37 WBC (3.8-10.6) k/uL RBC (3.80-5.40) m/uL Hgb (11.4-16.0) gm/dL Hct (34.0-46.0) % MCV (80.0-100.0) fL MCH (25.0-35.0) pg MCHC (31.0-37.0) g/dL RDW (11.5-15.5) % Plt Count (150-450) k/uL Neutrophils % % Lymphocytes % % Monocytes % % Eosinophils % % Basophils % % Neutrophils # (1.3-7.7) k/uL Lymphocytes # (1.0-4.8) k/uL Monocytes # (0-1.0) k/uL Eosinophils # (0-0.7) k/uL Basophils # (0-0.2) k/uL Sodium (137-145) mmol/L Potassium (3.5-5.1) mmol/L Chloride (98-107) mmol/L Carbon Dioxide (22-30) mmol/L Anion Gap mmol/L BUN (7-17) mg/dL Creatinine (0.52-1.04) mg/dL Est GFR (MDRD) Af Amer (>60 ml/min/1.73 sqM) Est GFR (MDRD) Non-Af (>60 ml/min/1.73 sqM) Glucose (74-99) mg/dL Calcium (8.4-10.2) mg/dL Total Bilirubin (0.2-1.3) mg/dL AST (14-36) U/L ALT (9-52) U/L Alkaline Phosphatase (38-126) U/L Troponin I (0.000-0.034) ng/mL Total Protein (6.3-8.2) g/dL Albumin (3.5-5.0) g/dL Amylase (30-110) U/L Lipase (23-300) U/L Cortisol ug/dL Urine Color Yellow Urine Appearance Clear (Clear) Urine pH 8.5 H (5.0-8.0) Ur Specific [place] 1.008 (1.001-1.035) Urine Protein 1+ H (Negative) Urine Glucose (UA) Negative (Negative) Urine Ketones Trace H (Negative) Urine Blood Small H (Negative) Urine Nitrite Negative (Negative) Urine Bilirubin Negative (Negative) Urine Urobilinogen <2.0 (<2.0) mg/dL Ur Leukocyte Esterase Negative (Negative) Urine RBC 15 H (0-5) /hpf Ur Squamous Epith Cells <1 (0-4) /hpf Amorphous Sediment Rare H (None) /hpf Urine Mucus Rare H (None) /hpf Disposition Clinical Impression: Pneumonia, Nausea and vomiting, Abdominal pain, Chest pain Disposition: ADMITTED IP TO THIS HOSP
[2016-06-06 08:45] LABS: Basophils % (A) 0 %; CH 33.5; CHCM 35.1; Eosinophils # (A) 0.1 k/uL (0-0.7); Eosinophils % (A) 1 %; HCT 34.1 % (34.0-46.0); HDW 2.53; HGB 11.7 gm/dL (11.4-16.0); Luc # (Auto) 0.17; Luc % (Auto) 1; Lymphocytes # (A) 2.5 k/uL (1.0-4.8); Lymphocytes % (A) 20 %; MCHC 34.5 g/dL (31.0-37.0); MCV 95.8 fL (80.0-100.0); Mean Platelet Volume 6.5; Monocytes # (A) 0.7 k/uL (0-1.0); Monocytes % (A) 6 %; Neutrophils % (A) 72 %; RBC 3.55 m/uL (3.80-5.40); RDW 13.4 % (11.5-15.5); WBC 12.6 k/uL (3.8-10.6); WBC (Perox) 12.49
[2016-06-06 08:56] LABS: Amylase 69 U/L (30-110); Anion Gap 11 mmol/L; Calcium 9.6 mg/dL (8.4-10.2); Carbon Dioxide 26 mmol/L (22-30); Chloride 94 mmol/L (98-107); Glucose 108 mg/dL (74-99); Non-African American GFR(MDRD) >60 (>60 ml/min/1.73 sqM); Sodium 131 mmol/L (137-145); Total Bilirubin 0.5 mg/dL (0.2-1.3); Total Protein 6.9 g/dL (6.3-8.2)
[2016-06-06 09:04] LABS: ALT 28 U/L (9-52); AST 24 U/L (14-36); Alkaline Phosphatase 73 U/L (38-126); Blood Urea Nitrogen 13 mg/dL (7-17); Potassium 4.1 mmol/L (3.5-5.1)
--- NOTE | 2016-06-06 09:05 | XR ---
EXAMINATION TYPE: XR chest 2V DATE OF EXAM: 06/06/2016 8:59 AM COMPARISON: 04/17/2016 HISTORY: Dizziness TECHNIQUE: Frontal and lateral views of the chest are obtained. FINDINGS: Heart and mediastinum are normal. There is a minimal infiltrate at the lateral left lung b ase. The other lung anguiano are clear. There is no heart failure. There is a right shoulder prosthesis . IMPRESSION: New mild pneumonia at the left lung base. Normal heart.
--- NOTE | 2016-06-06 09:07 | XR ---
EXAMINATION TYPE: XR KUB DATE OF EXAM: 06/06/2016 8:59 AM COMPARISON: 05/16/2016 HISTORY: Nausea and vomiting TECHNIQUE: 2 views FINDINGS: There is no sign of intestinal obstruction or pneumoperitoneum. There is no evidence of a m ass. There is a relative lack of fecal material. There are clips from tubal ligation. There are clips from cholecystectomy. There are no pathologic calcifications over the kidneys. IMPRESSION: Nonacute abdomen. No adverse change compared to old exam.
[2016-06-06] MEDS ORDERED: MORPHINE SULFATE 4 MG/ML SYRINGE IVP STA (10:03)
[2016-06-06] MEDS ORDERED: CLINDAMYCIN 600 MG in DEXTROSE 5% IN WATER 50 ML IVPB STA ×2 (10:43)
[2016-06-06 10:49] LABS: Amorphous Sediment,Urine Rare /hpf; Appearance,Urine Clear (Clear); Bilirubin,Urine Negative (Negative); Glucose,Urine (UA) Negative (Negative); Ketones,Urine Trace (Negative); Leukocyte Esterase,Urine Negative (Negative); Mucus,Urine Rare /hpf; Nitrite,Urine Negative (Negative); PH, Urine 8.5 (5.0-8.0); Particle Count 4223; Protein,Urine 1+ (Negative); RBC,Urine 15 /hpf (0-5); Specific Gravity,Urine 1.008 (1.001-1.035); Squamous Epithelial Cell,Urine <1 /hpf (0-4); UA Billing (MACRO vs. MICRO) MICRO; Urobilinogen,Urine <2.0 mg/dL (<2.0)
[2016-06-06] MEDS ORDERED: HYDROCORTISONE SUCCINATE 100 MG/2 ML VIAL IV STA (11:37)
[2016-06-06] MEDS ORDERED: ACETAMINOPHEN TAB 325 MG TAB PO PRN (12:09)
[2016-06-06] MEDS ORDERED: MORPHINE SULFATE 4 MG/ML SYRINGE IV PRN (12:09)
[2016-06-06] MEDS ORDERED: NALOXONE 0.4 MG/ML 1 ML VIAL IV PRN (12:09)
[2016-06-06] MEDS ORDERED: ACETAMINOPHEN TAB 500 MG TAB PO PRN (12:17)
[2016-06-06] MEDS ORDERED: ALBUTEROL NEBULIZED 2.5 MG/3 ML INHALATION PRN (12:17)
[2016-06-06] MEDS ORDERED: MAG HYDROX/AL HYDROX/SIMETH 30 ML CUP PO PRN (12:17)
[2016-06-06] MEDS ORDERED: ONDANSETRON ODT 4 MG TAB PO PRN (12:17)
[2016-06-06] MEDS ORDERED: PROMETHAZINE 25 MG TAB PO PRN (12:17)
[2016-06-06] MEDS ORDERED: DIPHENOX-ATROP 2.5-0.025 MG 1 EACH TAB PO PRN (12:17)
[2016-06-06] MEDS ORDERED: METHOCARBAMOL 750 MG TAB PO PRN (12:17)
[2016-06-06] MEDS ORDERED: LOPERAMIDE 2 MG CAP PO PRN (12:17)
--- NOTE | 2016-06-06 14:06 | NM ---
EXAMINATION TYPE: NM pul vent and perfuse DATE OF EXAM: 06/06/2016 2:03 PM COMPARISON: NONE HISTORY: TECHNIQUE: Utilizing inhalation of 71.5 mCi Tc 99m DTPA aerosol and intravenous injection of 5.5 mCi of Tc 99m MAA, ventilation and perfusion images are acquired post injection in multiple projections. FINDINGS: Normal radiotracer distribution is noted in the lungs. There is no evidence of mismatched defects. IMPRESSION: Normal lung scan. There is a very low probability of pulmonary embolism.
[2016-06-06 15:11] VITALS: BMI 29.5
[2016-06-06] MEDS: SUCRALFATE 1 GM TAB PO SCH ×2 (15:40→17:56)
[2016-06-06] MEDS: DICYCLOMINE 20 MG TAB PO SCH ×3 (15:41→20:48)
[2016-06-06] MEDS: ASPIRIN-ACET-CAFF 250-250-65MG 1 EACH TAB PO PRN (15:41)
[2016-06-06] MEDS: GABAPENTIN 300 MG CAP PO SCH ×2 (17:56→20:46)
[2016-06-06] MEDS: ONDANSETRON 4 MG/2 ML VIAL IVP PRN ×2 (18:03→23:50)
[2016-06-06] MEDS: HYDROcodone/APAP 5-325MG 1 EACH TAB PO PRN (20:44)
[2016-06-06] MEDS: PROPRANOLOL 20 MG TAB PO SCH (20:46)
[2016-06-06] MEDS: ATORVASTATIN 20 MG TAB PO SCH (20:46)
[2016-06-06] MEDS: DIVALPROEX 250 MG TABLET.DR PO SCH (20:47)
[2016-06-06] MEDS: FAMOTIDINE 20 MG TAB PO SCH (20:47)
[2016-06-06] MEDS: ALBUTEROL NEBULIZED 2.5 MG/3 ML INHALATION SCH (20:55)
[2016-06-06] MEDS ORDERED: PANTOPRAZOLE 40 MG TABLET PO SCH (21:00)
[2016-06-07] MEDS: ALBUTEROL NEBULIZED 2.5 MG/3 ML INHALATION PRN ×2 (00:22→23:35)
[2016-06-07] MEDS: CLINDAMYCIN 600 MG in DEXTROSE 5% IN WATER 50 ML IVPB SCH ×10 (01:46→23:45)
[2016-06-07] MEDS: HYDROcodone/APAP 5-325MG 1 EACH TAB PO PRN ×4 (01:46→17:41)
[2016-06-07] MEDS: ALBUTEROL NEBULIZED 2.5 MG/3 ML INHALATION SCH ×3 (06:13→19:12)
[2016-06-07 07:53] LABS: Basophils # (A) 0.1 k/uL (0-0.2); Basophils % (A) 1 %; CH 32.8; CHCM 33.8; Eosinophils # (A) 0.1 k/uL (0-0.7); Eosinophils % (A) 1 %; HCT 30.4 % (34.0-46.0); HDW 2.53; HGB 10.3 gm/dL (11.4-16.0); Luc # (Auto) 0.31; Luc % (Auto) 3; Lymphocytes # (A) 3.9 k/uL (1.0-4.8); Lymphocytes % (A) 39 %; MCH 32.8 pg (25.0-35.0); MCHC 33.7 g/dL (31.0-37.0); MCV 97.4 fL (80.0-100.0); Mean Platelet Volume 7.5; Monocytes # (A) 0.7 k/uL (0-1.0); Monocytes % (A) 7 %; Neutrophils # (A) 4.9 k/uL (1.3-7.7); Neutrophils % (A) 49 %; RBC 3.12 m/uL (3.80-5.40); RDW 13.4 % (11.5-15.5); WBC 9.9 k/uL (3.8-10.6)
[2016-06-07 08:05] LABS: ALT 23 U/L (9-52); AST 15 U/L (14-36); Alkaline Phosphatase 57 U/L (38-126); Anion Gap 7 mmol/L; Blood Urea Nitrogen 9 mg/dL (7-17); Calcium 9.1 mg/dL (8.4-10.2); Carbon Dioxide 26 mmol/L (22-30); Chloride 100 mmol/L (98-107); Glucose 88 mg/dL (74-99); Non-African American GFR(MDRD) >60 (>60 ml/min/1.73 sqM); Potassium 4.7 mmol/L (3.5-5.1); Sodium 133 mmol/L (137-145); Total Bilirubin 0.3 mg/dL (0.2-1.3); Total Protein 5.7 g/dL (6.3-8.2)
--- NOTE | 2016-06-07 08:35 | US ---
EXAMINATION TYPE: US abdomen complete DATE OF EXAM: 06/07/2016 8:17 AM COMPARISON: US, CT on PACS CLINICAL HISTORY: Pain, GB removed years ago. EXAM MEASUREMENTS: Liver Length: 16.9 cm cm Gallbladder Wall: Surgically absent cm CBD: 0.7 cm Spleen: 8.8 cm Right Kidney: 12.1 x 4.5 x 3.5 cm Left Kidney: 10.9 x 4.9 x 4.8 cm Pancreas: Tail obscured by overlying bowel gas, Duct = 0.2 cm Liver: wnl Gallbladder: Surgically absent Evidence for sonographic Swain's sign: no CBD: wnl Spleen: Partially Obscured by overlying bowel gas. wnl Right Kidney: wnl Left Kidney: wnl Upper IVC: wnl Abd Aorta: wnl IMPRESSION: 1. LIMITED VIEWS OF THE PANCREAS. 2. STATUS POST CHOLECYSTECTOMY.
--- NOTE | 2016-06-07 10:19 | HP ---
DATE OF ADMISSION: 06/06/2016 CHIEF COMPLAINT: Abdominal pain, nausea. HISTORY OF PRESENT ILLNESS: Ms. Costello is a 45-year-old female with a known history of hyperlipidemia, GERD, anxiety, depression and substance abuse, who was recently discharged from [facility] and sent to the mental health clinic about a week ago. She came to the hospital with complaints of nausea, vomiting, abdominal pain. Patient previously stated that she had more than 20 episodes of emesis over the last couple of days. The patient states that the emesis is nonbloody and associated with abdominal pain, mainly generalized. Patient had vague symptoms. Patient has had multiple abdominal surgeries including cholecystectomy, hysterectomy and tubal ligation. Otherwise patient complaining of subjective fevers at home and chills. No fever. No ( ). The patient does have a slightly elevated WBC count of 12.6 in the hospital. Patient had a chest x-ray in the ER done, it showed mild left lower lobe pneumonia. The patient has multiple allergies including PENICILLIN, CIPROFLOXACIN. She was started on clindamycin. Otherwise the patient denied any headache or dizziness. The patient is requesting IV pain medications. REVIEW OF SYSTEMS: CONSTITUTIONAL: The patient says that she has fevers and chills at home and weakness. RESPIRATORY: No cough or sputum production. Patient denied any shortness of breath. CARDIOVASCULAR: No chest pain or shortness of breath. No leg swelling. ABDOMEN: Patient does have nausea and vomiting and abdominal pain. GENITOURINARY: Negative. ENDOCRINE: Negative. PSYCHIATRIC: Pain medication seeking, anxious. SKIN: Negative. All other 14-point review of systems negative except as above. PAST MEDICAL HISTORY: GERD, hyperlipidemia, shortness of breath, gastritis, IBS, history of Clostridium difficile. PAST SURGICAL HISTORY: Cholecystectomy, hysterectomy, orthopedic surgery, tonsillectomy, tubal ligation, bilateral shoulder surgery x2, right cataract surgery, partial hysterectomy, back surgery to remove skin tags. PSYCHOSOCIAL HISTORY: Bipolar, depression. Denies suicidal ideation. Patient says that she was recently admitted to inpatient psychiatric unit about a week back from [facility]. SOCIAL HISTORY: Patient is a former smoker, smokes about 1-1/2 to 2 packs per day for 30 years and quit last weekend, as per the patient. Denied any marijuana use. Denied any drugs. The patient has a cat at home. The patient states that she has a history of narcotic abuse years ago. FAMILY HISTORY: Mother has cancer. Father had no reported history except history of cerebral palsy and at the age of 57. No major medical problems. ALLERGIES: AMPICILLIN, AZITHROMYCIN, IODINATED CONTRAST MEDIUM, METRONIDAZOLE, PENICILLIN, OMEPRAZOLE, KEFLEX, CIPROFLOXACIN. HOME MEDICATIONS: 1. Protonix. 2. Zocor. 3. Robaxin. 4. Bentyl. 5. Excedrin. 6. Gabapentin. 7. Famotidine. 8. Ropinirole. 9. Sucralfate. 10. Tylenol. 11. Albuterol nebulizer. 12. Cetirizine. 13. Maalox. 14. Promethazine. 15. Lomotil. 16. Divalproex. 17. Imodium. PHYSICAL EXAMINATION: A 45-year-old female, lying in bed. Awake, alert, oriented, x3. He appears in no apparent distress. VITALS: Blood pressure is 131/77, pulse is 81, respirations 14, temperature afebrile, pulse ox 98% on room air. HEENT: Atraumatic, normocephalic. NECK: Supple. No JVD. CVS: S1, S2 heard. No murmurs, no gallop, no rub. LUNGS: Bilateral air entry is present. Decreased breath sounds basally. Nonlabored breathing. No wheezing. ABDOMEN: Soft, nontender. Bowel sounds present. 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 No focal deficit. EXTREMITIES: No edema. Pulses palpable. PSYCHIATRIC: Cooperative, anxious. LABORATORY DATA: WBC 12.6, hemoglobin 11.7, platelets 394, sodium 131, potassium 4.1, chloride 94, bicarb is 26. BUN 13, creatinine 0.74, blood sugar is 108. Liver enzymes not elevated. Cortisol level is 21. UA negative for infection. KUB x-ray, nonacute abdomen, no ( ) changes compared to old exam. Chest x-ray, new mild pneumonia at the left lung base, normal heart. IMPRESSION: 1. Left lower lobe pneumonia, mild as per chest x-ray. The patient will be continued on clindamycin, as the patient has multiple allergies as discussed above. The patient does not have any cobblestone production at this time. VQ scan is negative for very low probability for pulmonary embolism. 2. Gastroesophageal reflux disease. 3. Anxiety, depression and bipolar disorder. 4. History of narcotic pain medication abuse. 5. Polysubstance abuse history. 6. Nicotine addiction. 7. Hyperlipidemia. 8. Hypovolemic hyponatremia. 9. Deep venous thrombosis prophylaxis, heparin subcutaneous. 10. Nausea, vomiting, abdominal pain, possible gastritis. DISCUSSION AND PLAN: The patient will be continued on antiemetics. The patient was given IV fluids. Tolerating p.o. diet now. Continue the pain management. Continue antibiotics. Continue home medications and follow up closely. Repeat lab work-up in the morning. Further recommendations based on the clinical course. The patient was counseled extensively for smoking cessation.
[2016-06-07] MEDS: DICYCLOMINE 20 MG TAB PO SCH ×4 (12:35→20:42)
[2016-06-07] MEDS: SUCRALFATE 1 GM TAB PO SCH ×3 (12:35→17:43)
[2016-06-07] MEDS: PROPRANOLOL 20 MG TAB PO SCH ×2 (12:38→20:41)
[2016-06-07] MEDS: ESCITALOPRAM 10 MG TAB PO SCH (12:38)
[2016-06-07] MEDS: GABAPENTIN 300 MG CAP PO SCH ×3 (12:39→20:41)
[2016-06-07] MEDS: LORATADINE 10 MG TAB PO SCH (12:39)
[2016-06-07] MEDS: PANTOPRAZOLE 40 MG/10 ML VIAL IV SCH (12:39)
[2016-06-07] MEDS: ONDANSETRON 4 MG/2 ML VIAL IVP PRN ×2 (12:42→20:44)
[2016-06-07] MEDS: FAMOTIDINE 20 MG TAB PO SCH ×2 (12:58→20:41)
--- NOTE | 2016-06-07 16:41 | CONS ---
DATE OF CONSULTATION: Patient is known to have long-standing history of hyperlipidemia, GERD syndrome and depression. Patient was recently discharged from [facility] with history of substance abuse ( ) came in with abdominal pain, nausea and some atypical chest pains. Patient has ( ) type of symptoms. Patient also noted to have lower lobe pneumonia, which may be contributing to some of her symptoms. EKGs are normal. Troponin x1 is negative. In view of paucity of symptoms cardiac-dominguez, we will probably get an echocardiogram and will let the other doctors take care of her primary problems of abdominal pain, nausea. Went through extensive workup. ALLERGIES: 1. PENICILLIN. 2. CIPROFLOXACIN. 3. IODINATED CONTRAST AGENTS. 4. METRONIDAZOLE. 5. OMEPRAZOLE. Patient's review of systems is essentially unremarkable other than nausea, vomiting, and patient is on inhalers. She is a smoker; smokes about one and a half to two packs of cigarettes per day. Patient has bipolar depression. Patient's past history remarkable for: 1. Cholecystectomy. 2. Hysterectomy. 3. Orthopedic surgery. 4. Tonsillectomy. 5. Tubal ligation. 6. Bilateral shoulder surgery x2. 7. Right cataract surgery. 8. Partial hysterectomy. Patient's home medications are: 1. Zocor. 2. Protonix. 3. Bentyl. 4. Robaxin. 5. Excedrin. 6. Gabapentin. 7. Famotidine. 8. Ropinirole. 9. Sucralfate. 10. Tylenol. 11. Albuterol inhaler. 12. Maalox. 13. Promethazine. 14. Lomotil. 15. Imodium. Physical examination revealed a well-developed, well-nourished 45-year-old female not in acute distress, oriented x3, with a pulse rate of 80 beats per minute and regular, blood pressure of 130/77, respirations of 16. Head normocephalic. HEENT unremarkable. Neck is supple. No thyroid enlargement. No bruit noted. Good carotid upstroke bilaterally. Chest is symmetrical. CARDIAC EXAMINATION: Scattered rhonchi and mild wheezing noted, generalized. Abdomen is soft. No organomegaly. Active bowel sounds. EXTREMITIES: Decreased pedal pulses. No pedal edema. 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 ASSESSMENT: 1. Atypical chest pains, not suggestive of angina, with left lower lobe pneumonia and abdominal pain. 2. V/Q scan has been already proven negative for pulmonary embolism. 3. Gastroesophageal reflux. 4. History of bipolar depression. 5. History of substance abuse. RECOMMENDATIONS: Will get an echocardiogram to assess LV function. No further cardiac recommendations at the present time. Will consider a stress test as an outpatient if symptoms persist.
[2016-06-07] MEDS: DIVALPROEX 250 MG TABLET.DR PO SCH (20:41)
[2016-06-07] MEDS: ATORVASTATIN 20 MG TAB PO SCH (20:42)
[2016-06-07] MEDS: ASPIRIN-ACET-CAFF 250-250-65MG 1 EACH TAB PO PRN (21:46)
[2016-06-08] MEDS: CLINDAMYCIN 600 MG in DEXTROSE 5% IN WATER 50 ML IVPB SCH ×6 (05:13→18:07)
[2016-06-08] MEDS: ALBUTEROL NEBULIZED 2.5 MG/3 ML INHALATION SCH ×2 (07:19→12:56)
[2016-06-08] MEDS: DICYCLOMINE 20 MG TAB PO SCH ×3 (08:09→18:07)
[2016-06-08] MEDS: SUCRALFATE 1 GM TAB PO SCH ×3 (08:09→17:55)
[2016-06-08] MEDS: PANTOPRAZOLE 40 MG/10 ML VIAL IV SCH (08:09)
[2016-06-08] MEDS: LORATADINE 10 MG TAB PO SCH (08:10)
[2016-06-08] MEDS: PROPRANOLOL 20 MG TAB PO SCH (08:10)
[2016-06-08] MEDS: GABAPENTIN 300 MG CAP PO SCH ×2 (08:10→17:55)
[2016-06-08] MEDS: ESCITALOPRAM 10 MG TAB PO SCH (08:10)
[2016-06-08] MEDS: FAMOTIDINE 20 MG TAB PO SCH (08:10)
[2016-06-08] MEDS: ONDANSETRON 4 MG/2 ML VIAL IVP PRN (08:11)
[2016-06-08] MEDS: HYDROcodone/APAP 5-325MG 1 EACH TAB PO PRN (08:11)
[2016-06-08 08:33] VITALS: RESP 18
--- NOTE | 2016-06-08 10:40 | PN ---
DATE OF SERVICE: 06/07/2016 INTERVAL HISTORY: Mrs. Connolly is a 45-year-old male with a known history of multiple medical problems including depression and substance abuse and anxiety, admitted to hospital with chest pain, along with nausea and vomiting. Patient found to have left lower lobe pneumonia, currently being treated with clindamycin due to multiple antibiotic allergies. Otherwise, the patient was seen by cardiology and no further cardiac elevation recommended. ( ) was ordered to evaluate ( ). Otherwise, patient is still complaining of pain and requesting pain medications. No fever. No chills. No acute overnight issues. The patient was concerned about 2-D echo report. Anticipate discharge tomorrow with more clinical improvement. REVIEW OF SYSTEMS: The patient is anxious. Patient does have chest pain. No short of breath. No leg swelling. No nausea or vomiting, abdominal pain. All other fourteen-point review of systems negative except as above. Current medications are reviewed. PHYSICAL EXAMINATION: A 45 -year-old female, lying in bed comfortably, awake, alert, oriented, x3. Appears to be in no apparent distress. VITALS: Blood pressure is 118/75, pulse is 63, respiratory rate 16, temperature afebrile. Pulse ox 98% on room air. HEENT: Atraumatic, normocephalic. Neck is supple. No JVD. CVS: S1, S2 heard. No murmurs, no gallop. LUNGS: Bilateral air entry is present. Decreased breath sounds basally. Nonlabored breathing. ABDOMEN: Soft, nontender. Bowel sounds present. CENTRAL NERVOUS SYSTEM: Awake, alert and oriented times three. No focal deficits. EXTREMITIES: No edema. Pulses palpable bilaterally. No clubbing or cyanosis. PSYCHIATRIC: Cooperative, anxious. LABORATORY DATA: WBC 9.9, hemoglobin 10.3, platelets 330, sodium 133, potassium 4.7, chloride 100, bicarb is 26. BUN 9, creatinine 0.73, albumin 3.1. UA negative for infection. Ultrasound of the abdomen limited views of the pancreas, status post cholecystectomy and VQ scan showed very low probability for pulmonary embolism. ASSESSMENT: 1. Left lower lobe pneumonia as per chest x-ray, continue with Clindamycin due to multiple allergies to medications and antibiotics. 2. Chest pain, rule out acute coronary syndrome awaiting TTE. 3. VQ scan negative for any pulmonary embolism. VQ scan showed very low probability of pulmonary embolism. 4. Gastroesophageal reflux disease. 5. Anxiety, depression and bipolar disorder. 6. History of narcotic pain medication abuse. 7. Polysubstance abuse history. 8. Nicotine addiction. 9. Hyperlipidemia. 10. Hypovolemic hyponatremia. 11. Nausea, or vomiting, abdominal pain on admission, possible gastritis, improved now, resolved now. 12. Deep venous thrombosis prophylaxis, heparin subcu. DISCUSSION AND PLAN: Patient will be continued on current management. Continue with antibiotics, tolerating p.o. diet and continue the pain management and anticipate discharge tomorrow and with more clinical improvement and TTE report. Further recommendations based on clinical course.
[2016-06-08] MEDS: ASPIRIN-ACET-CAFF 250-250-65MG 1 EACH TAB PO PRN (12:02)
[2016-06-08 12:05] VITALS: BP 125/67; TEMP 98.9
--- NOTE | 2016-06-08 13:00 | ECHOF ---
Referral Reason:lv function MEASUREMENTS -------- HEIGHT: 152.4 cm WEIGHT: 70.8 kg BP: IVSd: 1.3 cm (0.6 - 1.1) LVIDd: 4.4 cm (3.9 - 5.3) LVPWd: 1.5 cm (0.6 - 1.1) IVSs: 1.3 cm LVIDs: 3.3 cm LVPWs: 1.0 cm LA Diam: 3.6 cm (2.7 - 3.8) Ao Diam: 3.1 cm (2.0 - 3.7) AV Cusp: 1.6 cm (1.5 - 2.6) LA Diam: 2.9 cm (2.7 - 3.8) MV EXCURSION: 20.347 mm (> 18.000) MV EF SLOPE: 87 mm/s (70 - 150) EPSS: 0.2 cm MV E Nicola: 0.71 m/s MV DecT: 118 ms MV A Nicola: 0.82 m/s MV E/A Ratio: 0.87 RAP: 5.00 mmHg RVSP: 27.32 mmHg FINDINGS -------- Sinus rhythm. This was a technically adequate study. The left ventricular size is normal. There is moderate concentric left ventricular hypertrophy. Overall left ventricular systolic function is normal with, an EF between 55 - 60 %. The right ventricle is normal in size. The left atrial size is normal. The right atrial size is normal. The aortic valve is trileaflet and appears structurally normal. There is no evidence of aortic regurgitation. The mitral valve is normal. Mild mitral regurgitation is present. Mild tricuspid regurgitation present. There is no evidence of pulmonary hypertension. The right ventricular systolic pressure, as measured by Doppler, is 27.32mmHg. There is no pulmonic regurgitation present. The aortic root size is normal. There is no pericardial effusion. CONCLUSIONS -------- 1. Sinus rhythm. 2. There is no pulmonic regurgitation present. 3. This was a technically adequate study. 4. There is moderate concentric left ventricular hypertrophy. 5. Overall left ventricular systolic function is normal with, an EF between 55 - 60 %. 6. The left atrial size is normal. 7. The aortic valve is trileaflet and appears structurally normal. 8. Mild mitral regurgitation is present. 9. Mild tricuspid regurgitation present. 10. There is no evidence of pulmonary hypertension. CASH APPLICATION REPRESENTATIVE: Maria D Khan RDCS
[2016-06-08 13:03] VITALS: PULSE 72
--- NOTE | 2016-06-08 16:24 | P.DS ---
Providers Date of admission: 06/06/16 12:09 Attending physician: Cristine Javed Primary care physician: [facility] Course: 45-year-old female with multiple medical problems including depression and substance abuse comes into the hospital with complains of chest pain in the midsternal region radiating to the epigastric area. Patient apparently has a long history of GERD has been evaluated with an upper endoscopy within the last [address] Espinal out of [facility]. Patient was noted to have an EKG with no ST-T wave changes. However with concern for ACS patient was admitted. Initial troponin was negative. Echocardiogram done was within normal limits including a EF of 55-60% without any wall motion abnormality is. Patient apparently was noted to have a left lower lobe infiltrate however patient denies having any cough fevers chills nausea vomiting. Patient was started on clindamycin. Physical exam Gen. appearance oriented 3 in no distress Neck is supple no JVD Lungs good air entry clear to auscultation no rhonchi or wheezing Heart S1-S2 heard regular rate and rhythm no murmurs appreciated Abdomen is soft nontender no organomegaly bowel sounds are intact Neurologically cranial nerves II-12 grossly intact no focal motor or sensory deficits noted Skin no abnormalities appreciated Discharge diagnoses #1 atypical chest pain ACS was ruled out #2 GERD #3 anxiety #4 major depression #5 history of polysubstance use #6 distal. #7 hypovolemic hyponatremia #8 even though there is an infiltrate I do not suspect the patient has a clinical pneumonia will not treat the patient for the left lower lobe changes on the chest x-ray. Plan - Discharge Summary New Discharge Prescriptions: Clindamycin [Cleocin] 300 mg PO Q6H 6 Days HYDROcodone/APAP 5-325MG [[place] 5-325] 1 each PO Q4HR PRN #20 tab PRN Reason: Pain rated 1-5. Mag Hydrox/Al Hydrox/Simeth [Maalox] 30 ml PO Q6H PRN 7 Days PRN Reason: Gi Upset Discharge Medication List Pantoprazole Sodium 40 mg PO BID 12/13/13 [History] Simvastatin [Zocor] 40 mg PO HS 10/04/14 [History] Methocarbamol [Robaxin] 750 mg PO TID PRN 02/20/15 [History] Dicyclomine [Bentyl] 20 mg PO QID 07/07/15 [History] [id number] [Excedrin] 2 tab PO Q6HR PRN 01/16/16 [History] Gabapentin 600 mg PO TID 02/24/16 [History] Famotidine [Pepcid] 20 mg PO BID 04/19/16 [History] Propranolol HCl [Inderal] 60 mg PO BID 04/19/16 [History] Sucralfate [Carafate] 1 gm PO AC-TID 04/19/16 [History] Acetaminophen Tab [Tylenol] 1,000 mg PO TID PRN 05/16/16 [History] Albuterol Nebulized [Ventolin Nebulized] 2.5 mg INHALATION RT-TID PRN 05/16/16 [ History] Cetirizine HCl [Zyrtec] 10 mg PO DAILY 05/16/16 [History] Ondansetron Odt [Zofran ODT] 4 mg PO Q8HR PRN #5 tab 05/16/16 [Rx] Promethazine HCl 12.5 mg PO Q6H PRN 05/18/16 [History] Diphenox-Atrop 2.5-0.025 mg [Lomotil] 1 tab PO TID PRN 05/30/16 [History] Divalproex [Depakote] 250 mg PO HS 05/30/16 [History] Loperamide [Imodium] 2 mg PO Q4H PRN 05/30/16 [History] Escitalopram [Lexapro] 10 mg PO DAILY #30 tab 06/02/16 [Rx] Clindamycin [Cleocin] 300 mg PO Q6H 6 Days 06/07/16 [Rx] HYDROcodone/APAP 5-325MG [[place] 5-325] 1 each PO Q4HR PRN #20 tab 06/07/16 [Rx] Mag Hydrox/Al Hydrox/Simeth [Maalox] 30 ml PO Q6H PRN 7 Days 06/07/16 [Rx] Follow up Appointment(s)/Referral(s): [facility], [NON-STAFF] - 1 Week Antonia Grimes MD [Primary Care Provider] - 1-2 days Activity/Diet/Wound Care/Special Instructions: Call Ana MENON [phone] upon discharge to request activating the home health program. Message left with Ana by damien on 06/08/16 Discharge Disposition: HOME SELF-CARE
== END 2016-06-08 18:12 | disposition home or self-care (01) ==
LOC: EC 07:24 → 3OBS 12:09
PROVIDERS: ADMIT Hospitalist; ATTEND Hospitalist
DX: J18.9 Pneumonia, unspecified organism (principal)
CPT/HCPCS: 96375 ×4; 96376 ×3; 96361 ×6; 96374 ×2; 99285 ×2; 36415; 94640 ×5; 93005; 93306; 80053 ×2; 82533; 82150; 83690; 84484; 85025 ×2; 81001; 71020; 74000; 76700; 78582; G0378 ×3; A9540; A9567; J2270; J1720; J2405 ×3; C9113 ×2; 96365; 96366; 99291

== ENCOUNTER 2016-06-09 13:50 | Emergency (ER) | payer OTHER ==
[2016-06-09] MEDS ORDERED: MORPHINE SULFATE 4 MG/ML SYRINGE IV STA (14:37)
[2016-06-09] MEDS ORDERED: SODIUM CHLORIDE 0.9% 500 ML IV STA (14:37)
--- NOTE | 2016-06-09 14:46 | ED ---
General Adult HPI - General Chief complaint: Abdominal Pain Stated complaint: abd pain Time Seen by Provider: 06/09/16 14:00 Source: patient, EMS, RN notes reviewed Mode of arrival: EMS Limitations: no limitations - History of Present Illness Initial comments: This is a 45-year-old female presents emergency department stating that she has just been released from the hospital couple days ago and felt good yesterday. Patient states she comes back in today because she started vomiting and having abdominal pain again. Patient was sleeping in the room when I entered had to wake her up by shaking her. Patient states she wants to be admitted to the medical floor if I cannot admitted to the medical floor she'll want to be admitted to psych because she'll be suicidal because she does not want to go back to her apartment because she believes her apartment is what is making her ill. Patient denies any fever chills or diarrhea. Patient denies any chest pain or difficulty breathing. Patient denies any headache patient denies numbness weakness. Patient denies any trauma. Patient denies dysuria hematuria urinary frequency. - Related Data Home Medications Medication Instructions Recorded Confirmed Pantoprazole Sodium 40 mg PO BID 12/13/13 06/09/16 Simvastatin [Zocor] 40 mg PO HS 10/04/14 06/09/16 Methocarbamol [Robaxin] 750 mg PO TID PRN 02/20/15 06/09/16 Dicyclomine [Bentyl] 20 mg PO QID 07/07/15 06/09/16 [id number] 2 tab PO Q6HR PRN 01/16/16 06/09/16 [Excedrin] Gabapentin 600 mg PO TID 02/24/16 06/09/16 Famotidine [Pepcid] 20 mg PO BID 04/19/16 06/09/16 Propranolol HCl [Inderal] 60 mg PO BID 04/19/16 06/09/16 Sucralfate [Carafate] 1 gm PO AC-TID 04/19/16 06/09/16 Acetaminophen Tab [Tylenol] 1,000 mg PO TID PRN 05/16/16 06/09/16 Albuterol Nebulized [Ventolin 2.5 mg INHALATION RT-TID PRN 05/16/16 06/09/16 Nebulized] Cetirizine HCl [Zyrtec] 10 mg PO DAILY 05/16/16 06/09/16 Promethazine HCl 12.5 mg PO Q6H PRN 05/18/16 06/09/16 Diphenox-Atrop 2.5-0.025 mg 1 tab PO TID PRN 05/30/16 06/09/16 [Lomotil] Divalproex [Depakote] 250 mg PO HS 05/30/16 06/09/16 Loperamide [Imodium] 2 mg PO Q4H PRN 05/30/16 06/09/16 HYDROcodone/APAP 5-325MG [[place] 1 tab PO Q4HR PRN 06/09/16 06/09/16 5-325] Previous Rx's Medication Instructions Recorded Ondansetron Odt [Zofran ODT] 4 mg PO Q8HR PRN #5 tab 05/16/16 Escitalopram [Lexapro] 10 mg PO DAILY #30 tab 06/02/16 Mag Hydrox/Al Hydrox/Simeth 30 ml PO Q6H PRN 7 Days 06/07/16 [Maalox] Allergies Allergy/AdvReac Type Severity Reaction Status Date / Time ampicillin Allergy Unknown Verified 06/09/16 14:07 azithromycin Allergy Unknown Verified 06/09/16 14:07 Iodinated Contrast Media - Allergy Rash/Hives Verified 06/09/16 14:07 Oral and [Iodinated Contrast Media - IV Dye] metronidazole [From Flagyl] Allergy Unknown Verified 06/09/16 14:07 Penicillins Allergy Unknown Verified 06/09/16 14:07 aripiprazole [From Abilify] AdvReac Nausea & Verified 06/09/16 14:07 Vomiting cephalexin monohydrate AdvReac Nausea & Verified 06/09/16 14:07 [From Keflex] Vomiting ciprofloxacin [From Cipro] AdvReac Nausea & Verified 06/09/16 14:07 Vomiting Review of Systems ROS Statement: Those systems with pertinent positive or pertinent negative responses have been documented in the HPI. ROS Other: All systems not noted in ROS Statement are negative. Past Medical History Past Medical History: GERD/Reflux, Hyperlipidemia Additional Past Medical History / Comment(s): substance abuse-pt states she doesn't remember, ibs, gastritis. substance abuse History of Any Multi-Drug Resistant Organisms: C-DIFF Date of last positivie culture/infection: 2011 MDRO Source:: stool Past Surgical History: Cholecystectomy, Hysterectomy, Orthopedic Surgery, Tonsillectomy, Tubal Ligation Additional Past Surgical History / Comment(s): right eye cataract, bilateral shoulder surgery x2, right knee surgry, partial hysterectomy, back surgery was to remove skin tags. Past Anesthesia/Blood Transfusion Reactions: No Reported Reaction Past Psychological History: Bipolar, Depression Additional Psychological History / Comment(s): Pt states she has had increased depression lately r/t health issues. She denies suicidal thoughts or plans. She does not wich to be . She does not have any pychiatric care. She has paper work which she is having difficulty completing it is for "Adult services" . She resides alone and has a cat. 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 Smoking Status: Former smoker Past Alcohol Use History: None Reported Additional Past Alcohol Use History / Comment(s): Patient was a smoker one and a half packs per day for 30 years and quit last weekend. She denies any medical marijuana, marijuana, street drug use. She does have history of narcotic abuse is currently receiving her medications on a regular basis from a physician in [facility]. She lives at home alone with her cat. She is currently . Past Drug Use History: None Reported Additional Drug Use History / Comment(s): Pt states she has hx of narcotic abuse but it was yrs ago. - Past Family History Mother Family Medical History: Cancer Additional Family Medical History / Comment(s): patient does not know history on her mother as they have had relationship on and off over the years. Father Family Medical History: No Reported History Additional Family Medical History / Comment(s): Father at age 57 with history of cerebral palsy Son(s) Additional Family Medical History / Comment(s): She has 2 sons with no major medical problems. She does not have any brothers or sisters. General Exam - General Exam Comments Initial Comments: GENERAL: Patient is well-developed and well-nourished. Patient is nontoxic and well- hydrated and is in no acute distress. Patient was sleeping why team into the room and needed to be awakened by physically shaking her ENT: Neck is soft and supple. No significant lymphadenopathy is noted. Oropharynx is clear. Moist mucous membranes. Neck has full range of motion without eliciting any pain. EYES: The sclera were anicteric and conjunctiva were pink and moist. Extraocular movements were intact and pupils were equal round and reactive to light. Eyelids were unremarkable. PULMONARY: Unlabored respirations. Good breath sounds bilaterally. No audible rales rhonchi or wheezing was noted. CARDIOVASCULAR: There is a regular rate and rhythm without any murmurs gallops or rubs. ABDOMEN: Patient has slight tenderness in the mid abdomen and is not consistent on multiple exams.. No palpable organomegaly was noted. There is no palpable pulsatile mass. SKIN: Skin is clear with no lesions or rashes and otherwise unremarkable. NEUROLOGIC: Patient is alert and oriented x3. Cranial nerves II through XII are grossly intact. Motor and sensory are also intact. Normal speech, volume and content. Symmetrical smile. MUSCULOSKELETAL: Normal extremities with adequate strength and full range of motion. No lower extremity swelling or edema. No calf tenderness. LYMPHATICS: No significant lymphadenopathy is noted PSYCHIATRIC: Patient states that if we don't admit her to either the medical floor the or the psychiatric floor she will be suicidal so she can stay in hospital because one back to her apartment Limitations: no limitations Course Vital Signs 06/09/16 06/09/16 13:54 15:59 Temperature 99.1 F 98.6 F Pulse Rate 83 80 Respiratory 16 16 Rate Blood Pressure 121/62 129/68 O2 Sat by Pulse 98 99 Oximetry Medical Decision Making - Lab Data Result diagrams: 06/09/16 14:25 06/09/16 14:25 Lab Results 06/09/16 06/09/16 06/09/16 Range/Units 14:25 14:25 14:25 WBC 12.5 H (3.8-10.6) k/uL RBC 3.63 L (3.80-5.40) m/uL Hgb 12.0 (11.4-16.0) gm/dL Hct 34.6 (34.0-46.0) % MCV 95.2 (80.0-100.0) fL MCH 33.2 (25.0-35.0) pg MCHC 34.9 (31.0-37.0) g/dL RDW 13.4 (11.5-15.5) % Plt Count 391 (150-450) k/uL Neutrophils % 75 % Lymphocytes % 17 % Monocytes % 6 % Eosinophils % 1 % Basophils % 0 % Neutrophils # 9.3 H (1.3-7.7) k/uL Lymphocytes # 2.1 (1.0-4.8) k/uL Monocytes # 0.8 (0-1.0) k/uL Eosinophils # 0.1 (0-0.7) k/uL Basophils # 0.0 (0-0.2) k/uL Sodium 130 L (137-145) mmol/L Potassium 3.9 (3.5-5.1) mmol/L Chloride 95 L (98-107) mmol/L Carbon Dioxide 23 (22-30) mmol/L Anion Gap 12 mmol/L BUN 9 (7-17) mg/dL Creatinine 0.68 (0.52-1.04) mg/dL Est GFR (MDRD) Af Amer >60 (>60 ml/min/1.73 sqM) Est GFR (MDRD) Non-Af >60 (>60 ml/min/1.73 sqM) Glucose 104 H (74-99) mg/dL Calcium 9.3 (8.4-10.2) mg/dL Total Bilirubin 0.5 (0.2-1.3) mg/dL AST 21 (14-36) U/L ALT 26 (9-52) U/L Alkaline Phosphatase 85 (38-126) U/L Total Protein 6.7 (6.3-8.2) g/dL Albumin 3.9 (3.5-5.0) g/dL Amylase 56 (30-110) U/L Lipase 101 (23-300) U/L Urine Color Yellow Urine Appearance Cloudy H (Clear) Urine pH 8.0 (5.0-8.0) Ur Specific [place] 1.010 (1.001-1.035) Urine Protein 2+ H (Negative) Urine Glucose (UA) Negative (Negative) Urine Ketones Negative (Negative) Urine Blood Moderate H (Negative) Urine Nitrite Negative (Negative) Urine Bilirubin Negative (Negative) Urine Urobilinogen <2.0 (<2.0) mg/dL Ur Leukocyte Esterase Negative (Negative) Urine RBC 47 H (0-5) /hpf Urine WBC 1 (0-5) /hpf Ur Squamous Epith Cells <1 (0-4) /hpf Amorphous Sediment Occasional H (None) /hpf Urine Mucus Rare H (None) /hpf Urine Opiates Screen Detected H (NotDetected) Ur Oxycodone Screen Not Detected (NotDetected) Urine Methadone Screen Not Detected (NotDetected) Ur Propoxyphene Screen Not Detected (NotDetected) Ur Barbiturates Screen Not Detected (NotDetected) U Tricyclic Antidepress Not Detected (NotDetected) Ur Phencyclidine Scrn Not Detected (NotDetected) Ur Amphetamines Screen Not Detected (NotDetected) U Methamphetamines Scrn Not Detected (NotDetected) U Benzodiazepines Scrn Not Detected (NotDetected) Urine Cocaine Screen Not Detected (NotDetected) U Marijuana (THC) Screen Not Detected (NotDetected) Disposition Clinical Impression: Situational depression, Abdominal pain Disposition: HOME SELF-CARE Instructions: Abdominal Pain (ED), Depression (ED) Referrals: Antonia Grimes MD [Primary Care Provider] - 1-2 days Time of Disposition: 17:17
[2016-06-09 14:59] LABS: Basophils % (A) 0 %; CH 33.7; CHCM 35.5; Eosinophils # (A) 0.1 k/uL (0-0.7); Eosinophils % (A) 1 %; HCT 34.6 % (34.0-46.0); HDW 2.59; Luc # (Auto) 0.17; Luc % (Auto) 1; Lymphocytes # (A) 2.1 k/uL (1.0-4.8); Lymphocytes % (A) 17 %; MCH 33.2 pg (25.0-35.0); MCHC 34.9 g/dL (31.0-37.0); MCV 95.2 fL (80.0-100.0); Mean Platelet Volume 6.8; Monocytes # (A) 0.8 k/uL (0-1.0); Monocytes % (A) 6 %; Neutrophils # (A) 9.3 k/uL (1.3-7.7); Neutrophils % (A) 75 %; RBC 3.63 m/uL (3.80-5.40); RDW 13.4 % (11.5-15.5); WBC 12.5 k/uL (3.8-10.6); WBC (Perox) 12.95
[2016-06-09 15:09] LABS: Amorphous Sediment,Urine Occasional /hpf; Appearance,Urine Cloudy (Clear); Bilirubin,Urine Negative (Negative); Glucose,Urine (UA) Negative (Negative); Ketones,Urine Negative (Negative); Leukocyte Esterase,Urine Negative (Negative); Mucus,Urine Rare /hpf; Nitrite,Urine Negative (Negative); Particle Count 8524; Protein,Urine 2+ (Negative); RBC,Urine 47 /hpf (0-5); Squamous Epithelial Cell,Urine <1 /hpf (0-4); UA Billing (MACRO vs. MICRO) MICRO; Urobilinogen,Urine <2.0 mg/dL (<2.0); WBC,Urine 1 /hpf (0-5)
[2016-06-09 15:10] LABS: ALT 26 U/L (9-52); AST 21 U/L (14-36); Alkaline Phosphatase 85 U/L (38-126); Amylase 56 U/L (30-110); Anion Gap 12 mmol/L; Blood Urea Nitrogen 9 mg/dL (7-17); Calcium 9.3 mg/dL (8.4-10.2); Carbon Dioxide 23 mmol/L (22-30); Chloride 95 mmol/L (98-107); Glucose 104 mg/dL (74-99); Non-African American GFR(MDRD) >60 (>60 ml/min/1.73 sqM); Potassium 3.9 mmol/L (3.5-5.1); Sodium 130 mmol/L (137-145); Total Bilirubin 0.5 mg/dL (0.2-1.3); Total Protein 6.7 g/dL (6.3-8.2)
--- NOTE | 2016-06-09 15:26 | XR ---
EXAMINATION TYPE: XR KUB DATE OF EXAM: 06/09/2016 3:19 PM COMPARISON: 06/06/2016 HISTORY: Pain TECHNIQUE: Single supine KUB image of the abdomen is obtained FINDINGS: Small bowel demonstrates mild distention with air-fluid levels. Gas and fecal material is seen in non-distended colon. No convincing evidence for pneumoperitoneum. No unusual calcifications. The lung bases are clear. The osseous structures are intact. IMPRESSION: 1. Nonspecific nonobstructive bowel gas pattern which may be on the basis of gastroenteritis. Correl ate clinically.
[2016-06-09 16:00] VITALS: TEMP 98.6
[2016-06-09] MEDS ORDERED: ONDANSETRON ODT 4 MG TAB PO STA (17:25)
[2016-06-09 17:37] VITALS: BP 141/81; PULSE 100; RESP 18
== END 2016-06-09 17:40 | disposition home or self-care (01) ==
LOC: EC 13:50
DX: F43.21 Adjustment disorder with depressed mood (principal); R10.9 Unspecified abdominal pain; E78.5 Hyperlipidemia, unspecified; K21.9 Gastro-esophageal reflux disease without esophagitis; F17.200 Nicotine dependence, unspecified, uncomplicated; Z88.1 Allergy status to other antibiotic agents; Z91.041 Radiographic dye allergy status; Z88.0 Allergy status to penicillin; Z88.8 Allergy status to other drugs, medicaments and biological substances; Z90.49 Acquired absence of other specified parts of digestive tract; Z79.899 Other long term (current) drug therapy
CPT/HCPCS: 99284; 96374; 96361 ×2; 82075; 36415; 80053; 82150; 83690; 85025; 81001; 80306; 74000; J2270

== ENCOUNTER 2016-06-12 09:09 | Emergency (ER) | payer OTHER ==
[2016-06-12 09:14] VITALS: RESP 16
--- NOTE | 2016-06-12 09:22 | ED ---
Lower Extremity Injury HPI - General Chief Complaint: Extremity Injury, Lower Stated Complaint: LEFT ANKLE INJURY FROM FALL Time Seen by Provider: 06/12/16 09:14 Source: patient Mode of arrival: wheelchair Limitations: no limitations - History of Present Illness Initial Comments: 45-year-old female patient presents to emergency department today for evaluation of left ankle pain. Patient states last night she was coming down some steps missed the last step and fell down. During the fall she did twist her ankle. She states she is having pain with inversion. Patient also reports abrasion to her right knee but denies any knee pain or difficulty with range of motion. Patient denies hitting her head or losing consciousness. GCS is 15. Patient denies any head, neck, or back pain. Denies any chest pain, shortness of breath, dizziness, weakness, abdominal pain, nausea, vomiting, diarrhea, dysuria, hematuria, urinary urgency, urinary frequency. Denies any fever or chills. - Related Data Home Medications Medication Instructions Recorded Confirmed Pantoprazole Sodium 40 mg PO BID 12/13/13 06/09/16 Simvastatin [Zocor] 40 mg PO HS 10/04/14 06/09/16 Methocarbamol [Robaxin] 750 mg PO TID PRN 02/20/15 06/09/16 Dicyclomine [Bentyl] 20 mg PO QID 07/07/15 06/09/16 [id number] 2 tab PO Q6HR PRN 01/16/16 06/09/16 [Excedrin] Gabapentin 600 mg PO TID 02/24/16 06/09/16 Famotidine [Pepcid] 20 mg PO BID 04/19/16 06/09/16 Propranolol HCl [Inderal] 60 mg PO BID 04/19/16 06/09/16 Sucralfate [Carafate] 1 gm PO AC-TID 04/19/16 06/09/16 Acetaminophen Tab [Tylenol] 1,000 mg PO TID PRN 05/16/16 06/09/16 Albuterol Nebulized [Ventolin 2.5 mg INHALATION RT-TID PRN 05/16/16 06/09/16 Nebulized] Cetirizine HCl [Zyrtec] 10 mg PO DAILY 05/16/16 06/09/16 Promethazine HCl 12.5 mg PO Q6H PRN 05/18/16 06/09/16 Diphenox-Atrop 2.5-0.025 mg 1 tab PO TID PRN 05/30/16 06/09/16 [Lomotil] Divalproex [Depakote] 250 mg PO HS 05/30/16 06/09/16 Loperamide [Imodium] 2 mg PO Q4H PRN 05/30/16 06/09/16 HYDROcodone/APAP 5-325MG [[place] 1 tab PO Q4HR PRN 06/09/16 06/09/16 5-325] Previous Rx's Medication Instructions Recorded Ondansetron Odt [Zofran ODT] 4 mg PO Q8HR PRN #5 tab 05/16/16 Escitalopram [Lexapro] 10 mg PO DAILY #30 tab 06/02/16 Mag Hydrox/Al Hydrox/Simeth 30 ml PO Q6H PRN 7 Days 06/07/16 [Maalox] Allergies Allergy/AdvReac Type Severity Reaction Status Date / Time ampicillin Allergy Unknown Verified 06/12/16 09:14 azithromycin Allergy Unknown Verified 06/12/16 09:14 Iodinated Contrast Media - Allergy Rash/Hives Verified 06/12/16 09:14 Oral and [Iodinated Contrast Media - IV Dye] metronidazole [From Flagyl] Allergy Unknown Verified 06/12/16 09:14 Penicillins Allergy Unknown Verified 06/12/16 09:14 aripiprazole [From Abilify] AdvReac Nausea & Verified 06/12/16 09:14 Vomiting cephalexin monohydrate AdvReac Nausea & Verified 06/12/16 09:14 [From Keflex] Vomiting ciprofloxacin [From Cipro] AdvReac Nausea & Verified 06/12/16 09:14 Vomiting Review of Systems ROS Statement: Those systems with pertinent positive or pertinent negative responses have been documented in the HPI. ROS Other: All systems not noted in ROS Statement are negative. Past Medical History Past Medical History: GERD/Reflux, Hyperlipidemia Additional Past Medical History / Comment(s): substance abuse-pt states she doesn't remember, ibs, gastritis. substance abuse History of Any Multi-Drug Resistant Organisms: C-DIFF Date of last positivie culture/infection: 2011 MDRO Source:: stool Past Surgical History: Cholecystectomy, Hysterectomy, Orthopedic Surgery, Tonsillectomy, Tubal Ligation Additional Past Surgical History / Comment(s): right eye cataract, bilateral shoulder surgery x2, right knee surgry, partial hysterectomy, back surgery was to remove skin tags. Past Anesthesia/Blood Transfusion Reactions: No Reported Reaction Past Psychological History: Bipolar, Depression Additional Psychological History / Comment(s): Pt states she has had increased depression lately r/t health issues. She denies suicidal thoughts or plans. She does not wich to be . She does not have any pychiatric care. She has paper work which she is having difficulty completing it is for "Adult services" . She resides alone and has a cat. 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 Smoking Status: Former smoker Past Alcohol Use History: None Reported Additional Past Alcohol Use History / Comment(s): Patient was a smoker one and a half packs per day for 30 years and quit last weekend. She denies any medical marijuana, marijuana, street drug use. She does have history of narcotic abuse is currently receiving her medications on a regular basis from a physician in [facility]. She lives at home alone with her cat. She is currently . Past Drug Use History: None Reported Additional Drug Use History / Comment(s): Pt states she has hx of narcotic abuse but it was yrs ago. - Past Family History Mother Family Medical History: Cancer Additional Family Medical History / Comment(s): patient does not know history on her mother as they have had relationship on and off over the years. Father Family Medical History: No Reported History Additional Family Medical History / Comment(s): Father at age 57 with history of cerebral palsy Son(s) Additional Family Medical History / Comment(s): She has 2 sons with no major medical problems. She does not have any brothers or sisters. General Exam Limitations: no limitations General appearance: alert, in no apparent distress Head exam: Present: atraumatic, normocephalic, normal inspection Eye exam: Present: normal appearance, PERRL, EOMI. Absent: scleral icterus, conjunctival injection, periorbital swelling ENT exam: Present: normal exam, mucous membranes moist Neck exam: Present: normal inspection, full ROM. Absent: tenderness, meningismus, lymphadenopathy Respiratory exam: Present: normal lung sounds bilaterally. Absent: respiratory distress, wheezes, rales, rhonchi, stridor Cardiovascular Exam: Present: regular rate, normal rhythm, normal heart sounds. Absent: systolic murmur, diastolic murmur, rubs, gallop, clicks GI/Abdominal exam: Present: soft, normal bowel sounds. Absent: distended, tenderness, guarding, rebound, rigid Extremities exam: Present: normal inspection, full ROM, normal capillary refill , other (Mild edema noted around the left lateral malleolus.). Absent: tenderness, pedal edema, joint swelling, calf tenderness Back exam: Present: normal inspection Neurological exam: Present: alert, oriented X3, CN II-XII intact Psychiatric exam: Present: normal affect, normal mood Skin exam: Present: warm, dry, intact, normal color. Absent: rash Course Vital Signs 06/12/16 09:11 Temperature 99.8 F H Pulse Rate 83 Respiratory 16 Rate Blood Pressure 117/77 O2 Sat by Pulse 97 Oximetry Medical Decision Making - Medical Decision Making 45-year-old female presented to emergency department today for evaluation of left ankle pain. X-rays reveal no acute osseous abnormalities. Physical exam did reveal some swelling. Patient will be given Shawn wrap for comfort, instructions to ice and elevate, and crutches. Patient be discharged also with instructions to follow-up in 7-10 days if her symptoms aren't improved. Return for any new, worsening or concerning symptoms. Patient verbalizes understanding and agrees this plan. Disposition Clinical Impression: Sprain of ankle, left Disposition: HOME SELF-CARE Condition: Good Instructions: Ankle Sprain (ED) Additional Instructions: Wear Shawn wrap for comfort. Take home pain medications for pain control. Use crutches as needed. Follow-up with primary care physician for repeat x-ray in 7 -10 days if symptoms are improved. Referrals: Antonia Grimes MD [Primary Care Provider] - 1-2 days Time of Disposition: 10:09
--- NOTE | 2016-06-12 09:53 | XR ---
EXAMINATION TYPE: XR ankle complete LT DATE OF EXAM ORDERED: 06/12/2016 9:50 AM HISTORY: Pain. COMPARISON: None. FINDINGS: No fracture, dislocation or joint effusion is seen. IMPRESSION: NO ACUTE OSSEOUS LESION.
--- NOTE | 2016-06-12 10:33 | XR ---
EXAMINATION TYPE: XR foot complete LT DATE OF EXAM ORDERED: 06/12/2016 9:50 AM HISTORY: Pain. COMPARISON: None. FINDINGS: No fracture, dislocation or other acute osseous lesion is seen. IMPRESSION: NORMAL LEFT FOOT.
[2016-06-12 10:52] VITALS: BP 100/53; PULSE 61; TEMP 98.8
== END 2016-06-12 11:03 | disposition home or self-care (01) ==
LOC: EC 09:09
DX: S93.402A Sprain of unspecified ligament of left ankle, initial encounter (principal); K21.9 Gastro-esophageal reflux disease without esophagitis; E78.5 Hyperlipidemia, unspecified; F32.9 Major depressive disorder, single episode, unspecified; Z87.891 Personal history of nicotine dependence; Z79.899 Other long term (current) drug therapy; Z88.0 Allergy status to penicillin; Z88.1 Allergy status to other antibiotic agents; Z88.8 Allergy status to other drugs, medicaments and biological substances; Z91.041 Radiographic dye allergy status; W10.9XXA Fall (on) (from) unspecified stairs and steps, initial encounter; X50.1XXA Overexertion from prolonged static or awkward postures, initial encounter
CPT/HCPCS: 99283

== ENCOUNTER 2016-06-16 22:38 | Inpatient (IN) | payer MEDICAID, OTHER ==
[2016-06-16] MEDS ORDERED: DICYCLOMINE 10 MG/ML 2 ML AMP IM STA (23:16)
[2016-06-16] MEDS ORDERED: ONDANSETRON 4 MG/2 ML VIAL IVP STA (23:16)
--- NOTE | 2016-06-16 23:20 | ED ---
Abdominal Pain HPI - General Chief Complaint: Abdominal Pain Stated Complaint: Nausea/Vomiting Time Seen by Provider: 06/16/16 22:40 Source: patient, EMS Mode of arrival: EMS - History of Present Illness MD Complaint: abdominal pain -: hour(s) Location: diffuse Radiation: none Migration to: no migration Severity: severe Quality: dull Consistency: constant Improves With: nothing Worsens With: nothing Associated Symptoms: nausea, vomiting - Related Data Home Medications Medication Instructions Recorded Confirmed Pantoprazole Sodium 40 mg PO BID 12/13/13 06/16/16 Simvastatin [Zocor] 40 mg PO HS 10/04/14 06/16/16 Methocarbamol [Robaxin] 750 mg PO TID PRN 02/20/15 06/16/16 Dicyclomine [Bentyl] 20 mg PO QID 07/07/15 06/16/16 [id number] 2 tab PO Q6HR PRN 01/16/16 06/16/16 [Excedrin] Gabapentin 600 mg PO TID 02/24/16 06/16/16 Famotidine [Pepcid] 20 mg PO BID 04/19/16 06/16/16 Propranolol HCl [Inderal] 60 mg PO BID 04/19/16 06/16/16 Sucralfate [Carafate] 1 gm PO AC-TID 04/19/16 06/16/16 Acetaminophen Tab [Tylenol] 1,000 mg PO TID PRN 05/16/16 06/16/16 Albuterol Nebulized [Ventolin 2.5 mg INHALATION RT-TID PRN 05/16/16 06/16/16 Nebulized] Cetirizine HCl [Zyrtec] 10 mg PO DAILY 05/16/16 06/16/16 Promethazine HCl 12.5 mg PO Q6H PRN 05/18/16 06/16/16 Diphenox-Atrop 2.5-0.025 mg 1 tab PO TID PRN 05/30/16 06/16/16 [Lomotil] Divalproex [Depakote] 250 mg PO HS 05/30/16 06/16/16 Loperamide [Imodium] 2 mg PO Q4H PRN 05/30/16 06/16/16 HYDROcodone/APAP 5-325MG [[place] 1 tab PO Q4HR PRN 06/09/16 06/16/16 5-325] Previous Rx's Medication Instructions Recorded Ondansetron Odt [Zofran ODT] 4 mg PO Q8HR PRN #5 tab 05/16/16 Escitalopram [Lexapro] 10 mg PO DAILY #30 tab 06/02/16 Mag Hydrox/Al Hydrox/Simeth 30 ml PO Q6H PRN 7 Days 06/07/16 [Maalox] Hydrocodone/Acetaminophen [[place] 1 each PO Q6HR PRN #20 tab 06/17/16 5-325] Ondansetron Odt [Zofran ODT] 4 mg PO Q8HR PRN #10 tab 06/17/16 Allergies Allergy/AdvReac Type Severity Reaction Status Date / Time ampicillin Allergy Unknown Verified 06/16/16 23:05 azithromycin Allergy Unknown Verified 06/16/16 23:05 Iodinated Contrast Media - Allergy Rash/Hives Verified 06/16/16 23:05 Oral and [Iodinated Contrast Media - IV Dye] metronidazole [From Flagyl] Allergy Unknown Verified 06/16/16 23:05 Penicillins Allergy Unknown Verified 06/16/16 23:05 aripiprazole [From Abilify] AdvReac Nausea & Verified 06/16/16 23:05 Vomiting cephalexin monohydrate AdvReac Nausea & Verified 06/16/16 23:05 [From Keflex] Vomiting ciprofloxacin [From Cipro] AdvReac Nausea & Verified 06/16/16 23:05 Vomiting Review of Systems ROS Statement: Those systems with pertinent positive or pertinent negative responses have been documented in the HPI. ROS Other: All systems not noted in ROS Statement are negative. Constitutional: Denies: fever, chills Respiratory: Denies: cough, dyspnea, wheezes Cardiovascular: Denies: chest pain, palpitations, syncope Gastrointestinal: Reports: abdominal pain, nausea, vomiting, diarrhea. Denies: melena, hematochezia Genitourinary: Denies: dysuria, hematuria Skin: Denies: rash Neurological: Denies: headache, weakness, numbness Past Medical History Past Medical History: GERD/Reflux, Hyperlipidemia Additional Past Medical History / Comment(s): substance abuse-pt states she doesn't remember, ibs, gastritis. substance abuse History of Any Multi-Drug Resistant Organisms: C-DIFF Date of last positivie culture/infection: 2011 MDRO Source:: stool Past Surgical History: Cholecystectomy, Hysterectomy, Orthopedic Surgery, Tonsillectomy, Tubal Ligation Additional Past Surgical History / Comment(s): right eye cataract, bilateral shoulder surgery x2, right knee surgry, partial hysterectomy, back surgery was to remove skin tags. Past Anesthesia/Blood Transfusion Reactions: No Reported Reaction Past Psychological History: Bipolar, Depression Additional Psychological History / Comment(s): Pt states she has had increased depression lately r/t health issues. She denies suicidal thoughts or plans. She does not wich to be . She does not have any pychiatric care. She has paper work which she is having difficulty completing it is for "Adult services" . She resides alone and has a cat. 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 Smoking Status: Former smoker Past Alcohol Use History: None Reported Additional Past Alcohol Use History / Comment(s): Patient was a smoker one and a half packs per day for 30 years and quit last weekend. She denies any medical marijuana, marijuana, street drug use. She does have history of narcotic abuse is currently receiving her medications on a regular basis from a physician in [facility]. She lives at home alone with her cat. She is currently . Past Drug Use History: None Reported Additional Drug Use History / Comment(s): Pt states she has hx of narcotic abuse but it was yrs ago. - Past Family History Mother Family Medical History: Cancer Additional Family Medical History / Comment(s): patient does not know history on her mother as they have had relationship on and off over the years. Father Family Medical History: No Reported History Additional Family Medical History / Comment(s): Father at age 57 with history of cerebral palsy Son(s) Additional Family Medical History / Comment(s): She has 2 sons with no major medical problems. She does not have any brothers or sisters. General Exam General appearance: alert, in no apparent distress Head exam: Present: atraumatic, normocephalic Eye exam: Present: normal appearance. Absent: scleral icterus, conjunctival injection Respiratory exam: Present: normal lung sounds bilaterally. Absent: respiratory distress, wheezes, rales, rhonchi, stridor Cardiovascular Exam: Present: regular rate, normal rhythm, normal heart sounds. Absent: systolic murmur, diastolic murmur, rubs, gallop GI/Abdominal exam: Present: soft, tenderness, normal bowel sounds. Absent: distended, guarding, rebound, rigid, mass, pulsatile mass, hernia Extremities exam: Present: normal inspection, normal capillary refill. Absent: pedal edema, calf tenderness Back exam: Present: normal inspection. Absent: CVA tenderness (R), CVA tenderness (L) Neurological exam: Present: alert Skin exam: Present: warm, dry, intact, normal color. Absent: rash, cyanosis, diaphoretic, erythema, petechiae, pallor, mottled Course Vital Signs 06/16/16 06/17/16 06/17/16 22:49 00:56 01:19 Temperature 98.8 F 98.2 F Pulse Rate 95 89 84 Respiratory 18 16 16 Rate Blood Pressure 128/60 135/73 134/70 O2 Sat by Pulse 99 98 96 Oximetry Medical Decision Making - Lab Data Result diagrams: 06/16/16 23:20 06/16/16 23:20 Lab Results 06/16/16 06/16/16 06/17/16 Range/Units 23:20 23:20 00:35 WBC 15.0 H (3.8-10.6) k/uL RBC 3.57 L (3.80-5.40) m/uL Hgb 12.0 (11.4-16.0) gm/dL Hct 33.7 L (34.0-46.0) % MCV 94.2 (80.0-100.0) fL MCH 33.5 (25.0-35.0) pg MCHC 35.5 (31.0-37.0) g/dL RDW 13.8 (11.5-15.5) % Plt Count 407 (150-450) k/uL Neutrophils % 71 % Lymphocytes % 21 % Monocytes % 7 % Eosinophils % 0 % Basophils % 0 % Neutrophils # 10.7 H (1.3-7.7) k/uL Lymphocytes # 3.1 (1.0-4.8) k/uL Monocytes # 1.0 (0-1.0) k/uL Eosinophils # 0.1 (0-0.7) k/uL Basophils # 0.1 (0-0.2) k/uL ESR 47 H (0-20) mm/hr Sodium 138 (137-145) mmol/L Potassium 3.7 (3.5-5.1) mmol/L Chloride 102 (98-107) mmol/L Carbon Dioxide 22 (22-30) mmol/L Anion Gap 14 mmol/L BUN 8 (7-17) mg/dL Creatinine 0.90 (0.52-1.04) mg/dL Est GFR (MDRD) Af Amer >60 (>60 ml/min/1.73 sqM) Est GFR (MDRD) Non-Af >60 (>60 ml/min/1.73 sqM) Glucose 119 H (74-99) mg/dL Plasma Lactic Acid Von (0.7-2.0) mmol/L Calcium 9.9 (8.4-10.2) mg/dL Total Bilirubin 0.4 (0.2-1.3) mg/dL AST 20 (14-36) U/L ALT 31 (9-52) U/L Alkaline Phosphatase 90 (38-126) U/L Total Protein 7.0 (6.3-8.2) g/dL Albumin 4.1 (3.5-5.0) g/dL Amylase 55 (30-110) U/L Lipase 114 (23-300) U/L Urine Color Urine Appearance (Clear) Urine pH (5.0-8.0) Ur Specific Sage (1.001-1.035) Urine Protein (Negative) Urine Glucose (UA) (Negative) Urine Ketones (Negative) Urine Blood (Negative) Urine Nitrite (Negative) Urine Bilirubin (Negative) Urine Urobilinogen (<2.0) mg/dL Ur Leukocyte Esterase (Negative) Urine RBC (0-5) /hpf Urine WBC (0-5) /hpf Ur Squamous Epith Cells (0-4) /hpf Urine Bacteria (None) /hpf Urine Mucus (None) /hpf Urine HCG, Qual Not Detected (Not Detectd) 06/17/16 06/17/16 Range/Units 00:35 01:12 WBC (3.8-10.6) k/uL RBC (3.80-5.40) m/uL Hgb (11.4-16.0) gm/dL Hct (34.0-46.0) % MCV (80.0-100.0) fL MCH (25.0-35.0) pg MCHC (31.0-37.0) g/dL RDW (11.5-15.5) % Plt Count (150-450) k/uL Neutrophils % % Lymphocytes % % Monocytes % % Eosinophils % % Basophils % % Neutrophils # (1.3-7.7) k/uL Lymphocytes # (1.0-4.8) k/uL Monocytes # (0-1.0) k/uL Eosinophils # (0-0.7) k/uL Basophils # (0-0.2) k/uL ESR (0-20) mm/hr Sodium (137-145) mmol/L Potassium (3.5-5.1) mmol/L Chloride (98-107) mmol/L Carbon Dioxide (22-30) mmol/L Anion Gap mmol/L BUN (7-17) mg/dL Creatinine (0.52-1.04) mg/dL Est GFR (MDRD) Af Amer (>60 ml/min/1.73 sqM) Est GFR (MDRD) Non-Af (>60 ml/min/1.73 sqM) Glucose (74-99) mg/dL Plasma Lactic Acid Von 1.2 (0.7-2.0) mmol/L Calcium (8.4-10.2) mg/dL Total Bilirubin (0.2-1.3) mg/dL AST (14-36) U/L ALT (9-52) U/L Alkaline Phosphatase (38-126) U/L Total Protein (6.3-8.2) g/dL Albumin (3.5-5.0) g/dL Amylase (30-110) U/L Lipase (23-300) U/L Urine Color Yellow Urine Appearance Clear (Clear) Urine pH 8.5 H (5.0-8.0) Ur Specific Sage 1.013 (1.001-1.035) Urine Protein 2+ H (Negative) Urine Glucose (UA) Negative (Negative) Urine Ketones 1+ H (Negative) Urine Blood Moderate H (Negative) Urine Nitrite Negative (Negative) Urine Bilirubin Negative (Negative) Urine Urobilinogen <2.0 (<2.0) mg/dL Ur Leukocyte Esterase Negative (Negative) Urine RBC 25 H (0-5) /hpf Urine WBC 2 (0-5) /hpf Ur Squamous Epith Cells 1 (0-4) /hpf Urine Bacteria Rare H (None) /hpf Urine Mucus Rare H (None) /hpf Urine HCG, Qual (Not Detectd) Disposition Clinical Impression: Abdominal pain Disposition: HOME SELF-CARE Condition: Fair Instructions: Abdominal Pain (ED) Prescriptions: Hydrocodone/Acetaminophen [[place] 5-325] 1 each PO Q6HR PRN #20 tab PRN Reason: Pain Ondansetron Odt [Zofran ODT] 4 mg PO Q8HR PRN #10 tab PRN Reason: Nausea Referrals: Antonia Grimes MD [Primary Care Provider] - 1-2 days Josué Acevedo MD [STAFF PHYSICIAN] - 1-2 days
[2016-06-16 23:41] LABS: Basophils # (A) 0.1 k/uL (0-0.2); Basophils % (A) 0 %; CH 33.5; CHCM 35.8; Eosinophils # (A) 0.1 k/uL (0-0.7); Eosinophils % (A) 0 %; HCT 33.7 % (34.0-46.0); HDW 2.62; Luc % (Auto) 1; Lymphocytes # (A) 3.1 k/uL (1.0-4.8); Lymphocytes % (A) 21 %; MCH 33.5 pg (25.0-35.0); MCHC 35.5 g/dL (31.0-37.0); MCV 94.2 fL (80.0-100.0); Mean Platelet Volume 6.7; Monocytes % (A) 7 %; Neutrophils # (A) 10.7 k/uL (1.3-7.7); Neutrophils % (A) 71 %; RBC 3.57 m/uL (3.80-5.40); RDW 13.8 % (11.5-15.5); WBC (Perox) 15.03
[2016-06-17 00:27] LABS: ALT 31 U/L (9-52); AST 20 U/L (14-36); Alkaline Phosphatase 90 U/L (38-126); Amylase 55 U/L (30-110); Anion Gap 14 mmol/L; Blood Urea Nitrogen 8 mg/dL (7-17); Calcium 9.9 mg/dL (8.4-10.2); Carbon Dioxide 22 mmol/L (22-30); Chloride 102 mmol/L (98-107); Glucose 119 mg/dL (74-99); Non-African American GFR(MDRD) >60 (>60 ml/min/1.73 sqM); Potassium 3.7 mmol/L (3.5-5.1); Sodium 138 mmol/L (137-145); Total Bilirubin 0.4 mg/dL (0.2-1.3)
[2016-06-17 00:33] LABS: Erythrocyte Sedimentation Rate 47 mm/hr (0-20)
[2016-06-17] MEDS ORDERED: MORPHINE SULFATE 4 MG/ML SYRINGE IV STA (00:33)
--- NOTE | 2016-06-17 00:39 | XR ---
EXAM: XR Abdomen, 1 View. CLINICAL HISTORY: Reason: abdominal pain TECHNIQUE: Frontal supine view of the abdomen/pelvis. COMPARISON: [facility] on 06/09/2016 FINDINGS: Abdomen: Nonobstructive bowel gas pattern. Small amount of stool predominantly in the right colon. No free air. Cholecystectomy clips again seen in the right upper quadrant. Clips in the bilateral aspects of the pelvis are compatible with prior tubal ligation. Bones: No acute osseous abnormality. Soft tissues: Normal. Lower chest: Normal. IMPRESSION: No acute abnormality.
[2016-06-17] MEDS ORDERED: ONDANSETRON 4 MG/2 ML VIAL IVP STA (00:53)
[2016-06-17 00:56] LABS: Appearance,Urine Clear (Clear); Bacteria,Urine Rare /hpf; Bilirubin,Urine Negative (Negative); Glucose,Urine (UA) Negative (Negative); Ketones,Urine 1+ (Negative); Leukocyte Esterase,Urine Negative (Negative); Mucus,Urine Rare /hpf; Nitrite,Urine Negative (Negative); PH, Urine 8.5 (5.0-8.0); Particle Count 3376; Protein,Urine 2+ (Negative); RBC,Urine 25 /hpf (0-5); Specific Gravity,Urine 1.013 (1.001-1.035); Squamous Epithelial Cell,Urine 1 /hpf (0-4); UA Billing (MACRO vs. MICRO) MICRO; Urobilinogen,Urine <2.0 mg/dL (<2.0); WBC,Urine 2 /hpf (0-5)
--- NOTE | 2016-06-17 03:11 | CT ---
EXAM: CT Abdomen and Pelvis Without Intravenous Contrast. CLINICAL HISTORY: Reason: Pain, stone protocol TECHNIQUE: Axial computed tomography images of the abdomen and pelvis without intravenous contrast. CTDI is 9.30 mGy and DLP is 418.40 mGy-cm This CT exam was performed using one or more of the following dose reduction techniques: automated exposure control, adjustment of the mA and/or kV according to patient size, and/or use of iterative reconstruction technique. COMPARISON: CT abdomen/pelvis on 04/06/2016 FINDINGS: Evaluation of solid organs somewhat limited without IV contrast. Liver: No focal lesion. Spleen: No focal lesion. Gallbladder: Status post cholecystectomy. Pancreas: No mass. Adrenal glands: No mass. Kidneys: Normal. No hydronephrosis or stone. No mass. Bowel: Diverticulosis without evidence of diverticulitis. Normal appendix. No bowel obstruction or inflammation. Urinary bladder: Underdistended bladder. Reproductive organs: Surgical changes and bilateral aspects of the pelvis are compatible with prior tubal ligation. Status post hysterectomy. Muscles: No mass. Subcutaneous tissues: Unremarkable. Peritoneal space: No free fluid. Lymph nodes: No lymphadenopathy. Vessels: Mild atherosclerotic calcifications. No aneurysm. Bones: Remote fracture deformity of the left lateral ninth rib. No acute fracture or bony lesion. Lung bases: Minimal dependent atelectasis bilaterally. IMPRESSION: 1. No acute abnormality identified in the abdomen or pelvis. 2. Diverticulosis without evidence of diverticulitis. Normal appendix. 3. Status post cholecystectomy, hysterectomy, and tubal ligation.
[2016-06-17] MEDS ORDERED: HYDROcodone/APAP 7.5-325MG 1 EACH TAB PO ONE (03:49)
[2016-06-17] MEDS ORDERED: MAG HYDROX/AL HYDROX/SIMETH 30 ML CUP PO PRN (05:40)
[2016-06-17] MEDS ORDERED: ACETAMINOPHEN TAB 325 MG TAB PO PRN (05:40)
[2016-06-17] MEDS ORDERED: MAGNESIUM HYDROXIDE 2,400 MG/10 ML CUP PO PRN (05:40)
[2016-06-17] MEDS ORDERED: ONDANSETRON ODT 4 MG TAB PO PRN (05:43)
[2016-06-17] MEDS ORDERED: METHOCARBAMOL 750 MG TAB PO PRN (05:43)
[2016-06-17] MEDS ORDERED: DIPHENOX-ATROP 2.5-0.025 MG 1 EACH TAB PO PRN (05:43)
[2016-06-17] MEDS ORDERED: ESCITALOPRAM 10 MG TAB PO SCH (09:00)
[2016-06-17] MEDS: SUCRALFATE 1 GM TAB PO SCH ×3 (09:37→17:18)
[2016-06-17] MEDS: DICYCLOMINE 20 MG TAB PO SCH ×4 (09:38→20:55)
[2016-06-17] MEDS: FAMOTIDINE 20 MG TAB PO SCH ×2 (09:38→20:56)
[2016-06-17] MEDS: PANTOPRAZOLE 40 MG TABLET PO SCH ×2 (09:38→17:18)
[2016-06-17] MEDS: LORATADINE 10 MG TAB PO SCH (09:38)
[2016-06-17] MEDS: GABAPENTIN 300 MG CAP PO SCH ×3 (09:39→20:54)
[2016-06-17] MEDS: PROPRANOLOL 20 MG TAB PO SCH ×2 (09:43→20:55)
[2016-06-17] MEDS: NICOTINE 14MG/24HR PATCH TRANSDERM SCH (09:43)
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
[2016-06-17] MEDS: ALBUTEROL NEBULIZED 2.5 MG/3 ML INHALATION PRN (17:12)
[2016-06-17] MEDS: ASPIRIN-ACET-CAFF 250-250-65MG 1 EACH TAB PO PRN (18:13)
[2016-06-17] MEDS: ATORVASTATIN 20 MG TAB PO SCH (20:55)
[2016-06-17] MEDS: risperiDONE ODT 2 MG TAB PO SCH (20:55)
[2016-06-17] MEDS ORDERED: DIVALPROEX 250 MG TABLET.DR PO SCH (21:00)
--- NOTE | 2016-06-18 06:28 | CONS ---
DATE OF CONSULTATION: REASON FOR CONSULTATION: Medical clearance. Patient was admitted to the psychiatric floor for further psychiatric evaluation. Medicine was consulted for recommendations regarding hyperlipidemia and management of medications. The patient is requesting Excedrin on p.r.n. basis for headache, which was ordered. Patient denied any fever or chills. Patient denied any nausea, vomiting, abdominal pain at this point of time. Patient denied any shortness of breath. REVIEW OF SYSTEMS: CONSTITUTIONAL: No fever, no malaise, no fatigue. HEENT: No recent visual problems or hearing problems. Denied any sore throat. CARDIOVASCULAR: No chest pain, orthopnea, PND, no palpitations, no syncope. PULMONARY: No shortness of breath, no cough, no hemoptysis. GASTROINTESTINAL: No diarrhea, no nausea, no vomiting, no abdominal pain. Normoactive bowel sounds. NEUROLOGICAL: No headaches, no weakness, no numbness. HEMATOLOGICAL: Denies any bleeding or petechiae. GENITOURINARY: Denies any burning micturition, frequency, or urgency. MUSCULOSKELETAL/RHEUMATOLOGICAL: Denies any joint pain, swelling, or any muscle pain. ENDOCRINE: Denies any polyuria or polydipsia. PSYCHIATRIC: Please refer to psychiatric dictation. The rest of the 14 point review of systems is negative. HOME MEDICATIONS: Pantoprazole, simvastatin, methocarbamol, dicyclomine; acetaminophen, aspirin and caffeine combination which is Excedrin; famotidine, propranolol, sucralfate, acetaminophen, albuterol, cetirizine, promethazine, diphenoxylate atropine, Depakote, Imodium and hydrocodone acetaminophen, ondansetron, escitalopram, Maalox. Allergies are AMPICILLIN, AZITHROMYCIN, IODINATED CONTRAST MEDIA, PENICILLIN, ARIPIPRAZOLE, CEPHALEXIN, CIPROFLOXACIN. PAST MEDICAL HISTORY: ( ), hyperlipidemia, migraines for which patient is on migraine prophylaxis with propranolol and Depakote and Excedrin for migraine exacerbation. Patient has history of ( ). SOCIAL HISTORY: Smokes about 1/2 pack per day. Denied any alcohol abuse or marijuana abuse or recreation drug abuse. FAMILY HISTORY: Mother had cancer. Father at age 57 of cerebral palsy. The patient has 2 sons without any major medical problems. PHYSICAL EXAMINATION: Temperature 98.2, pulse is 89, respiratory rate 16, blood pressure 134/70, saturating at 99% on room air. GENERAL: The patient is alert and oriented x3, not in any acute distress. Well developed, well nourished. HEENT: Pupils are round and equally reacting to light. EOMI. No scleral icterus. No conjunctival pallor. Normocephalic, atraumatic. No pharyngeal erythema. No thyromegaly. CARDIOVASCULAR: S1 and S2 present. No murmurs, rubs, or gallops. PULMONARY: Chest is clear to auscultation, no wheezing or crackles. ABDOMEN: Soft, nontender, nondistended, normoactive bowel sounds. No palpable organomegaly. MUSCULOSKELETAL: No joint swelling or deformity. EXTREMITIES: No cyanosis, clubbing, or pedal edema. NEUROLOGICAL: Gross neurological examination did not reveal any focal deficits. SKIN: No rashes. LABORATORY DATA: CBC and CMP are abnormal for elevated WBC at 15,000. UA with 2 + protein, 1+ ketones, starvation ketosis, a little bit of blood was also seen. Otherwise, no other significant abnormality was appreciated. The patient did not have any ( ). ASSESSMENT AND PLAN: 1. Leukocytosis without any signs or symptoms of infection, appears to be reactive in nature. No further intervention is necessary at this point of time. 2. Gastroesophageal reflux disease. 3. Hyperlipidemia. Can continue home medications and patient has migraines. The patient is on migraine prophylaxis medications which can be continued. Regarding her ( ) medications, these can be continued. Regarding her psychiatric management as per the primary service. Thank you for letting me participate in this patient's care. Will sign off at this point of time.
[2016-06-18] MEDS: DICYCLOMINE 20 MG TAB PO SCH ×4 (08:57→23:24)
[2016-06-18] MEDS: SUCRALFATE 1 GM TAB PO SCH ×3 (08:57→16:44)
[2016-06-18] MEDS: GABAPENTIN 300 MG CAP PO SCH ×3 (08:59→23:24)
[2016-06-18] MEDS: PANTOPRAZOLE 40 MG TABLET PO SCH ×2 (08:59→16:44)
[2016-06-18] MEDS: DULoxetine HCL 30 MG CAPSULE.DR PO SCH (08:59)
[2016-06-18] MEDS: FAMOTIDINE 20 MG TAB PO SCH ×2 (08:59→23:24)
[2016-06-18] MEDS: LORATADINE 10 MG TAB PO SCH (09:00)
[2016-06-18] MEDS: NICOTINE 14MG/24HR PATCH TRANSDERM SCH (09:00)
[2016-06-18] MEDS: PROPRANOLOL 20 MG TAB PO SCH (09:00)
--- NOTE | 2016-06-18 10:19 | P.PN ---
Progress Note - Text Interval history: Patient was seen in office ,still endorsing command hallucination telling her to kill herself ,talking in detail about her ex boyfriend :Wander ,she knew him since 1994 ,was living with him till 2011 but she had to move out as he met his current girlfriend"Gela","Wander"is still very supportive ,patient was living in [facility] till DEC 2015 ,she decided to move to this area after her inpatient chemical dependency at [facility] ,she was ther for 28 days for opium abuse,patient was tearful at times talking about missing her cat ,she called her landlord to tell him to take cat to [place] I reviewed medical consult and her labs : WBC:15.0 ,UA :+for protein ,WBC and RBC VITALS:Pulse:79 ,Resp:18 ,BP:109/75 PER NURSING STAFF :patient slept 6 hours ,does not participate in groups Mental status exam: The patient is alert she seated calmly ,wearing her pajama Speech is spontaneous ,increase in productivity ,at times circumstantial with loose of association ,endorses depressive symptoms:helpless ,hopeless and worthless ,she endorses command hallucination telling her to kill herself , denies any homicidal ideation ,denies any manic or hypomanic features ,somatic preoccupied ,insight and judgment impaired. Plan:Restart Depakote for Migraine TOURE ,repeat CBC ,urine culture,continue Cymbalta for depression and pain ,risperdal for hallucination ,limit setting on her drug seeking for opium We will monitor for safety and encourage her participation in the milieu.
[2016-06-18] MEDS: ASPIRIN-ACET-CAFF 250-250-65MG 1 EACH TAB PO PRN (10:49)
[2016-06-18] MEDS: ALBUTEROL NEBULIZED 2.5 MG/3 ML INHALATION PRN (12:09)
[2016-06-18 12:52] LABS: Basophils # (A) 0.1 k/uL (0-0.2); Basophils % (A) 1 %; CH 32.7; CHCM 32.9; Eosinophils # (A) 0.1 k/uL (0-0.7); Eosinophils % (A) 1 %; HCT 36.3 % (34.0-46.0); HDW 2.57; Luc # (Auto) 0.23; Luc % (Auto) 2; Lymphocytes # (A) 3.3 k/uL (1.0-4.8); Lymphocytes % (A) 30 %; MCH 32.9 pg (25.0-35.0); MCHC 32.9 g/dL (31.0-37.0); Mean Platelet Volume 6.6; Monocytes # (A) 0.8 k/uL (0-1.0); Monocytes % (A) 7 %; Neutrophils # (A) 6.4 k/uL (1.3-7.7); Neutrophils % (A) 59 %; RBC 3.64 m/uL (3.80-5.40); RDW 13.8 % (11.5-15.5); WBC 10.9 k/uL (3.8-10.6); WBC (Perox) 10.87
[2016-06-18 13:00] LABS: MCV 99.8 fL (80.0-100.0)
[2016-06-18] MEDS ORDERED: PROPRANOLOL 10 MG TAB PO SCH (15:17)
--- NOTE | 2016-06-18 19:19 | PN ---
I was asked to re-evaluate the patient because of her lightheadedness and low blood pressure, going into systolics of 90 and heart rate in the 60s. Patient is on propranolol for migraine prevention. REVIEW OF SYSTEMS: CARDIOVASCULAR: No chest pain, no orthopnea, no PND, no palpitations. PULMONARY: Denied any shortness of breath. No cough or hemoptysis. GASTROINTESTINAL: No diarrhea, nausea or vomiting. No abdominal pain. Normoactive bowel sounds. NEUROLOGIC: No headaches, no weakness, no numbness. CONSTITUTIONAL: As mentioned above. Medications were reviewed. Medication changes: propranolol will be cut down to 30 mg twice a day. If patient continues to have these symptoms, propranolol can be completely discontinued. PHYSICAL EXAMINATION: VITAL SIGNS: Temperature 98.1, pulse of 68, respiratory rate of 20. Blood pressure is 95/59. Saturating at 99% on room air. GENERAL: The patient is alert and oriented x3, not in any acute distress. Well developed, well nourished. HEENT: Pupils are round and equally reacting to light. EOMI. No scleral icterus. No conjunctival pallor. Normocephalic, atraumatic. No pharyngeal erythema. No thyromegaly. CARDIOVASCULAR: S1 and S2 present. No murmurs, rubs, or gallops. PULMONARY: Chest is clear to auscultation, no wheezing or crackles. ABDOMEN: Soft, nontender, nondistended, normoactive bowel sounds. No palpable organomegaly. MUSCULOSKELETAL: No joint swelling or deformity. EXTREMITIES: No cyanosis, clubbing, or pedal edema. NEUROLOGICAL: Gross neurological examination did not reveal any focal deficits. SKIN: No rashes. LABORATORY DATA: Leukocytosis, improved. ASSESSMENT AND PLAN: 1. Leukocytosis, improved; reactive response. 2. ( ) migraine. 3. Lightheadedness along with hypotension secondary to propranolol, which we will cut down to half. If she continues to have these symptoms, propranolol can be discontinued.
[2016-06-18] MEDS ORDERED: SODIUM CHLORIDE 0.9% 500 ML IV ONE (21:54)
[2016-06-18] MEDS: DIVALPROEX ER 250 MG TAB.ER.24H PO SCH (23:24)
[2016-06-18] MEDS: risperiDONE ODT 2 MG TAB PO SCH (23:24)
[2016-06-18] MEDS: ATORVASTATIN 20 MG TAB PO SCH (23:24)
[2016-06-19] MEDS: ATORVASTATIN 20 MG TAB PO SCH ×2 (00:20→21:16)
[2016-06-19] MEDS: FAMOTIDINE 20 MG TAB PO SCH ×3 (00:22→21:16)
[2016-06-19] MEDS: DICYCLOMINE 20 MG TAB PO SCH ×5 (00:22→21:16)
[2016-06-19] MEDS: GABAPENTIN 300 MG CAP PO SCH ×4 (00:23→16:51)
[2016-06-19] MEDS: ASPIRIN-ACET-CAFF 250-250-65MG 1 EACH TAB PO PRN ×3 (02:50→22:22)
[2016-06-19] MEDS: SUCRALFATE 1 GM TAB PO SCH ×3 (08:31→16:51)
[2016-06-19] MEDS: PANTOPRAZOLE 40 MG TABLET PO SCH ×2 (08:31→16:51)
[2016-06-19] MEDS: NICOTINE 14MG/24HR PATCH TRANSDERM SCH (08:32)
[2016-06-19] MEDS: DULoxetine HCL 30 MG CAPSULE.DR PO SCH (08:32)
[2016-06-19] MEDS: LORATADINE 10 MG TAB PO SCH (08:32)
[2016-06-19] MEDS: ALBUTEROL NEBULIZED 2.5 MG/3 ML INHALATION PRN ×3 (09:49→21:51)
--- NOTE | 2016-06-19 19:35 | P.PN ---
Progress Note - Text Date of service: 06/19/2016 Chief complaint: "I feel tired today" Subjective: The patient has been seeing today as follow-up, chart reviewed, case discussed with the treatment team. Patient reports he didn't have enough sleep last night because of the IV line and another patient was very loud. The patient has low blood pressure last night, and she has IV fluids. Patient reports feeling more depressed today, but denies feeling suicidal. She addressed intermittent thoughts of hopelessness. Patient reports high anxiety level, mostly related to aftercare plan and has no place to go after discharge. The patient was poor historian, and was giving history which is inconsistent with prior psychiatric notes The patient denies any auditory or visual hallucinations, paranoid ideation, and denies any manic symptoms. Review of other systems: Patient denies any physical symptoms besides what has been mentioned above. No problems was presenting no chest pain reported today. Objective: Vitals has been reviewed. Mental status examination; Appearance: The patient appears stated age, partially disheveled, no specific features. Gait/posture: Normal gait and posture, Normal arm was swinging: No abnormal movements. Attitude and behavior: Not engaged, partially cooperative, intermittent eye contact. Motor activity: Normal psychomotor activity Speech: Normal rate and rhythm Mood: Depressed. Affect: Constricted Thought form: Guarded, but coherent. Thought content: Paranoid, denies suicidal thoughts, denies homicidal thoughts, denies intentions or plans. Perception: Denies any auditory or visual hallucinations Attention: No impairment. Patient was able to repeat serial 7. Orientation: Patient patient was fully oriented to time place person and situation. Insight: Patient has limited insight about his psychiatric disorder. Judgment: Patient has limited judgment about his psychiatric treatment. Assessment: Major depressive disorder recurrent severe with psychotic features Plan: Continue current management. Continue Risperdal for psychotic symptoms and mood stabilization Continue Depakote for mood stabilization
[2016-06-19] MEDS: risperiDONE ODT 2 MG TAB PO SCH (21:16)
[2016-06-19] MEDS: DIVALPROEX ER 250 MG TAB.ER.24H PO SCH (21:16)
[2016-06-20] MEDS: PANTOPRAZOLE 40 MG TABLET PO SCH ×2 (09:15→17:30)
[2016-06-20] MEDS: SUCRALFATE 1 GM TAB PO SCH ×3 (09:15→17:30)
[2016-06-20] MEDS: DICYCLOMINE 20 MG TAB PO SCH ×4 (09:15→21:08)
[2016-06-20] MEDS: DULoxetine HCL 30 MG CAPSULE.DR PO SCH (09:15)
[2016-06-20] MEDS: LORATADINE 10 MG TAB PO SCH (09:16)
[2016-06-20] MEDS: GABAPENTIN 300 MG CAP PO SCH ×3 (09:16→21:08)
[2016-06-20] MEDS: FAMOTIDINE 20 MG TAB PO SCH ×2 (09:16→20:36)
[2016-06-20] MEDS: ASPIRIN-ACET-CAFF 250-250-65MG 1 EACH TAB PO PRN ×2 (09:16→20:38)
[2016-06-20] MEDS: NICOTINE 14MG/24HR PATCH TRANSDERM SCH (09:16)
[2016-06-20] MEDS ORDERED: MELOXICAM 7.5 MG TAB PO ONE (15:03)
--- NOTE | 2016-06-20 16:59 | P.PN ---
Progress Note - Text Date of service: 06/20/2016 Chief complaint: "My shoulder hurts" Subjective: The patient has been seen today as follow-up, chart reviewed, case discussed with the treatment team. Patient reports has right shoulder pain since yesterday that limits his activities. Patient reports history of right shoulder surgeries and she has history of rotator cuff tear. Patient minimizes her depression and reports low libido when exactly patient denies feeling suicidal, homicidal and she denies any intention to hurt self or others. Patient denies any auditory or visual hallucinations and he denies any paranoid ideation. No delusions was addressed and patient presented logical and not psychotic. Blood pressure is better today and in average range, no report of hypotension or dizziness. Patient reports has fair sleep and appetite. The patient denies any drastic mood changes or manic symptoms. Review of other systems: Patient denies any physical symptoms besides what has been mentioned above. No breathing problems, no chest pain reported today. Objective: Vitals has been reviewed. Mental status examination; Appearance: The patient appears stated age, partially disheveled, no specific features. Gait/posture: Normal gait and posture, Normal arm was swinging: No abnormal movements. Attitude and behavior: engaged, partially cooperative, intermittent eye contact. Motor activity: Normal psychomotor activity Speech: Normal rate and rhythm Mood: Anxious Affect: Constricted Thought form: Guarded, but coherent. Thought content: Paranoid, denies suicidal thoughts, denies homicidal thoughts, denies intentions or plans. Perception: Denies any auditory or visual hallucinations Attention: No impairment. Patient was able to repeat serial 7. Orientation: Patient patient was fully oriented to time place person and situation. Insight: Patient has limited insight about his psychiatric disorder. Judgment: Patient has limited judgment about his psychiatric treatment. Assessment: Major depressive disorder recurrent severe with psychotic features Plan: Continue current management. Continue Risperdal for psychotic symptoms and mood stabilization Continue Depakote for mood stabilization Physical therapy consultation for right shoulder pain. Mobic 7.5 mg daily for shoulder pain. Patient declined Motrin due to history of gastritis. Continue current management.
[2016-06-20] MEDS: ATORVASTATIN 20 MG TAB PO SCH (20:35)
[2016-06-20] MEDS: DIVALPROEX ER 250 MG TAB.ER.24H PO SCH (20:35)
[2016-06-20] MEDS: risperiDONE ODT 2 MG TAB PO SCH (20:36)
[2016-06-21] MEDS: PANTOPRAZOLE 40 MG TABLET PO SCH ×2 (07:41→18:17)
[2016-06-21] MEDS: SUCRALFATE 1 GM TAB PO SCH ×3 (07:41→18:17)
[2016-06-21] MEDS: DICYCLOMINE 20 MG TAB PO SCH ×4 (08:46→22:32)
[2016-06-21] MEDS: FAMOTIDINE 20 MG TAB PO SCH ×2 (08:46→22:32)
[2016-06-21] MEDS: GABAPENTIN 300 MG CAP PO SCH ×3 (08:46→22:32)
[2016-06-21] MEDS: DULoxetine HCL 30 MG CAPSULE.DR PO SCH (08:46)
[2016-06-21] MEDS: MELOXICAM 7.5 MG TAB PO SCH (08:47)
[2016-06-21] MEDS: NICOTINE 14MG/24HR PATCH TRANSDERM SCH (08:51)
[2016-06-21 08:55] VITALS: RESP 18
[2016-06-21] MEDS: LORATADINE 10 MG TAB PO SCH (09:30)
[2016-06-21] MEDS: ASPIRIN-ACET-CAFF 250-250-65MG 1 EACH TAB PO PRN ×3 (09:30→18:49)
[2016-06-21 10:52] VITALS: BMI 29.3
--- NOTE | 2016-06-21 11:12 | P.PN ---
Progress Note - Text Interval history: The patient is found in the hallway she follows me to an interview room. She was admitted prior to this past weekend with suicidal ideation. The Lexapro was stopped and she was restarted on Cymbalta Risperdal was continued. She states she is stressed as she is being evicted from her apartment and does not have another place to go. She reports having abdominal issues and right shoulder pain. She states that her mood is stabilizing. She has been attending group. Mental status exam. The patient is alert she is dressed in her own clothing she is mildly disheveled hygiene is adequate. Speech is fluent spontaneous nonpressured. She reports her suicidal thoughts are resolving she is reporting no homicidal ideation. Affect is mildly expresses mostly constricted. She is endorsing no auditory or visual hallucinations no specific delusions. She does not appear hypomanic or manic. Insight and judgment improving. She is oriented to person place and date. Plan: We will observe the patient for the next 24 hours if she remains clinically stable and demonstrates further improvement we will discharge her tomorrow. Cymbalta will be increased to 60 mg daily she'll continue on Risperdal 2 mg at bedtime. She has been speaking with her friend to see if she is able to stay with him. She is able to return to her apartment as she does not need to be out until the end of the month. She is encouraged to continue participating in the milieu.
[2016-06-21] MEDS: DIVALPROEX ER 250 MG TAB.ER.24H PO SCH (22:32)
[2016-06-21] MEDS: risperiDONE ODT 2 MG TAB PO SCH (22:32)
[2016-06-21] MEDS: ATORVASTATIN 20 MG TAB PO SCH (22:32)
[2016-06-22] MEDS: ASPIRIN-ACET-CAFF 250-250-65MG 1 EACH TAB PO PRN ×2 (00:53→09:30)
[2016-06-22 06:54] VITALS: BP 128/72; PULSE 70; TEMP 97.7
[2016-06-22] MEDS: SUCRALFATE 1 GM TAB PO SCH ×2 (07:54→12:50)
[2016-06-22] MEDS ORDERED: DULoxetine HCL 60 MG CAPSULE.DR PO SCH (09:00)
[2016-06-22] MEDS: FAMOTIDINE 20 MG TAB PO SCH (09:28)
[2016-06-22] MEDS: MELOXICAM 7.5 MG TAB PO SCH (09:28)
[2016-06-22] MEDS: LORATADINE 10 MG TAB PO SCH (09:28)
[2016-06-22] MEDS: DICYCLOMINE 20 MG TAB PO SCH ×2 (09:28→12:50)
[2016-06-22] MEDS: PANTOPRAZOLE 40 MG TABLET PO SCH (09:28)
[2016-06-22] MEDS: GABAPENTIN 300 MG CAP PO SCH (09:28)
[2016-06-22] MEDS: NICOTINE 14MG/24HR PATCH TRANSDERM SCH (09:28)
--- NOTE | 2016-06-22 09:39 | P.DS ---
Providers Date of admission: 06/17/16 05:30 Expected date of discharge: 06/22/16 Attending physician: Malachi Nichole Consults: 06/17/16 05:40 Consult Physician Routine Consulting Provider: Cristine Javed Consult Reason/Comments: h&p and medical follow-up Do you want consulting provider notified?: Yes, Notify in am Primary care physician: Antonia Grimes - Discharge Diagnosis(es) (1) Major depressive disorder, recurrent Current Visit: Yes Status: Acute Priority: High Hospital Course: This patient's is a 45-year-old female who presented back to the emergency room with abdominal pain. During that evaluation she reported having suicidal thoughts and stated she was not safe to go home. She also stated she was hearing voices and described visual hallucinations as well. She stated the primary stressor in her life was the impending eviction and she had nowhere else to go. For full details please refer to Dr. Ramirez's psychiatric evaluation note. Summary of hospital course: The patient was admitted to the mental health unit she signed in voluntarily. She was initially evaluated by Dr. Ramirez she was also seen by the [facility] psychiatrist covering for the weekend. I assumed her care yesterday. The psychiatric evaluation note and subsequent progress notes were reviewed. The Lexapro was discontinued and the patient was placed back on Cymbalta and she was continued on Risperdal. Staff informed me that over the weekend the patient reported a resolution of any suicidal thoughts and psychosis. It also appears that she has 2-3 more weeks left at her apartment before she has to move. We discussed problem solving strategies in terms of finding new placement area the patient selectively attend groups. We discussed her medications she has no concerns regarding the Cymbalta and Risperdal. We discussed her lack of compliance with outpatient mental health treatment and it is important for her to go to scheduled appointments. She was seen by the streetcar operator for a routine medical consultation. Mental status exam: The patient is alert she is dressed in her own clothing eye contact is appropriate. Hygiene and grooming are adequate. Speech is spontaneous fluent nonpressured. She reports her mood is "fine". She reports no suicidal or homicidal ideation intent or plan. She is endorsing no auditory or visual hallucinations she is endorsing no specific delusions. She endorses no racing thoughts and there is no evidence of hypomania or yvette. She is demonstrating no abnormal involuntary movements. She demonstrates no verbal or physical aggressiveness. Insight and judgment have improved. Cognitively she remains oriented to person place and date. Impressions 1. Major depressive disorder recurrent, rule out PTSD, rule out opiate use disorder, rule out somatic symptom disorder 2. Cluster B traits 3. Impending eviction, noncompliance with outpatient appointments Plan: The patient will be discharged from mental health unit today to return home. Social work will arrange the patient's outpatient mental health follow- up. She will continue on Cymbalta 60 mg daily and Risperdal 2 mg at bedtime. She is instructed to avoid any use of alcohol marijuana or any other illicit drug. There is no imminent safety risk she is appropriate for transition outpatient care. She is reminded that she may present to the emergency room with any acute safety concerns. Again we emphasized the importance of her attending outpatient mental health appointments. Patient Condition at Discharge: Stable Plan - Discharge Summary New Discharge Prescriptions: DULoxetine HCL [Cymbalta] 60 mg PO DAILY #30 capsule. Nicotine 14Mg/24Hr Patch [Habitrol] 1 patch TRANSDERM DAILY #14 patch risperiDONE [RisperDAL] 2 mg PO HS #30 tab Discharge Medication List Pantoprazole Sodium 40 mg PO BID 12/13/13 [History] Simvastatin [Zocor] 40 mg PO HS 10/04/14 [History] Methocarbamol [Robaxin] 750 mg PO TID PRN 02/20/15 [History] Dicyclomine [Bentyl] 20 mg PO QID 07/07/15 [History] [id number] [phone] [Excedrin] 2 tab PO Q6HR PRN 01/16/16 [History] Gabapentin 600 mg PO TID 02/24/16 [History] Famotidine [Pepcid] 20 mg PO BID 04/19/16 [History] Sucralfate [Carafate] 1 gm PO AC-TID 04/19/16 [History] Albuterol Nebulized [Ventolin Nebulized] 2.5 mg INHALATION RT-TID PRN 05/16/16 [ History] Cetirizine HCl [Zyrtec] 10 mg PO DAILY 05/16/16 [History] Ondansetron Odt [Zofran ODT] 4 mg PO Q8HR PRN #5 tab 05/16/16 [Rx] Promethazine HCl 12.5 mg PO Q6H PRN 05/18/16 [History] Diphenox-Atrop 2.5-0.025 mg [Lomotil] 1 tab PO TID PRN 05/30/16 [History] Divalproex [Depakote] 250 mg PO HS 05/30/16 [History] Loperamide [Imodium] 2 mg PO Q4H PRN 05/30/16 [History] [id number]-[id number] [phone] [Excedrin] 2 each PO Q4HR PRN #0 tab 06/22/16 [Rx ] DULoxetine HCL [Cymbalta] 60 mg PO DAILY #30 capsule. 06/22/16 [Rx] Meloxicam [Mobic] 7.5 mg PO DAILY tab 06/22/16 [Rx] Nicotine 14Mg/24Hr Patch [Habitrol] 1 patch TRANSDERM DAILY #14 patch 06/22/16 [ Rx] risperiDONE [RisperDAL] 2 mg PO HS #30 tab 06/22/16 [Rx] Follow up Appointment(s)/Referral(s): Josué Acevedo MD [STAFF PHYSICIAN] - 1-2 days Antonia Grimes MD [Primary Care Provider] - 1-2 days Patient Instructions/Handouts: Abdominal Pain (ED)
== END 2016-06-22 14:22 | disposition home or self-care (01) | DRG 885 ==
LOC: EC 22:38 → 3MHU 06-17 05:30
PROVIDERS: ADMIT Psychiatry & Neurology Psychiatry; ATTEND Psychiatry & Neurology Psychiatry
DX: F33.3 Major depressive disorder, recurrent, severe with psychotic symptoms (principal); R45.851 Suicidal ideations; Z91.19 Patient's noncompliance with other medical treatment and regimen; F41.0 Panic disorder [episodic paroxysmal anxiety]; F45.0 Somatization disorder; G43.909 Migraine, unspecified, not intractable, without status migrainosus; G89.29 Other chronic pain; K21.9 Gastro-esophageal reflux disease without esophagitis; K58.9 Irritable bowel syndrome, unspecified; T44.7X5A Adverse effect of beta-adrenoreceptor antagonists, initial encounter; Z76.5 Malingerer [conscious simulation]; Z79.899 Other long term (current) drug therapy; Z80.9 Family history of malignant neoplasm, unspecified; E78.5 Hyperlipidemia, unspecified; D72.829 Elevated white blood cell count, unspecified; F17.210 Nicotine dependence, cigarettes, uncomplicated; Z88.0 Allergy status to penicillin; Z91.5 Personal history of self-harm; M54.9 Dorsalgia, unspecified; F11.99 Opioid use, unspecified with unspecified opioid-induced disorder; Z62.810 Personal history of physical and sexual abuse in childhood; Z88.1 Allergy status to other antibiotic agents; Z88.8 Allergy status to other drugs, medicaments and biological substances; Z91.041 Radiographic dye allergy status
CPT/HCPCS: 36415; 74000; 74176; 80053; 80164; 80306; 81001; 81025; 82075; 82150; 83605; 83690; 84443; 85025; 85652; 87086; 94640; 96372; 96374; 96375; 96376; 99285

== ENCOUNTER 2016-06-23 18:57 | Emergency (ER) | payer OTHER ==
--- NOTE | 2016-06-23 19:50 | ED ---
General Adult HPI - General Chief complaint: Psychiatric Symptoms Stated complaint: suicidal Time Seen by Provider: 06/23/16 19:11 Source: EMS, RN notes reviewed, old records reviewed Mode of arrival: EMS Limitations: no limitations - History of Present Illness Initial comments: This is a 45-year-old female here for evaluation having. Right hand pain. Patient admits to being suicidal, history of psychiatric disease denies drugs or alcohol. Patient states she's been getting angry and homicidal, punching scott and complains of right hand pain as well. - Related Data Home Medications Medication Instructions Recorded Confirmed Pantoprazole Sodium 40 mg PO BID 12/13/13 06/23/16 Simvastatin [Zocor] 40 mg PO HS 10/04/14 06/23/16 Methocarbamol [Robaxin] 750 mg PO TID PRN 02/20/15 06/23/16 Dicyclomine [Bentyl] 20 mg PO QID 07/07/15 06/23/16 [id number] [phone] 2 tab PO Q6HR PRN 01/16/16 06/23/16 [Excedrin] Gabapentin 600 mg PO TID 02/24/16 06/23/16 Famotidine [Pepcid] 20 mg PO BID 04/19/16 06/23/16 Sucralfate [Carafate] 1 gm PO AC-TID 04/19/16 06/23/16 Albuterol Nebulized [Ventolin 2.5 mg INHALATION RT-TID PRN 05/16/16 06/23/16 Nebulized] Cetirizine HCl [Zyrtec] 10 mg PO DAILY 05/16/16 06/23/16 Promethazine HCl 12.5 mg PO Q6H PRN 05/18/16 06/23/16 Diphenox-Atrop 2.5-0.025 mg 1 tab PO TID PRN 05/30/16 06/23/16 [Lomotil] Divalproex [Depakote] 250 mg PO HS 05/30/16 06/23/16 Loperamide [Imodium] 2 mg PO Q4H PRN 05/30/16 06/23/16 Previous Rx's Medication Instructions Recorded Ondansetron Odt [Zofran ODT] 4 mg PO Q8HR PRN #5 tab 05/16/16 DULoxetine HCL [Cymbalta] 60 mg PO DAILY #30 capsule. 06/22/16 Meloxicam [Mobic] 7.5 mg PO DAILY tab 06/22/16 Nicotine 14Mg/24Hr Patch [Habitrol] 1 patch TRANSDERM DAILY #14 patch 06/22/16 risperiDONE [RisperDAL] 2 mg PO HS #30 tab 06/22/16 Allergies Allergy/AdvReac Type Severity Reaction Status Date / Time Iodinated Contrast Media - Allergy Rash/Hives Verified 06/23/16 19:51 Oral and [Iodinated Contrast Media - IV Dye] Penicillins Allergy Unknown Verified 06/23/16 19:51 Childhood aripiprazole [From Abilify] AdvReac Nausea & Verified 06/23/16 19:51 Vomiting azithromycin AdvReac Nausea & Verified 06/23/16 19:51 Vomiting & Diarrhea cephalexin monohydrate AdvReac Nausea & Verified 06/23/16 19:51 [From Keflex] Vomiting & Diarrhea ciprofloxacin [From Cipro] AdvReac Nausea & Verified 06/23/16 19:51 Vomiting & Diarrhea metronidazole [From Flagyl] AdvReac Nausea & Verified 06/23/16 19:51 Vomiting & Diarrhea Review of Systems ROS Statement: Those systems with pertinent positive or pertinent negative responses have been documented in the HPI. ROS Other: All systems not noted in ROS Statement are negative. Past Medical History Past Medical History: COPD, GERD/Reflux, Hyperlipidemia, Osteoarthritis (OA) Additional Past Medical History / Comment(s): ibs, gastritis, ddd, arthritis. substance abuse History of Any Multi-Drug Resistant Organisms: None Reported Date of last positivie culture/infection: None MDRO Source:: None Past Surgical History: Cholecystectomy, Hysterectomy, Orthopedic Surgery, Tonsillectomy, Tubal Ligation Additional Past Surgical History / Comment(s): right eye cataract, bilateral shoulder surgery x2, right knee surgry, partial hysterectomy, back surgery was to remove skin tags. Past Anesthesia/Blood Transfusion Reactions: No Reported Reaction Past Psychological History: Bipolar, Depression Additional Psychological History / Comment(s): Pt states she has had increased depression lately r/t health issues. She denies suicidal thoughts or plans. She does not wich to be . She does not have any pychiatric care. She has paper work which she is having difficulty completing it is for "Adult services" . She resides alone and has a cat. 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 Smoking Status: Current some day smoker Past Alcohol Use History: None Reported Additional Past Alcohol Use History / Comment(s): Patient was a smoker one and a half packs per day for 30 years and quit last weekend. She denies any medical marijuana, marijuana, street drug use. She does have history of narcotic abuse is currently receiving her medications on a regular basis from a physician in [facility]. She lives at home alone with her cat. She is currently . Past Drug Use History: None Reported Additional Drug Use History / Comment(s): Pt states she has hx of narcotic abuse but it was yrs ago. denies now. - Past Family History Mother Family Medical History: Cancer Additional Family Medical History / Comment(s): patient does not know history on her mother as they have had relationship on and off over the years. Father Family Medical History: No Reported History Additional Family Medical History / Comment(s): Father at age 57 with history of cerebral palsy Son(s) Additional Family Medical History / Comment(s): She has 2 sons with no major medical problems. She does not have any brothers or sisters. General Exam Limitations: no limitations General appearance: alert, in no apparent distress Head exam: Present: atraumatic, normocephalic, normal inspection Eye exam: Present: normal appearance, PERRL, EOMI. Absent: scleral icterus, conjunctival injection, periorbital swelling ENT exam: Present: normal exam, mucous membranes moist Neck exam: Present: normal inspection. Absent: tenderness, meningismus, lymphadenopathy Respiratory exam: Present: normal lung sounds bilaterally. Absent: respiratory distress, wheezes, rales, rhonchi, stridor Cardiovascular Exam: Present: regular rate, normal rhythm, normal heart sounds. Absent: systolic murmur, diastolic murmur, rubs, gallop, clicks GI/Abdominal exam: Present: soft, normal bowel sounds. Absent: distended, tenderness, guarding, rebound, rigid Extremities exam: Present: normal inspection, full ROM, normal capillary refill. Absent: tenderness, pedal edema, joint swelling, calf tenderness Back exam: Present: normal inspection Neurological exam: Present: alert, oriented X3, CN II-XII intact Psychiatric exam: Present: normal affect, normal mood Skin exam: Present: warm, dry, intact, normal color. Absent: rash Course Vital Signs 06/23/16 19:02 Temperature 97.0 F L Pulse Rate 115 H Respiratory 18 Rate Blood Pressure 169/84 O2 Sat by Pulse 99 Oximetry - Reevaluation(s) Reevaluation #1: 06/23/16 19:49 Patient's medically clear for psychiatric evaluation Medical Decision Making - Medical Decision Making 45 female seen and evaluated by psychiatry, patient is safe for discharge home, not currently homicidal or suicidal Disposition Clinical Impression: Situational depression Disposition: HOME SELF-CARE Condition: Good Referrals: Antonia Grimes MD [Primary Care Provider] - 1-2 days
--- NOTE | 2016-06-23 20:25 | XR ---
EXAMINATION TYPE: XR hand complete RT DATE OF EXAM: 06/23/2016 8:20 PM CLINICAL HISTORY: pain TECHNIQUE: Frontal, lateral and oblique images of the right hand are obtained. COMPARISON: None. FINDINGS: There is no acute fracture/dislocation evident. The joint spaces appear within normal limi ts. The overlying soft tissue appears unremarkable. IMPRESSION: There is no acute fracture or dislocation ICD 10 NO FRACTURE, INITIAL EVALUATION
[2016-06-23 22:41] VITALS: BP 100/53; PULSE 94; RESP 14; TEMP 97.8
== END 2016-06-23 22:51 | disposition home or self-care (01) ==
LOC: EC 18:57
DX: F43.21 Adjustment disorder with depressed mood (principal); R45.851 Suicidal ideations; R45.850 Homicidal ideations; M79.641 Pain in right hand; J44.9 Chronic obstructive pulmonary disease, unspecified; K21.9 Gastro-esophageal reflux disease without esophagitis; E78.5 Hyperlipidemia, unspecified; M19.90 Unspecified osteoarthritis, unspecified site; K58.9 Irritable bowel syndrome, unspecified; F17.200 Nicotine dependence, unspecified, uncomplicated; Z79.899 Other long term (current) drug therapy; Z91.041 Radiographic dye allergy status; Z88.0 Allergy status to penicillin; Z88.1 Allergy status to other antibiotic agents; Z88.8 Allergy status to other drugs, medicaments and biological substances
CPT/HCPCS: 82075; 99284

== ENCOUNTER 2020-10-26 00:59 | Emergency (ER) | payer OTHER ==
--- NOTE | 2020-10-26 01:37 | ED ---
Lower Extremity Injury HPI - General Chief Complaint: Extremity Injury, Lower Stated Complaint: Bilateral leg pain Time Seen by Provider: 10/26/20 01:31 Source: patient, family, RN notes reviewed, old records reviewed Mode of arrival: ambulatory Limitations: no limitations - History of Present Illness Initial Comments: This is a 50-year-old female to the ER for evaluation. Patient presents today for evaluation in regards to not feeling well. Some leg pain some cramping some nausea and vomiting of possible urinary tract infection. COPD high cholesterol. Patient states his symptoms woke her up from sleeping no trauma she is able to ambulate without difficulty. No recent fevers cough or congestion, no abdominal pain MD Complaint: other (Lateral leg pain) -: hour(s) Injury: Leg: Right, Left Place: home Severity: mild Severity scale (1-10): 2 Improves With: nothing Worsens With: movement, palpation Context: other (none) Other Symptoms: nausea/vomiting Associated Symptoms: other (none) Treatments Prior to Arrival: splint (none) - Related Data Home Medications Medication Instructions Recorded Confirmed Pantoprazole Sodium 40 mg PO BID 12/13/13 06/23/16 Simvastatin [Zocor] 40 mg PO HS 10/04/14 06/23/16 methocarbamoL [Robaxin] 750 mg PO TID PRN 02/20/15 06/23/16 Dicyclomine [Bentyl] 20 mg PO QID 07/07/15 06/23/16 [id number] 2 tab PO Q6HR PRN 01/16/16 06/23/16 [Excedrin] Gabapentin 600 mg PO TID 02/24/16 06/23/16 Famotidine [Pepcid] 20 mg PO BID 04/19/16 06/23/16 Sucralfate [Carafate] 1 gm PO AC-TID 04/19/16 06/23/16 Albuterol Nebulized [Ventolin 2.5 mg INHALATION RT-TID PRN 05/16/16 06/23/16 Nebulized] Cetirizine HCl [Zyrtec] 10 mg PO DAILY 05/16/16 06/23/16 Promethazine HCl 12.5 mg PO Q6H PRN 05/18/16 06/23/16 Diphenox-Atrop 2.5-0.025 mg 1 tab PO TID PRN 05/30/16 06/23/16 [Lomotil] Divalproex [Depakote] 250 mg PO HS 05/30/16 06/23/16 Loperamide [Imodium] 2 mg PO Q4H PRN 05/30/16 06/23/16 Previous Rx's Medication Instructions Recorded Ondansetron Odt [Zofran ODT] 4 mg PO Q8HR PRN #5 tab 05/16/16 DULoxetine HCL [Cymbalta] 60 mg PO DAILY #30 capsule. 06/22/16 Meloxicam [Mobic] 7.5 mg PO DAILY tab 06/22/16 Nicotine 14Mg/24Hr Patch [Habitrol] 1 patch TRANSDERM DAILY #14 patch 06/22/16 risperiDONE [RisperDAL] 2 mg PO HS #30 tab 06/22/16 Allergies Allergy/AdvReac Type Severity Reaction Status Date / Time Iodinated Contrast Media Allergy Rash/Hives Verified 10/26/20 01:08 [Iodinated Contrast Media - IV Dye] Penicillins Allergy Unknown Verified 10/26/20 01:08 Childhood aripiprazole [From Abilify] AdvReac Nausea & Verified 10/26/20 01:08 Vomiting azithromycin AdvReac Nausea & Verified 10/26/20 01:08 Vomiting & Diarrhea cephalexin monohydrate AdvReac Nausea & Verified 10/26/20 01:08 [From Keflex] Vomiting & Diarrhea ciprofloxacin [From Cipro] AdvReac Nausea & Verified 10/26/20 01:08 Vomiting & Diarrhea metronidazole [From Flagyl] AdvReac Nausea & Verified 10/26/20 01:08 Vomiting & Diarrhea Review of Systems ROS Statement: Those systems with pertinent positive or pertinent negative responses have been documented in the HPI. ROS Other: All systems not noted in ROS Statement are negative. Past Medical History Past Medical History: COPD, GERD/Reflux, Hyperlipidemia, Osteoarthritis (OA) Additional Past Medical History / Comment(s): ibs, gastritis, ddd, arthritis. substance abuse History of Any Multi-Drug Resistant Organisms: None Reported Date of last positivie culture/infection: None MDRO Source:: None Past Surgical History: Cholecystectomy, Hysterectomy, Orthopedic Surgery, Tonsillectomy, Tubal Ligation Additional Past Surgical History / Comment(s): right eye cataract, bilateral shoulder surgery x2, right knee surgry, partial hysterectomy, back surgery was to remove skin tags. Past Anesthesia/Blood Transfusion Reactions: No Reported Reaction Past Psychological History: Bipolar, Depression Smoking Status: Current every day smoker Past Alcohol Use History: None Reported Past Drug Use History: None Reported - Past Family History Mother Family Medical History: Cancer Additional Family Medical History / Comment(s): patient does not know history on her mother as they have had relationship on and off over the years. Father Family Medical History: No Reported History Additional Family Medical History / Comment(s): Father at age 57 with history of cerebral palsy Son(s) Additional Family Medical History / Comment(s): She has 2 sons with no major medical problems. She does not have any brothers or sisters. General Exam - General Exam Comments Initial Comments: No significant swelling or tenderness noted to the legs, good pulses dorsalis pedis and posterior tibialis Limitations: no limitations General appearance: alert, in no apparent distress Head exam: Present: atraumatic, normocephalic, normal inspection Eye exam: Present: normal appearance, PERRL, EOMI. Absent: scleral icterus, conjunctival injection, periorbital swelling ENT exam: Present: normal exam, mucous membranes moist Neck exam: Present: normal inspection. Absent: tenderness, meningismus, lymphadenopathy Respiratory exam: Present: normal lung sounds bilaterally. Absent: respiratory distress, wheezes, rales, rhonchi, stridor Cardiovascular Exam: Present: regular rate, normal rhythm, normal heart sounds. Absent: systolic murmur, diastolic murmur, rubs, gallop, clicks GI/Abdominal exam: Present: soft, normal bowel sounds. Absent: distended, tenderness, guarding, rebound, rigid Extremities exam: Present: normal inspection, full ROM, normal capillary refill. Absent: tenderness, pedal edema, joint swelling, calf tenderness Back exam: Present: normal inspection Neurological exam: Present: alert, oriented X3, CN II-XII intact Psychiatric exam: Present: normal affect, normal mood Skin exam: Present: warm, dry, intact, normal color. Absent: rash Course Vital Signs 10/26/20 01:03 Temperature 98.6 F Pulse Rate 86 Respiratory 20 Rate Blood Pressure 138/83 O2 Sat by Pulse 100 Oximetry - Reevaluation(s) Reevaluation #1: 10/26/20 03:15 Record is reviewed Reevaluation #2: 10/26/20 03:15 Symptoms are improved here in the ER Reevaluation #3: 10/26/20 03:15 Spoke with patient regarding findings questions are answered Medical Decision Making - Medical Decision Making 50 female with bilateral leg pain leg pain is improved urine is negative for UTI. Patient symptoms are not improved and patient can be discharged home Disposition Clinical Impression: Intractable nausea and vomiting, Bilateral leg pain Disposition: HOME SELF-CARE Condition: Good Instructions (If sedation given, give patient instructions): Leg Pain (ED), Acute Nausea and Vomiting (ED) Is patient prescribed a controlled substance at d/c from ED?: No Referrals: Antonia Grimes MD [Primary Care Provider] - 1-2 days
[2020-10-26] MEDS ORDERED: ONDANSETRON 4 MG ODT STARTER PACK 2 TAB BTL PO STA (02:02)
[2020-10-26] MEDS ORDERED: ACET/COD 300 MG/30 MG STARTER PACK 6 TAB BTL PO STA (02:02)
[2020-10-26] MEDS ORDERED: ONDANSETRON ODT 4 MG TAB PO STA (02:02)
[2020-10-26] MEDS ORDERED: Acetaminophen-Codeine 300-30mg TAB PO STA (02:02)
[2020-10-26 03:18] VITALS: RESP 18
[2020-10-26 03:38] LABS: Appearance,Urine Clear (Clear); Bilirubin,Urine Negative (Negative); Blood,Urine Moderate (Negative); Color,Urine Light Yellow; Glucose,Urine (UA) Negative (Negative); Ketones,Urine Negative (Negative); Leukocyte Esterase,Urine Negative (Negative); Nitrite,Urine Negative (Negative); PH, Urine 6.5 (5.0-8.0); Protein,Urine Negative (Negative); RBC,Urine 7 /hpf (0-5); Specific Gravity,Urine 1.011 (1.001-1.035); Squamous Epithelial Cell,Urine <1 /hpf (0-4); Urobilinogen,Urine <2.0 mg/dL (<2.0); WBC,Urine 1 /hpf (0-5)
[2020-10-26 04:00] VITALS: BP 148/84; PULSE 78; TEMP 97.9
== END 2020-10-26 03:59 | disposition home or self-care (01) ==
LOC: EC 00:59
DX: M79.605 Pain in left leg (principal); M79.604 Pain in right leg; R11.2 Nausea with vomiting, unspecified; J44.9 Chronic obstructive pulmonary disease, unspecified; K21.9 Gastro-esophageal reflux disease without esophagitis; E78.5 Hyperlipidemia, unspecified; F17.200 Nicotine dependence, unspecified, uncomplicated; Z79.899 Other long term (current) drug therapy; Z88.8 Allergy status to other drugs, medicaments and biological substances; Z88.0 Allergy status to penicillin; Z88.1 Allergy status to other antibiotic agents
CPT/HCPCS: 81001; 99283; S0119

== ENCOUNTER 2020-10-29 07:26 | Emergency (ER) | payer OTHER ==
[2020-10-29 07:32] VITALS: BP 109/76; PULSE 97; RESP 18; TEMP 98.9
[2020-10-29] MEDS ORDERED: SODIUM CHLORIDE 0.9% 1,000 ML IV STA (07:41)
[2020-10-29] MEDS ORDERED: KETOROLAC 15 MG/ML 1 ML VIAL IVP STA (07:41)
[2020-10-29] MEDS ORDERED: ONDANSETRON 4 MG/2 ML VIAL IVP STA (07:41)
--- NOTE | 2020-10-29 08:30 | XR ---
EXAMINATION TYPE: XR KUB DATE OF EXAM: 10/29/2020 COMPARISON: NONE HISTORY: Pain TECHNIQUE: Single supine KUB image of the abdomen is obtained FINDINGS: Small bowel demonstrates no evidence for dilatation or air fluid levels. Gas and fecal material is seen in non-distended colon. No convincing evidence for pneumoperitoneum. No unusual calcifications. The lung bases are clear. The osseous structures are intact. IMPRESSION: 1. Overall nonobstructive bowel gas pattern.
[2020-10-29 08:37] LABS: Basophils # (A) 0.1 k/uL (0-0.2); Basophils % (A) 1 %; Eosinophils # (A) 0.2 k/uL (0-0.7); Eosinophils % (A) 2 %; HCT 36.6 % (34.0-46.0); HGB 12.1 gm/dL (11.4-16.0); Lymphocytes # (A) 1.8 k/uL (1.0-4.8); Lymphocytes % (A) 26 %; MCH 33.3 pg (25.0-35.0); MCHC 33.1 g/dL (31.0-37.0); MCV 100.4 fL (80.0-100.0); Mean Platelet Volume 7.4; Monocytes # (A) 0.6 k/uL (0-1.0); Monocytes % (A) 9 %; Neutrophils # (A) 4.2 k/uL (1.3-7.7); Neutrophils % (A) 61 %; Platelet Count 409 k/uL (150-450); RBC 3.65 m/uL (3.80-5.40); RDW 13.5 % (11.5-15.5); WBC 6.9 k/uL (3.8-10.6)
[2020-10-29 08:47] LABS: ALT 21 U/L (4-34); AST 30 U/L (14-36); African American GFR (CKD) >90 (>60 ml/min/1.73 sqM); Albumin 4.1 g/dL (3.5-5.0); Alkaline Phosphatase 70 U/L (38-126); Amylase 93 U/L (30-110); Anion Gap 8 mmol/L; Blood Urea Nitrogen 20 mg/dL (7-17); Calcium 9.9 mg/dL (8.4-10.2); Carbon Dioxide 20 mmol/L (22-30); Chloride 107 mmol/L (98-107); Glucose 116 mg/dL (74-99); Lipase 251 U/L (23-300); Non-African American GFR(CKD) >90 (>60 ml/min/1.73 sqM); Potassium 4.7 mmol/L (3.5-5.1); Sodium 135 mmol/L (137-145); Total Bilirubin 0.2 mg/dL (0.2-1.3); Total Protein 6.6 g/dL (6.3-8.2)
[2020-10-29] MEDS ORDERED: ONDANSETRON 4 MG ODT STARTER PACK 2 TAB BTL PO STA (09:01)
--- NOTE | 2020-10-29 09:02 | ED ---
General Adult HPI - General Chief complaint: Abdominal Pain Stated complaint: Abd pain/spider bites Time Seen by Provider: 10/29/20 07:33 Source: patient, RN notes reviewed Mode of arrival: ambulatory Limitations: no limitations - History of Present Illness Initial comments: Patient is a 50-year-old female that presents to the emergency department compl aining of several small spider bites and some nausea. She notes that she was in a homeless [place] and that they have spiders crawling around and she didn't bit several times. She denied any other issues or complaints at this time except for nausea. She denied any abdominal pain. She denied any chest pain shortness of breath headache vomiting diarrhea constipation fever fatigue chills. - Related Data Home Medications Medication Instructions Recorded Confirmed Pantoprazole Sodium 40 mg PO BID 12/13/13 06/23/16 Simvastatin [Zocor] 40 mg PO HS 10/04/14 06/23/16 methocarbamoL [Robaxin] 750 mg PO TID PRN 02/20/15 06/23/16 Dicyclomine [Bentyl] 20 mg PO QID 07/07/15 06/23/16 [id number] [phone] 2 tab PO Q6HR PRN 01/16/16 06/23/16 [Excedrin] Gabapentin 600 mg PO TID 02/24/16 06/23/16 Famotidine [Pepcid] 20 mg PO BID 04/19/16 06/23/16 Sucralfate [Carafate] 1 gm PO AC-TID 04/19/16 06/23/16 Albuterol Nebulized [Ventolin 2.5 mg INHALATION RT-TID PRN 05/16/16 06/23/16 Nebulized] Cetirizine HCl [Zyrtec] 10 mg PO DAILY 05/16/16 06/23/16 Promethazine HCl 12.5 mg PO Q6H PRN 05/18/16 06/23/16 Diphenox-Atrop 2.5-0.025 mg 1 tab PO TID PRN 05/30/16 06/23/16 [Lomotil] Divalproex [Depakote] 250 mg PO HS 05/30/16 06/23/16 Loperamide [Imodium] 2 mg PO Q4H PRN 05/30/16 06/23/16 Previous Rx's Medication Instructions Recorded Ondansetron Odt [Zofran ODT] 4 mg PO Q8HR PRN #5 tab 05/16/16 DULoxetine HCL [Cymbalta] 60 mg PO DAILY #30 capsule. 06/22/16 Meloxicam [Mobic] 7.5 mg PO DAILY tab 06/22/16 Nicotine 14Mg/24Hr Patch [Habitrol] 1 patch TRANSDERM DAILY #14 patch 06/22/16 risperiDONE [RisperDAL] 2 mg PO HS #30 tab 06/22/16 Allergies Allergy/AdvReac Type Severity Reaction Status Date / Time Iodinated Contrast Media Allergy Rash/Hives Verified 10/29/20 07:32 [Iodinated Contrast Media - IV Dye] Penicillins Allergy Unknown Verified 10/29/20 07:32 Childhood aripiprazole [From Abilify] AdvReac Nausea & Verified 10/29/20 07:32 Vomiting azithromycin AdvReac Nausea & Verified 10/29/20 07:32 Vomiting & Diarrhea cephalexin monohydrate AdvReac Nausea & Verified 10/29/20 07:32 [From Keflex] Vomiting & Diarrhea ciprofloxacin [From Cipro] AdvReac Nausea & Verified 10/29/20 07:32 Vomiting & Diarrhea metronidazole [From Flagyl] AdvReac Nausea & Verified 10/29/20 07:32 Vomiting & Diarrhea Review of Systems ROS Statement: Those systems with pertinent positive or pertinent negative responses have been documented in the HPI. ROS Other: All systems not noted in ROS Statement are negative. Past Medical History Past Medical History: COPD, GERD/Reflux, Hyperlipidemia, Osteoarthritis (OA) Additional Past Medical History / Comment(s): ibs, gastritis, ddd, arthritis. substance abuse History of Any Multi-Drug Resistant Organisms: None Reported Date of last positivie culture/infection: None MDRO Source:: None Past Surgical History: Cholecystectomy, Hysterectomy, Orthopedic Surgery, Tonsillectomy, Tubal Ligation Additional Past Surgical History / Comment(s): right eye cataract, bilateral shoulder surgery x2, right knee surgry, partial hysterectomy, back surgery was to remove skin tags. Past Anesthesia/Blood Transfusion Reactions: No Reported Reaction Past Psychological History: Bipolar, Depression Smoking Status: Current every day smoker Past Alcohol Use History: None Reported Past Drug Use History: None Reported - Past Family History Mother Family Medical History: Cancer Additional Family Medical History / Comment(s): patient does not know history on her mother as they have had relationship on and off over the years. Father Family Medical History: No Reported History Additional Family Medical History / Comment(s): Father at age 57 with history of cerebral palsy Son(s) Additional Family Medical History / Comment(s): She has 2 sons with no major medical problems. She does not have any brothers or sisters. General Exam Limitations: no limitations Head exam: Present: atraumatic, normocephalic, normal inspection Eye exam: Present: normal appearance, PERRL, EOMI. Absent: scleral icterus, conjunctival injection, periorbital swelling Neck exam: Present: normal inspection Respiratory exam: Present: normal lung sounds bilaterally. Absent: respiratory distress, wheezes, rales, rhonchi, stridor Cardiovascular Exam: Present: regular rate, normal rhythm, normal heart sounds. Absent: systolic murmur, diastolic murmur, rubs, gallop, clicks GI/Abdominal exam: Present: soft, normal bowel sounds. Absent: distended, tenderness, guarding, rebound, rigid Extremities exam: Present: normal inspection, full ROM, normal capillary refill. Absent: tenderness, pedal edema, joint swelling, calf tenderness Neurological exam: Present: alert, oriented X3 Psychiatric exam: Present: normal affect, normal mood Skin exam: Present: warm, dry, intact, normal color, other (2 small spider bites to the left axilla, 2 small spider bites to the right hip no signs or symptoms of infection.). Absent: rash Course Vital Signs 10/29/20 07:27 Temperature 98.9 F Pulse Rate 97 Respiratory 18 Rate Blood Pressure 109/76 O2 Sat by Pulse 98 Oximetry Medical Decision Making - Medical Decision Making 50-year-old female complaining of several small spider bites to the left axilla and right hip, mild nausea no abdominal pain. Basic labs, KUB, 1 L normal saline, 4 mg of Zofran, 15 mg of Toradol ordered. Labs unremarkable. KUB negative for any acute process. Case discussed Dr. Leal, patient discharge home. - Lab Data Result diagrams: 10/29/20 08:12 10/29/20 08:12 Lab Results 10/29/20 10/29/20 Range/Units 08:12 08:12 WBC 6.9 (3.8-10.6) k/uL RBC 3.65 L (3.80-5.40) m/uL Hgb 12.1 (11.4-16.0) gm/dL Hct 36.6 (34.0-46.0) % MCV 100.4 H (80.0-100.0) fL MCH 33.3 (25.0-35.0) pg MCHC 33.1 (31.0-37.0) g/dL RDW 13.5 (11.5-15.5) % Plt Count 409 (150-450) k/uL MPV 7.4 Neutrophils % 61 % Lymphocytes % 26 % Monocytes % 9 % Eosinophils % 2 % Basophils % 1 % Neutrophils # 4.2 (1.3-7.7) k/uL Lymphocytes # 1.8 (1.0-4.8) k/uL Monocytes # 0.6 (0-1.0) k/uL Eosinophils # 0.2 (0-0.7) k/uL Basophils # 0.1 (0-0.2) k/uL Sodium 135 L (137-145) mmol/L Potassium 4.7 (3.5-5.1) mmol/L Chloride 107 (98-107) mmol/L Carbon Dioxide 20 L (22-30) mmol/L Anion Gap 8 mmol/L BUN 20 H (7-17) mg/dL Creatinine 0.71 (0.52-1.04) mg/dL Est GFR (CKD-EPI)AfAm >90 (>60 ml/min/1.73 sqM) Est GFR (CKD-EPI)NonAf >90 (>60 ml/min/1.73 sqM) Glucose 116 H (74-99) mg/dL Calcium 9.9 (8.4-10.2) mg/dL Total Bilirubin 0.2 (0.2-1.3) mg/dL AST 30 (14-36) U/L ALT 21 (4-34) U/L Alkaline Phosphatase 70 (38-126) U/L Total Protein 6.6 (6.3-8.2) g/dL Albumin 4.1 (3.5-5.0) g/dL Amylase 93 (30-110) U/L Lipase 251 (23-300) U/L - Radiology Data Radiology results: report reviewed, image reviewed KUB: Overall nonobstructive bowel gas pattern. Disposition Clinical Impression: Spider bite, Nausea Disposition: HOME SELF-CARE Condition: Stable Instructions (If sedation given, give patient instructions): Abdominal Pain (ED) Additional Instructions: Please return to the Emergency Department if symptoms worsen or any other concerns. Take Zofran as prescribed. Follow-up with primary care in the next 1-2 days. Is patient prescribed a controlled substance at d/c from ED?: No Referrals: Antonia Grimes MD [Primary Care Provider] - 1-2 days Time of Disposition: 09:02
== END 2020-10-29 09:28 | disposition home or self-care (01) ==
LOC: EC 07:26
DX: T63.301A Toxic effect of unspecified spider venom, accidental (unintentional), initial encounter (principal); K21.9 Gastro-esophageal reflux disease without esophagitis; J44.9 Chronic obstructive pulmonary disease, unspecified; E78.5 Hyperlipidemia, unspecified; F17.200 Nicotine dependence, unspecified, uncomplicated; Z88.0 Allergy status to penicillin; Z79.899 Other long term (current) drug therapy; Z88.1 Allergy status to other antibiotic agents; Z88.8 Allergy status to other drugs, medicaments and biological substances
CPT/HCPCS: 99284; 96374; 96375; 96361; 36415; 80053; 82150; 83690; 85025; 74018; J2405; J1885; S0119